=== PATIENT | female | born 1975 | race Caucasian/White ===

== ENCOUNTER → 2020-05-29 08:52 | Outpatient (BNVA) | payer MEDICARE, MEDICAID, SELFPAY | PROVIDERS: PCP Internal Medicine; Visit Provider Surgery | DX: N61.1 Abscess of the breast and nipple (principal) | CPT/HCPCS: 10140; 10160; 99202 ==

== ENCOUNTER → 2020-06-05 09:52 | Outpatient (BNVA) | payer MEDICARE, MEDICAID, SELFPAY | PROVIDERS: PCP Internal Medicine; Visit Provider Surgery | DX: N61.1 Abscess of the breast and nipple (principal) | CPT/HCPCS: 99212 ==

== ENCOUNTER → 2020-07-03 15:44 | Outpatient (BNVA) | payer MEDICARE, MEDICAID, SELFPAY | PROVIDERS: PCP Internal Medicine; Visit Provider Surgery | DX: Z87.2 Personal history of diseases of the skin and subcutaneous tissue (principal) | CPT/HCPCS: 99212 ==

== ENCOUNTER → 2020-07-10 13:16 | Outpatient (BNVA) | payer MEDICARE, MEDICAID, SELFPAY | PROVIDERS: PCP Internal Medicine; Visit Provider Surgery | DX: Z91.89 Other specified personal risk factors, not elsewhere classified (principal) | CPT/HCPCS: 99212 ==

== ENCOUNTER → 2020-07-25 15:47 | Outpatient (BNVA) | payer MEDICARE, MEDICAID, SELFPAY | PROVIDERS: PCP Internal Medicine; Visit Provider Surgery | DX: L73.9 Follicular disorder, unspecified (principal); N61.1 Abscess of the breast and nipple | CPT/HCPCS: 99212 ==

== ENCOUNTER 2021-05-20 12:44 | Outpatient (RCR) | payer MEDICARE, MEDICAID, SELFPAY | END 2021-06-18 15:39 | disposition home or self-care (01) | LOC: HO.WCC 12:44 | PROVIDERS: PCP Internal Medicine; Visit Provider Physician Assistant | DX: T81.31XD Disruption of external operation (surgical) wound, not elsewhere classified, subsequent encounter (principal); L98.492 Non-pressure chronic ulcer of skin of other sites with fat layer exposed; G90.50 Complex regional pain syndrome I, unspecified; N64.89 Other specified disorders of breast; I10 Essential (primary) hypertension; F17.210 Nicotine dependence, cigarettes, uncomplicated | CPT/HCPCS: 11042; 99212 ==

== ENCOUNTER 2021-06-03 13:50 | Outpatient (REF) | payer MEDICARE, MEDICAID, SELFPAY ==
[2021-06-03 14:26] LABS: MANUAL DIFF FLAG NO
[2021-06-03 14:41] LABS: Basophils Percent Auto 0.2 % (0-2); Eosinophils Absolute Auto 0.1 X10*3/uL (0.0-0.4); Eosinophils Percent Auto 1.3 % (0-4); Hematocrit 43.8 % (37.0-47.0); Hemoglobin 15.1 g/dl (12.0-16.0); Imm Gran Abs Auto 0.02 X10*3/uL (0.00-0.03); Imm Gran Pct Auto 0.2 % (0.0-0.4); Lymphocytes Absolute Auto 1.8 X10*3/uL (1.2-4.9); Lymphocytes Percent Auto 21.5 % (20-40); Mean Corpuscular HGB Conc 34.5 g/dl (31.0-35.0); Mean Corpuscular Hemoglobin 30.3 pg (27.0-33.0); Mean Corpuscular Volume 87.8 fL (80.0-98.0); Mean Platelet Volume 9.1 fL (9.4-12.3); Monocytes Absolute Auto 0.3 X10*3/uL (0.1-1.2); Neutrophils Absolute Auto 6.2 x10*3/uL (2.0-8.3); Neutrophils Percent Auto 72.8 % (45-73); Platelet Count 298 X10*3/uL (160-400); Red Blood Count 4.99 X10*6/uL (4.20-5.50); Red Cell Distribution Width 11.9 % (11.0-16.0); White Blood Count 8.5 X10*3/uL (4.8-10.8)
[2021-06-03 14:51] LABS: Estimated Average Glucose 100 mg/dL; Hemoglobin A1C 124.3275 umol/L; Hemoglobin A1c % 5.1 %
[2021-06-03 15:10] LABS: Alanine Aminotransferase 30 U/L (0-31); Albumin Level 4.3 g/dL (3.5-5.0); Alkaline Phosphatase 76 U/L (39-117); Anion Gap 20 (12-20); Aspartate Amino Transferase 26 U/L (5-31); Bilirubin Total 0.6 mg/dL (0.0-1.0); Blood Urea Nitrogen 4 mg/dL (9-16); Calcium 10.3 mg/dL (8.4-10.2); Carbon Dioxide 28 mmol/L (22-29); Chloride 105 mmol/L (96-108); Cholesterol 209 mg/dL; Estimated Glomerular Filt Rate > 60; Glucose Random 100 mg/dL (60-115); HDL Cholesterol 43 mg/dL; LDL Cholesterol Calculated 142 mg/dl; Potassium 3.7 mmol/L (3.3-5.1); Sodium 149 mmol/L (135-145); Total Protein 7.6 g/dL (6.5-8.0); Triglycerides 120 mg/dL; Uric Acid 6.8 mg/dL (2.4-5.7)
[2021-06-03 15:33] LABS: Free T4 (Free Thyroxine) 1.18 ng/dL (0.71-1.85); Thyroid Stimulating Hormone 1.26 uIU/mL (0.32-4.0); Vitamin D 25-OH Total 63.2 ng/mL (>30)
[2021-06-03 15:42] LABS: Folate 14.8 ng/mL (> or = 4.0); Vitamin B12 481 pg/mL (200-900)
== END 2021-06-03 13:51 | disposition home or self-care (01) ==
LOC: HO.LAB 13:50
PROVIDERS: PCP Internal Medicine; Visit Provider Internal Medicine
DX: E78.00 Pure hypercholesterolemia, unspecified (principal); I10 Essential (primary) hypertension
CPT/HCPCS: 36415; 80053; 80061; 82306; 82607; 82746; 83036; 84439; 84443; 84550; 85025

== ENCOUNTER → 2021-10-18 11:24 | Outpatient (BNVA) | payer MEDICARE, MEDICAID, SELFPAY | PROVIDERS: PCP Internal Medicine; Visit Provider Surgery | DX: L72.0 Epidermal cyst (principal); L02.211 Cutaneous abscess of abdominal wall | CPT/HCPCS: 10060; 99212 ==

== ENCOUNTER 2021-11-20 13:58 | Emergency (ER) | payer MEDICARE, MEDICAID, SELFPAY ==
--- NOTE | ~2021-11-20 | XR_ITS ---
EXAMINATION: XR CHEST CLINICAL INFORMATION: Chest pain. COMPARISON: None TECHNIQUE: Frontal view of the chest was obtained. FINDINGS: No significant abnormality is noted involving the heart, lungs, mediastinum, bony thorax or soft tissues. XR/XR chest 1V IMPRESSION: No acute cardiopulmonary process.
[2021-11-20 14:01] VITALS: BP 188/101; PULSE 126; RESP 20; TEMP 37.2; O2SAT 99; BMI 38.7
--- NOTE | 2021-11-20 14:05 | ECG_ITS ---
Test Reason : chest pain Blood Pressure : / mmHG Vent. Rate : 124 BPM Atrial Rate : 124 BPM P-R Int : 172 ms QRS Dur : 084 ms QT Int : 302 ms P-R-T Axes : 021 -04 064 degrees QTc Int : 433 ms Sinus tachycardia Left ventricular hypertrophy with repolarization abnormality ( R in aVL ) Cannot rule out Inferior infarct , age undetermined Abnormal ECG When compared with ECG of 04-FEB-2012 23:57, No significant change was found Referred By: Generic ED Physician Electronically Signed By:KEL BARRETT
[2021-11-20 15:15] VITALS: BP 138/94; PULSE 117; RESP 18; O2SAT 99
[2021-11-20 15:27] LABS: MANUAL DIFF FLAG NO
[2021-11-20 15:29] LABS: Basophils Absolute Auto 0.1 X10*3/uL (0.0-0.2); Basophils Percent Auto 0.5 % (0-2); Eosinophils Absolute Auto 0.1 X10*3/uL (0.0-0.4); Eosinophils Percent Auto 0.9 % (0-4); Hematocrit 44.4 % (37.0-47.0); Hemoglobin 15.4 g/dl (12.0-16.0); Imm Gran Abs Auto 0.03 X10*3/uL (0.00-0.03); Imm Gran Pct Auto 0.3 % (0.0-0.4); Lymphocytes Percent Auto 20.7 % (20-40); Mean Corpuscular HGB Conc 34.7 g/dl (31.0-35.0); Mean Corpuscular Hemoglobin 29.1 pg (27.0-33.0); Mean Corpuscular Volume 83.9 fL (80.0-98.0); Mean Platelet Volume 8.7 fL (9.4-12.3); Monocytes Absolute Auto 0.4 X10*3/uL (0.1-1.2); Monocytes Percent Auto 3.9 % (2-11); Neutrophils Absolute Auto 7.2 x10*3/uL (2.0-8.3); Neutrophils Percent Auto 73.7 % (45-73); Platelet Count 288 X10*3/uL (160-400); Red Blood Count 5.29 X10*6/uL (4.20-5.50); Red Cell Distribution Width 12.7 % (11.0-16.0); White Blood Count 9.8 X10*3/uL (4.8-10.8)
--- NOTE | 2021-11-20 15:32 | PC.NURSE ---
Pt alert and oriented x4. Respirations even and unlabored. IV established, labs drawn and sent.
[2021-11-20 15:44] LABS: Anion Gap 16 (12-20); Blood Urea Nitrogen 3 mg/dL (9-16); Calcium 9.9 mg/dL (8.4-10.2); Carbon Dioxide 27 mmol/L (22-29); Chloride 98 mmol/L (96-108); Creatinine Clr Calc Pharmacy 99.8; Estimated Glomerular Filt Rate > 60; Glucose Random 114 mg/dL (60-115); Potassium 3.1 mmol/L (3.3-5.1); Sodium 138 mmol/L (135-145)
[2021-11-20 15:47] LABS: Troponin-I High Sensitivity < 3.5 ng/L (<3.5-17.0)
--- NOTE | 2021-11-20 16:01 | ED.CHESTPAIN ---
HPI - Chest Pain General Chief Complaint: Chest Pain Stated Complaint: chest pain, dizzy Time Seen by Provider: 11/20/21 15:09 Source: patient Mode of arrival: ambulatory Limitations: no limitations History of Present Illness HPI narrative: This is a 46-year-old female past medical history significant for reflex sympathetic dystrophy currently wheelchair-bound, hypothyroidism, hypertension, migraines, depression, hyperparathyroidism presenting to the emergency department with complaints of chest pain, palpitations, brain ?fogginess? fatigue, malaise since 13:00. Patient tells me that she noticed that her heart was racing, tells me this never happens to her. She reports that these palpitations started when she was lying in bed, relaxing, she reports that then she got substernal chest pain with radiation to the left upper extremity, at times she describes it as pleuritic. She reports that she has a history of hypertension however she checks her blood pressures at they have all been within normal range. She reports that she feels foggy and like something is off. Patient reports to me she is mainly wheelchair bound. Denies any recent travel. Currently on the Mirena IUD. No history of PE or DVT. Related Data Home Medications Medication Instructions Recorded Confirmed amlodipine 10 mg tablet (Norvasc) 10 mg PO DAILY 05/29/20 09/25/21 diazepam 5 mg tablet (Valium) 5 mg PO TID PRN 05/29/20 09/25/21 levothyroxine 125 mcg capsule 125 mcg PO DAILY 05/29/20 09/25/21 meclizine 25 mg tablet 25 mg PO BID 05/29/20 09/25/21 naratriptan 2.5 mg tablet (Amerge) See Rx Instructions PO .COMPLEX 05/29/20 09/25/21 amitriptyline 25 mg tablet 25 mg PO BEDTIME 06/04/21 09/25/21 hydromorphone 8 mg tablet 8 mg PO .every hour PRN 06/04/21 09/25/21 Previous Rx's Medication Instructions Recorded cholecalciferol (vitamin D3) 1,250 1,250 mcg PO QWEEK 90 days #13 caps 02/20/21 mcg (50,000 unit) capsule folic acid 1 mg tablet 1 mg PO DAILY 90 days #90 tabs 02/20/21 blood pressure monitor #1 ea 05/17/21 montelukast 10 mg tablet 10 mg PO BEDTIME #90 tabs 09/16/21 Allergies Allergy/AdvReac Type Severity Reaction Status Date / Time ketamine [KETAMINE] Allergy Severe FULL BODY Verified 11/20/21 14:01 MUSCLE SPASM, CONTRACTIONS, increase in pain - severe sensitivity levofloxacin [From LEVAQUIN] Allergy Severe FLU Verified 11/20/21 14:01 SYMPTOMS sulfamethoxazole Allergy Severe FLU LIKE Verified 11/20/21 14:01 [From BACTRIM DS] SYMPTOMS metoprolol [METOPROLOL] Allergy Unknown MUSCLE Verified 11/20/21 14:01 CONTRACTION,TREMORS Sulfa (Sulfonamide Allergy Unknown UNKNOWN Verified 11/20/21 14:01 Antibiotics) [SULFA (SULFONAMIDE ANTIBIOTICS)] hydrochlorothiazide AdvReac Unknown Unknown Verified 11/20/21 14:01 From TORECAN Allergy Unknown UNKNOWN Uncoded 10/18/21 11:57 steri strips AdvReac Unknown skin Uncoded 10/18/21 11:57 irritation Review of Systems Review of Systems: Constitutional : No Weight loss, No Fever, No Chills, + Fatigue, + Malaise ENT/Mouth : No sore throat, No Rhinorrhea Eyes: No Eye Pain, No Swelling, No Redness Cardiovascular : + Chest Pain, No SOB, No Dyspnea on Exertion, No Orthopnea, No Edema, + Palpitations Respiratory : No Cough, No Sputum, No Wheezing Gastrointestinal : No Nausea, No Vomiting, No Diarrhea, No Constipation, No abdominal Pain, No Hematochezia, No Melena Genitourinary : No Dysuria, No Urinary Frequency, No Hematuria, Musculoskeletal : No joint pain, No Myalgias, No Joint Swelling Skin : No Skin Lesions, No rash Neuro : No Weakness, No Numbness, + Dizziness, No Headache All other systems reviewed and are negative Yes all other systems are reviewed and are negative [facility] Past Medical History Medical History Allergic rhinitis GERD (gastroesophageal reflux disease) Hypercholesterolemia Hypertension Hypothyroidism Ischemic colitis Migraine Overactive bladder Polycystic ovarian disease Primary hyperparathyroidism Psoriasis Reflex sympathetic dystrophy Right distal ulnar fracture Thyroid nodule Tobacco abuse Surgical History History of arthroscopy of right knee (1997) History of cholecystectomy (2010) History of incision and drainage (2007) History of oral surgery (2008) History of placement of ear tubes (1977) History of removal of cyst (1999) History of right knee surgery (2001) Hx of arthroscopy (2015) Hx of removal of cyst (2007) Family History Family History Mother History of breast cancer, Onset Age: 45 Maternal Grandmother History of breast cancer, Onset Age: 60 Paternal Uncle Substance abuse Schizophrenia Paternal Grandfather Substance abuse Maternal Grandfather Substance abuse Social History Social History Housing: Apartment Alcohol intake: never Patient Tobacco Use Status: Current everyday Tobacco user Tobacco use type: Cigarette Cigarettes Per Day: 14 Years Smoked: 6 e-Cigarette/Vaping Use: Never Used Second Hand Smoke Exposure: No Use of substances other than those prescribed or required for medical reasons: No Advance Directives: No Advance Directives Information Provided: No Current occupational status: unemployed Cognitive needs: No Vision needs: No Physical Exam Vital Signs: Vital Signs: Last Vital Signs Temp 99.0 F 11/20/21 14:01 Pulse 93 11/20/21 17:20 Resp 13 11/20/21 17:20 BP 150/93 H 11/20/21 17:20 Pulse Ox 99 11/20/21 17:20 O2 Del Method 11/20/21 17:20 BMI result Body Mass Index 38.7 Course Reevaluation(s) Reevaluation #1: Patient's CBC appears to be around baseline. Potassium slightly low, will be repleted with oral potassium. Other acute electrolyte abnormalities requiring intervention. Troponin negative, EKG nonischemic. BNP within normal limits. CXR with no acute findigns. Dimer pending Time: 16:22 Reevaluation #2: Patient no longer feels like she is having heart palpitations. Feeling slightly better, she tells me she is just feeling extremely tired. Appears well, nontoxic, vital signs stable. Trop pending Time: 18:47 Reevaluation #3: Repeat BMP with improvement potassium. Second troponin negative. Patient is feeling better. I did have a thorough conversation with patient about her laboratory studies, imaging, diagnosis and treatment plan. I advised her to follow-up with cardiology if this continues, she may require a Holter monitor for further evaluation or treatment. I advise her to return with any new or worsening symptoms got outlined he is on her discharge. Time: 20:53 MDM - Chest Pain MDM Narrative Medical decision making narrative: 1600 46-year-old wheelchair-bound female presenting with palpitations, chest pain, brain fogginess since 13:00. Was noted to be tachycardic and hypertensive in triage. Physical examination with a rapid regular rhythm likely sinus tachycardia. No lower extremity edema. Lungs are clear. Abdomen soft nontender nondistended. Neuro exam nonfocal. Normal cerebellar function. Due to patient's sedentary lifestyle a D-dimer will be obtained to rule out PE. Will also rule out ACS or dysrhythmias. Will look for electrolyte abnormalities as well. Plan at this time is basic labs, EKG, chest x-ray, urine, cardiac monitoring, troponin and D-dimer. Medical Records Data Attestation: I reviewed the patient's medical records. Lab Data Attestation: I reviewed the patient's lab results. Result diagrams: 11/20/21 15:11/20/21 20:14 Labs: Lab Results 11/20/21 11/20/21 11/20/21 Range/Units 15:22 15:22 15:22 WBC 9.8 (4.8-10.8) X10*3/uL RBC 5.29 (4.20-5.50) X10*6/uL Hgb 15.4 (12.0-16.0) g/dl Hct 44.4 (37.0-47.0) % MCV 83.9 (80.0-98.0) fL MCH 29.1 (27.0-33.0) pg MCHC 34.7 (31.0-35.0) g/dl RDW 12.7 (11.0-16.0) % Plt Count 288 (160-400) X10*3/uL MPV 8.7 L (9.4-12.3) fL Immature Gran % (Auto) 0.3 (0.0-0.4) % Neut % (Auto) 73.7 H (45-73) % Lymph % (Auto) 20.7 (20-40) % Rush % (Auto) 3.9 (2-11) % Eos % (Auto) 0.9 (0-4) % Baso % (Auto) 0.5 (0-2) % Lymph # (Auto) 2.0 (1.2-4.9) X10*3/uL Rush # (Auto) 0.4 (0.1-1.2) X10*3/uL Eos # (Auto) 0.1 (0.0-0.4) X10*3/uL Baso # (Auto) 0.1 (0.0-0.2) X10*3/uL Abs Immat Gran (auto) 0.03 (0.00-0.03) X10*3/uL Absolute Neuts (auto) 7.2 (2.0-8.3) x10*3/uL Absolute Nucleated RBC 0.000 (0.0-0.012) X10*3/uL Nucleated RBC % (auto) 0.0 (0.0-0.2) /100WBC D-Dimer High Sensitivty NG/ML Sodium 138 (135-145) mmol/L Potassium 3.1 L (3.3-5.1) mmol/L Chloride 98 (96-108) mmol/L Carbon Dioxide 27 (22-29) mmol/L Anion Gap 16 (12-20) BUN 3 L (9-16) mg/dL Creatinine 0.87 (0.5-1.4) mg/dL Estim Creat Clear Calc 99.8 Estimated GFR > 60 Random Glucose 114 (60-115) mg/dL Calcium 9.9 (8.4-10.2) mg/dL Troponin I High Sens < 3.5 (<3.5-17.0) ng/L B-Natriuretic Peptide < 10 (<100) pg/mL 11/20/21 11/20/21 11/20/21 Range/Units 16:39 20:14 20:23 WBC (4.8-10.8) X10*3/uL RBC (4.20-5.50) X10*6/uL Hgb (12.0-16.0) g/dl Hct (37.0-47.0) % MCV (80.0-98.0) fL MCH (27.0-33.0) pg MCHC (31.0-35.0) g/dl RDW (11.0-16.0) % Plt Count (160-400) X10*3/uL MPV (9.4-12.3) fL Immature Gran % (Auto) (0.0-0.4) % Neut % (Auto) (45-73) % Lymph % (Auto) (20-40) % Rush % (Auto) (2-11) % Eos % (Auto) (0-4) % Baso % (Auto) (0-2) % Lymph # (Auto) (1.2-4.9) X10*3/uL Rush # (Auto) (0.1-1.2) X10*3/uL Eos # (Auto) (0.0-0.4) X10*3/uL Baso # (Auto) (0.0-0.2) X10*3/uL Abs Immat Gran (auto) (0.00-0.03) X10*3/uL Absolute Neuts (auto) (2.0-8.3) x10*3/uL Absolute Nucleated RBC (0.0-0.012) X10*3/uL Nucleated RBC % (auto) (0.0-0.2) /100WBC D-Dimer High Sensitivty < 150 NG/ML Sodium 137 (135-145) mmol/L Potassium 3.3 (3.3-5.1) mmol/L Chloride 99 (96-108) mmol/L Carbon Dioxide 25 (22-29) mmol/L Anion Gap 16 (12-20) BUN 2 L (9-16) mg/dL Creatinine 0.82 (0.5-1.4) mg/dL Estim Creat Clear Calc 105.9 Estimated GFR > 60 Random Glucose 105 (60-115) mg/dL Calcium 9.5 (8.4-10.2) mg/dL Troponin I High Sens < 3.5 (<3.5-17.0) ng/L B-Natriuretic Peptide (<100) pg/mL Critical Care Time Critical Care Time Critical Care Time: No Discharge Plan Discharge Clinical Impression: Chest pain not due to acute coronary syndrome, Acute hypokalemia Patient Disposition: Home, Self-Care Instructions: Chest Pain (ED), Noncardiac Chest Pain (ED), Chest Wall Pain (ED) Additional Instructions: Take your medications as prescribed. If you were prescribed antibiotics today, it is important that you take your medication to their entirety, do not skip any doses, do not finish them early. Follow-up with your primary care provider this week. Follow-up with cardiology if this continues, you may require a Holter monitor. Return to the emergency department with new or worsening symptoms. Such as fevers, chills, chest pain, shortness of breath, nausea, vomiting, dizziness, headache, vision changes, lethargy In case of emergency call 911 Your laboratory studies, EKG, chest x-ray, screening test for a blood clot all reassuring. To note your potassium was noted to be on the lower side, your given oral potassium, please have this level recheck by you primary care provider. Prescriptions: No Action montelukast 10 mg tablet 10 mg PO BEDTIME Qty: 90 3RF cholecalciferol (vitamin D3) 1,250 mcg (50,000 unit) capsule 1,250 mcg PO QWEEK 90 Days Qty: 13 2RF folic acid 1 mg tablet 1 mg PO DAILY 90 Days Qty: 90 3RF (DME) blood pressure monitor Kit See Rx Instructions .Route Qty: 1 0RF Rx Instructions: As directed amitriptyline 25 mg tablet 25 mg PO BEDTIME amlodipine [Norvasc] 10 mg tablet 10 mg PO DAILY levothyroxine 125 mcg capsule 125 mcg PO DAILY meclizine 25 mg tablet 25 mg PO BID diazepam [Valium] 5 mg tablet 5 mg PO TID PRN naratriptan [Amerge] 2.5 mg tablet See Rx Instructions PO .COMPLEX Rx Instructions: take 1 tab at onset of headache; if no relief may repeat 1 tab after at least 4 hrs; max = 2 tabs/24 hrs PO hydromorphone 8 mg tablet 8 mg PO .every hour PRN Label Comments: 6 in a day Referrals: Robinson Modi MD [Physician] - 1 week Po,Marimar Arguelles MD [Primary Care Provider] - 2 days Stand Alone Forms: Work/School Release
[2021-11-20] MEDS: 0.9 % Sodium Chloride 1,000 ML 999 ML IV (16:16)
[2021-11-20 16:27] LABS: B Type Natriuretic Peptide < 10 pg/mL (<100)
[2021-11-20] MEDS: Potassium Chloride ER 20 MEQ TAB.ER.PRT 40 MEQ PO (16:49)
[2021-11-20 17:20] VITALS: BP 150/93; PULSE 93; RESP 13; O2SAT 99
[2021-11-20 17:48] LABS: D Dimer High Sensitivity < 150 NG/ML
[2021-11-20] MEDS: Ketorolac Tromethamine 15 MG/ML VIAL IVPUSH (19:43)
[2021-11-20 20:38] LABS: Anion Gap 16 (12-20); Blood Urea Nitrogen 2 mg/dL (9-16); Calcium 9.5 mg/dL (8.4-10.2); Carbon Dioxide 25 mmol/L (22-29); Chloride 99 mmol/L (96-108); Creatinine Clr Calc Pharmacy 105.9; Estimated Glomerular Filt Rate > 60; Glucose Random 105 mg/dL (60-115); Potassium 3.3 mmol/L (3.3-5.1); Sodium 137 mmol/L (135-145)
[2021-11-20 20:50] LABS: Troponin-I High Sensitivity < 3.5 ng/L (<3.5-17.0)
== END 2021-11-20 21:20 | disposition home or self-care (01) ==
PROVIDERS: Physician Assistant; Emergency Provider Emergency Medicine Emergency Medical Services; PCP Internal Medicine
DX: R07.89 Other chest pain (principal); E87.6 Hypokalemia; R00.0 Tachycardia, unspecified; R00.2 Palpitations; I10 Essential (primary) hypertension; E78.00 Pure hypercholesterolemia, unspecified; G90.50 Complex regional pain syndrome I, unspecified; F17.210 Nicotine dependence, cigarettes, uncomplicated
CPT/HCPCS: 36415; 71045; 80048; 83880; 84484; 85025; 85379; 93005; 96374; 99284; 99285; J1885

== ENCOUNTER 2021-11-26 09:40 | Outpatient (REF) | payer MEDICARE, MEDICAID, SELFPAY ==
[2021-11-26 09:50] VITALS: BP 160/75; PULSE 110; RESP 16; TEMP 37; O2SAT 99
[2021-11-26 09:51] VITALS: BMI 37.5
--- NOTE | 2021-11-26 11:14 | W.PM.OPN ---
Operative Note Operative Note Date of Service: 11/26/21 Narrative: Preoperative diagnosis: Skin cyst right groin, right upper inner thigh; left groin abscess Postoperative diagnosis:same Procedure:Excision of skin cyst right groin and right upper inner thigh; incision and drainage of left groin abscess Surgeon: Armando Kamara MD Roller Checker: no physician Anesthesia:Local Indications for procedure: 46-year-old female presenting with several previous infected cysts of the right groin right upper inner thigh status post incision and drainage now presenting for excision to prevent further infection. She also presents with a new abscess in the left groin which she is requesting incision and drainage. Operative findings: 1.5 cm epidermal inclusion cyst of the right groin at the groin crease, 1.5 cm epidermal inclusion cyst at the right upper inner thigh, abscess of the left groin measured approximately 1 cm. Specimen: Epidermal inclusion cyst right groin and right upper inner thigh Estimated blood loss: less than 2 mL Complications: none Procedure details: patient was brought to the minor surgery suite and placed in a supine position. The site of surgery confirmed by the patient in the right groin, right upper inner thigh and left groin. After assuring informed consent, skin was prepped with Betadine and draped in a sterile fashion. Local anesthesia consisting of lidocaine 1% with epinephrine was then infiltrated around the 3 cysts. Beginning in the right groin an elliptical incision oriented transversely was then created around the epidermal inclusion cyst. This was carried down through subcutaneous tissue and around the cyst wall. Specimen was excised and sent to pathology for further examination. After assuring adequate hemostasis the skin was closed using a running 3-0 nylon suture. Attention was then directed to the right upper inner thigh lesion. Again an elliptical incision was created with scalpel and carried out through subcutaneous tissue around the cyst wall. This was oriented in a transverse fashion as well. The lesion was completely excised and passed off the table. This was sent to pathology for further examination. Skin was then closed using a running 3-0 nylon suture. Attention was then directed to the left groin abscess. Fifteen blade was used to open the abscess completely. Small amount of purulent discharge in sebaceous material was evacuated. This was then irrigated with saline solution. No packing was applied. Sterile dressings were applied to the 3 wounds and covered with Medipore tape. The patient tolerated the procedure well. She was discharged to home in stable condition.
== END 2021-11-26 09:41 | disposition home or self-care (01) ==
LOC: HO.MS 09:40
PROVIDERS: PCP Internal Medicine; Visit Provider Surgery
PROC: (CPT 10060; principal; 2021-11-26 10:00)
DX: L02.214 Cutaneous abscess of groin (principal); L72.0 Epidermal cyst; L72.8 Other follicular cysts of the skin and subcutaneous tissue
CPT/HCPCS: 10060; 11402 ×2; 88304

== ENCOUNTER → 2021-12-03 13:30 | Outpatient (REF) | payer MEDICARE, MEDICAID, SELFPAY ==
--- NOTE | 2021-12-03 13:34 | ECG_ITS ---
Hook-up date: 2021-12-03 12:40:00 Duration: 47:59:00 Test Indications: CHEST PAIN Medications: [id number] QRS complexes 1 Ventricular ectopics which represent <1 % of total QRS comp. 28 Supraventricular ectopics which represent <1 % of total QRS comp. * Paced QRS complexs which represent % of total QRS comp. VENTRICULAR ECTOPY 1 Isolated 0 Bigeminal Cycles 0 Couplets 0 Runs 0 Beats in Runs * Beats LONGEST at * BPM at :: -- * Beats FASTEST at * BPM at :: -- SUPRAVENTRICULAR ECTOPY 26 Isolated 1 Couplets 0 Runs 0 Beats in Runs * Beats LONGEST at * BPM at :: -- * Beats FASTEST at * BPM at :: -- HEART RATES 59 MIN at 03:37:46 2021-12-04 73 AVG 130 MAX at 12:00:43 2021-12-05 LONGEST RR 1.0400 secs at 13:52:38 2021-12-04 S-T LEVELS Channel 1 - 128 mm at 12:40:00 2021-12-03 - 128 mm at 12:40:00 2021-12-03 Channel 2 - 128 mm at 12:40:00 2021-12-03 - 128 mm at 12:40:00 2021-12-03 Channel 3 - 128 mm at 03:15:91 -- - 128 mm at 03:15:91 Basic rhythm Normal sinus rhythm No long pause or profound bradycardia Rare Premature atrial complexes Patient reported symptoms correlate with NSR Referred By: Marimar Kimble Overread By: AHSAN MCKEON MD
== END ==
LOC: HO.CARD 13:30
PROVIDERS: PCP Internal Medicine; Visit Provider Internal Medicine
DX: R07.9 Chest pain, unspecified (principal)
CPT/HCPCS: 93226

== ENCOUNTER → 2021-12-05 12:58 | Outpatient (BNVA) | payer MEDICARE, MEDICAID, SELFPAY | PROVIDERS: PCP Internal Medicine; Visit Provider Surgery | DX: Z48.02 Encounter for removal of sutures (principal) | CPT/HCPCS: 99211 ==

== ENCOUNTER → 2021-12-11 14:58 | Outpatient (REF) | payer MEDICARE, MEDICAID, SELFPAY ==
--- NOTE | 2021-12-11 15:01 | CA_ITS ---
Transthoracic Echocardiogram Patient (Last, First, Middle): Janeth Marie A Gender: Female Date of : 1975 Age: 46 Procedure Date: 12/11/2021 Procedure Type: Transthoracic Echocardiogram Location: OP Height: 167.64 cm Weight: 108.86 kg BSA: 2.16 m2 Heart Rate: bpm BP: 130 / 82 mmHg Home Office Claim Specialist: MECHELLE Referring MD: Marimar Kimble MD Lamination Operator: Filipe Saavedra MD Symptoms: I10 - Essential (primary) hypertension Study Quality: Fair ECG Rhythm: Sinus Conclusions: - 1. Normal LV systolic function with mild LVH with grade 1 diastolic dysfunction 2. Normal cardiac valvular Doppler 3. Normal RV systolic pressure 4. Trivial pericardial effusion Findings Left Ventricle Normal left ventricular size and systolic function. There is mildly increased left ventricular wall thickness. The visually estimated ejection fraction is between 60-65%. Spectral Doppler is indicative of an impaired relaxation filling pattern. E/E prime ratio is <8, consistent with normal filling pressures. Evidence suggests grade I (mild) diastolic dysfunction. Right Ventricle Normal right ventricular cavity size and systolic function. Atria The left atrium is normal in size. There is lipomatous hypertrophy of the interatrial septum. Interatrial shunt cannot be excluded. The right atrium is normal in size. Aortic Valve Normal aortic valve structure and function. There is no aortic valve stenosis. There is no aortic valve regurgitation. Mitral Valve Normal mitral valve structure and function. There is trace mitral valve regurgitation. There is no mitral valve stenosis. Pulmonic Valve The pulmonic valve was not well visualized. Tricuspid Valve Likely normal tricuspid valve structure and function. There is trace tricuspid valve regurgitation. The right ventricular systolic pressure is normal. The right ventricular systolic pressure is 13 mmHg. Normal right atrial pressure. There is no evidence of pulmonary hypertension. Great Vessels All visible segments of the aorta are normal in size. The pulmonary artery was not well visualized. Venous The inferior vena cava is normal in size and collapses greater than 50% with inspiration. Pericardium/Pleural There is a trivial pericardial effusion. Prior Study Comparison No prior study available for comparison. Measurements 2D Linear Measurements IVSd: 1.20 0.6-0.9/0.6-1.0 cm LVIDd: 4.22 3.9-5.3/4.2-5.9 cm LVIDd Index: 1.95 2.4-3.2/2.2-3.1 cm/m2 LVIDs: 2.72 2.0-3.6 cm LVPWd: 1.20 0.7-1.1 cm Ao Root: 2.80 2.1-3.5 cm LA Diam: 4.20 2.7-3.8/3.0-4.0 cm LAIDs Index: 1.94 1.5-2.3 cm/m2 LV Mass: 223.56 67-162/88-224 g LV Mass Index: 103.50 43-95/49-115 g/m2 LVOT Diam: 2.00 3.0+(-)1.3 cm 2D Systolic Function EF 4C: 62.50 >55% EF 2C: 59.30 >55% EF BiP: 61.20 >55% Mitral Valve MV Pk E: 0.78 MV PK A: 0.81 MV Decel Time: 205.00 E/A: 1.00 E'Lateral: 11.70 E'Medial: 9.36 E/E' Med: 8.30 E/E' Lat: 6.60 PHT: 60.00 MVA PHT: 3.67 Decel Wise: 3.78 Aortic Valve AoV Pk Vidal: 1.26 AoV Mn Vidal: 0.84 AoV VTI: 0.30 AoV Pk Grad: 6.00 Aov Mn Grad: 3.00 CARMEN Cont.VTI: 2.38 LVOT LVOT Pk Vidal: 1.11 LVOT Mn Vidal: 0.74 LVOT VTI: 0.23 LVOT Pk Grad: 5.00 LVOT Mn Grad: 3.00 LVOT Diam: 2.00 LVOT Area: 3.14 Diastolic Function MV Pk E: 0.78 MV Pk A: 0.81 E/A: 1.00 E'Medial: 9.36 E/E' Med: 8.30 E' Laterial: 11.70 E/E' Lat: 6.60 Right Ventricle TAPSE (mm): 23.40 TVS' Vidal: 10.30 Tricuspid Valve TR Pk Vidal: 1.59 TR Pk Grad: 10.00 RA Press: 3.00 RVSP: 13.00 Great Vessels Aorta Ao Root-2D: 2.80 2.0-3.7 cm Pulmonary Valve PV Pk Vidal: 1.09 Peak PV Grad: 5.00 Updated in Other Vendor System with Status of Final Filipe Saavedra MD electronically signed on 12/12/2021 8:36:00 AM with status of Final
== END ==
LOC: HO.CARD 14:58
PROVIDERS: PCP Internal Medicine; Visit Provider Internal Medicine
DX: I10 Essential (primary) hypertension (principal)
CPT/HCPCS: 93306

== ENCOUNTER 2022-01-03 14:10 | Outpatient (REF) | payer MEDICARE, MEDICAID, SELFPAY ==
[2022-01-03 15:05] LABS: Alanine Aminotransferase 20 U/L (0-31); Albumin Level 4.4 g/dL (3.5-5.0); Alkaline Phosphatase 83 U/L (39-117); Anion Gap 13 (12-20); Aspartate Amino Transferase 19 U/L (5-31); Bilirubin Total 0.7 mg/dL (0.0-1.0); Blood Urea Nitrogen 5 mg/dL (9-16); Calcium 10.3 mg/dL (8.4-10.2); Carbon Dioxide 27 mmol/L (22-29); Chloride 99 mmol/L (96-108); Estimated Glomerular Filt Rate > 60; Glucose Random 126 mg/dL (60-115); Potassium 3.9 mmol/L (3.3-5.1); Sodium 135 mmol/L (135-145); Total Protein 7.6 g/dL (6.5-8.0)
[2022-01-05 13:31] LABS: Calcium (PTHI) 10.3 mg/dL (8.6-10.2); PTHI 60 pg/mL (16-77)
== END 2022-01-03 14:11 | disposition home or self-care (01) ==
LOC: HO.LAB 14:10
PROVIDERS: PCP Internal Medicine; Visit Provider Internal Medicine
DX: E83.52 Hypercalcemia (principal); E87.0 Hyperosmolality and hypernatremia
CPT/HCPCS: 36415; 80053; 83970

== ENCOUNTER → 2022-02-18 14:56 | Outpatient (BNVA) | payer MEDICARE, MEDICAID, SELFPAY | PROVIDERS: PCP Internal Medicine; Referring Provider Internal Medicine; Visit Provider Internal Medicine | DX: R00.0 Tachycardia, unspecified (principal) | CPT/HCPCS: 99202 ==

== ENCOUNTER 2022-07-18 14:20 | Outpatient (REF) | payer MEDICARE, MEDICAID, SELFPAY ==
[2022-07-18 14:37] LABS: MANUAL DIFF FLAG NO
[2022-07-18 15:18] LABS: Basophils Percent Auto 0.4 % (0-2); Eosinophils Absolute Auto 0.1 X10*3/uL (0.0-0.4); Eosinophils Percent Auto 1.6 % (0-4); Hematocrit 42.6 % (37.0-47.0); Hemoglobin 14.8 g/dl (12.0-16.0); Imm Gran Abs Auto 0.02 X10*3/uL (0.00-0.03); Imm Gran Pct Auto 0.3 % (0.0-0.4); Lymphocytes Absolute Auto 1.6 X10*3/uL (1.2-4.9); Lymphocytes Percent Auto 21.2 % (20-40); Mean Corpuscular HGB Conc 34.7 g/dl (31.0-35.0); Mean Corpuscular Hemoglobin 30.2 pg (27.0-33.0); Mean Corpuscular Volume 86.9 fL (80.0-98.0); Mean Platelet Volume 9.6 fL (9.4-12.3); Monocytes Absolute Auto 0.3 X10*3/uL (0.1-1.2); Monocytes Percent Auto 3.7 % (2-11); Neutrophils Absolute Auto 5.6 x10*3/uL (2.0-8.3); Neutrophils Percent Auto 72.8 % (45-73); Platelet Count 295 X10*3/uL (160-400); Red Cell Distribution Width 12.1 % (11.0-16.0); White Blood Count 7.6 X10*3/uL (4.8-10.8)
[2022-07-18 15:55] LABS: Estimated Average Glucose 100 mg/dL; Hemoglobin A1c % 5.1 %
[2022-07-18 16:14] LABS: Alanine Aminotransferase 23 U/L (0-31); Albumin Level 4.2 g/dL (3.5-5.0); Alkaline Phosphatase 90 U/L (39-117); Anion Gap 14 (12-20); Aspartate Amino Transferase 17 U/L (5-31); Bilirubin Total 0.7 mg/dL (0.0-1.0); Blood Urea Nitrogen 5 mg/dL (9-16); Carbon Dioxide 27 mmol/L (22-29); Chloride 101 mmol/L (96-108); Cholesterol 202 mg/dL; Estimated Glomerular Filt Rate > 60; Glucose Random 100 mg/dL (60-115); HDL Cholesterol 33 mg/dL; LDL Cholesterol Calculated 146 mg/dl; Sodium 138 mmol/L (135-145); Total Protein 7.2 g/dL (6.5-8.0); Triglycerides 117 mg/dL
[2022-07-18 16:26] LABS: Folate 14.1 ng/mL (> or = 4.0); Free T4 (Free Thyroxine) 1.18 ng/dL (0.71-1.85); Thyroid Stimulating Hormone 1.97 uIU/mL (0.32-4.0); Vitamin B12 328 pg/mL (200-900); Vitamin D 25-OH Total 69.7 ng/mL (>30)
== END 2022-07-18 14:21 | disposition home or self-care (01) ==
LOC: HO.LAB 14:20
PROVIDERS: PCP Internal Medicine; Visit Provider Internal Medicine
DX: E78.00 Pure hypercholesterolemia, unspecified (principal); E55.9 Vitamin D deficiency, unspecified; R73.09 Other abnormal glucose
CPT/HCPCS: 36415; 80053; 80061; 82306; 82607; 82746; 83036; 84439; 84443; 85025

== ENCOUNTER → 2022-10-10 08:21 | Outpatient (BNVA) | payer MEDICARE, MEDICAID, SELFPAY | PROVIDERS: PCP Internal Medicine; Visit Provider Surgery | DX: L72.0 Epidermal cyst (principal) | CPT/HCPCS: 99212 ==

== ENCOUNTER 2022-11-06 13:36 | Outpatient (REF) | payer MEDICARE, MEDICAID, SELFPAY ==
[2022-11-06 13:53] VITALS: BP 163/81; PULSE 73; RESP 16; TEMP 36.7; O2SAT 98
[2022-11-06 13:55] VITALS: BMI 40.8
[2022-11-06 15:00] VITALS: BP 142/66; PULSE 81; RESP 16; O2SAT 96
--- NOTE | 2022-11-07 13:40 | P.OP_ITS ---
Operative Note Operative Note Date of Service: 11/06/22 Narrative: Preoperative diagnosis: Epidermal inclusion cyst right breast, right chest, and midback Postoperative diagnosis: Same Procedure: Excision of epidermal inclusion cyst right breast, right chest, and midback Surgeon: Armando Kamara MD Thread Reeler: None Anesthesia: Local Indications for procedure: 39-year-old female patient with RSD presenting with palpable painful skin lesions involving the right breast at the 4 o'clock position, lower chest in a inframammary location anterior axillary line and posterior midback each measuring approximately 2 cm in diameter. Operative findings: Epidermal inclusion cyst at the sites noted above Specimen: Epidermal inclusion cyst x3, right breast, right chest, midback Estimated blood loss: 2 mL Complications: None Procedure details: Patient was brought to the minor surgery suite and placed in a supine position. The site of surgery was confirmed by the patient in the right breast in the right chest below the breast in the anterior axillary line. After assuring informed consent the skin was prepped with Betadine and draped in a sterile fashion. Local anesthesia was then infiltrated around the breast lesion an elliptical fashion. Elliptical incision was then made to include a portion of the overlying skin. This was then carried out through subcutaneous tissue and around the cyst wall. Sharp dissection was used to dissect the cyst from the surrounding subcutaneous tissue. The lesion was passed off the table and labeled as right breast cyst. Skin was then reapproximated using interrupted 3-0 Polysorb sutures. Skin was closed using interrupted 3-0 nylon sutures. Sterile dressings were then applied. Attention was then directed to the right chest lesion. Local anesthesia was infiltrated circumferentially. Elliptical incision oriented transversely was then created with a 15 blade. This carried out through subcutaneous tissue and around the cyst wall. The lesion was excised and sent to pathology for further examination. Skin was reapproximated using interrupted 3-0 Polysorb sutures in dermis followed by 3-0 nylon sutures in skin. Sterile dressings consisting of 2 x 2 gauze and Tegaderm were then applied. Attention was then directed to the back. The patient was placed in a sitting position. The site of surgery was confirmed by the patient in the mid back. The skin was then prepped with Betadine and draped in a sterile fashion. Local anesthesia was then infiltrated circumferentially. Elliptical incision was then created with the scalpel oriented transversely. This was carried out through subcutaneous tissue and around the cyst wall. The dissection was continued circumferentially in lesion excised using scalpel. The lesion was passed off the table and sent to pathology for further examination, labeled back skin cyst. Dermis was then reapproximated using interrupted 3-0 Polysorb sutures. Skin was then closed using interrupted 4-0 nylon sutures. Sterile dressings consisting of 2 x 2 gauze and Tegaderm were then applied. The patient tolerated the procedure well. She was discharged in stable condition.
== END 2022-11-06 13:37 | disposition home or self-care (01) ==
LOC: HO.MS 13:36
PROVIDERS: PCP Internal Medicine; Visit Provider Surgery
PROC: (CPT 11402; principal; 2022-11-06 14:00)
DX: L72.0 Epidermal cyst (principal)
CPT/HCPCS: 11402 ×3; 88304

== ENCOUNTER → 2022-11-06 13:36 | Outpatient (BNV) | payer MEDICARE, MEDICAID, SELFPAY | PROVIDERS: PCP Internal Medicine; Visit Provider Surgery | DX: L72.0 Epidermal cyst (principal) | CPT/HCPCS: 11402 ==

== ENCOUNTER 2022-11-18 09:37 | Outpatient (AMB) | payer MEDICARE, MEDICAID, SELFPAY ==
--- NOTE | 2022-11-18 09:38 | A.OFFVIS_ITS ---
Intake Intake Visit Reasons: S/P exc. cyst Rt brst; Rt under brst & Lt back Intake Note: Patient is seen in office for post op assessment post excision of multiple cysts. Patient c/o: Allergies ketamine [KETAMINE] Allergy (Severe, Verified 10/10/22 08:38) FULL BODY MUSCLE SPASM, CONTRACTIONS, increase in pain - severe sensitivity levofloxacin [From LEVAQUIN] Allergy (Severe, Verified 10/10/22 08:38) FLU SYMPTOMS sulfamethoxazole [From BACTRIM DS] Allergy (Severe, Verified 10/10/22 08:38) FLU LIKE SYMPTOMS metoprolol [METOPROLOL] Allergy (Unknown, Verified 10/10/22 08:38) MUSCLE CONTRACTION,TREMORS Sulfa (Sulfonamide Antibiotics) [SULFA (SULFONAMIDE ANTIBIOTICS)] Allergy (Unknown, Verified 10/10/22 08:38) UNKNOWN hydrochlorothiazide Adverse Reaction (Unknown, Verified 10/10/22 08:38) Unknown From TORECAN Allergy (Unknown, Uncoded 10/10/22 08:38) UNKNOWN steri strips Adverse Reaction (Unknown, Uncoded 10/10/22 08:38) skin irritation HPI HPI Comments History of Present Illness Details 47-year-old female patient returning 1 week following excision of epidermal inclusion cyst involving the right chest, right breast, and back 1 week ago on 11/06/2022. Pathology confirmed ruptured epidermal inclusion cyst x3. She tolerated the procedure well returns today for suture removal. She reports some burning from the right chest incision but generally feels well. [facility] Medical History Allergic rhinitis GERD (gastroesophageal reflux disease) Hypercholesterolemia Hypertension Hypothyroidism Incisional breast wound Ischemic colitis Migraine Overactive bladder Polycystic ovarian disease Primary hyperparathyroidism Psoriasis Rash Reflex sympathetic dystrophy Right distal ulnar fracture Thyroid nodule Tobacco abuse Surgical History History of arthroscopy of right knee (1997) History of cholecystectomy (2010) History of excision of mass (11/06/22) History of incision and drainage (2007) History of oral surgery (2008) History of placement of ear tubes (1977) History of removal of cyst (1999) History of right knee surgery (2001) Hx of arthroscopy (2015) Hx of removal of cyst (2007) Family History Mother History of breast cancer, Onset Age: 45 Maternal Grandmother History of breast cancer, Onset Age: 60 Paternal Uncle Substance abuse Schizophrenia Paternal Grandfather Substance abuse Maternal Grandfather Substance abuse Other Mental health disorder Social History Housing: Apartment Alcohol intake: never Patient Tobacco Use Status: Current everyday Tobacco user Tobacco use type: Cigarette Cigarettes Per Day: 15 Years Smoked: 6 e-Cigarette/Vaping Use: Never Used Second Hand Smoke Exposure: No Current occupational status: unemployed Cognitive needs: No Hearing needs: No Vision needs: Yes Physical Exam Const General: no acute distress Limitations: wheelchair Chest Chest/axillae images: 1. Right breast incision is clean intact with some redness at the site of sutures. 2. Right chest incision is clean, dry and intact with some redness associated with the sutures only. Back/Spine/Pelvis Back/spine/pelvis image: 1. Incision in the upper back is clean, dry, and intact. Assessment & Plan Assessment & Plan (1) Epidermal inclusion cyst: Code(s): L72.0 - Epidermal cyst Plan Patient returns 1 week following excision of 3 epidermal inclusion cyst including 2 in the right chest and 1 on the left back. She tolerated the procedure well. Wounds are clean, dry and intact. Sutures were removed. No Steri-Strips were applied due to a previously described allergy. She should return as needed. Coding Level of Care Code Global (05466) Diagnoses Epidermal inclusion cyst L72.0
== END 2022-11-18 09:57 | disposition home or self-care (01) ==
PROVIDERS: PCP Internal Medicine; Visit Provider Surgery
DX: L72.0 Epidermal cyst (principal)
CPT/HCPCS: 99024

== ENCOUNTER → 2022-11-18 09:37 | Outpatient (BNVA) | payer MEDICARE, MEDICAID, SELFPAY | PROVIDERS: PCP Internal Medicine; Visit Provider Surgery ==

== ENCOUNTER 2023-01-29 14:19 | Outpatient (REF) | payer MEDICARE, MEDICAID, SELFPAY ==
--- NOTE | ~2023-01-29 | XR_ITS ---
EXAMINATION: XR PELVIS CLINICAL INFORMATION: Pain in unspecified hip COMPARISON: None available. TECHNIQUE: AP view of the pelvis. FINDINGS: IUD in the pelvis. Moderate degenerative changes in the imaged lower lumbar spine. Mild to moderate superior joint space narrowing with hypertrophic change in the right hip. Mild to moderate joint space narrowing of the left hip joint space with abundant hypertrophic change along the lateral aspect of the acetabulum. XR/XR pelvis 1-2V IMPRESSION: Mild to moderate degenerative changes in the bilateral hips. Additional imaging with CT scan or MRI should be considered for better visualization as these modalities are much more sensitive for detection of fracture or other underlying pathology.
== END 2023-01-29 14:20 | disposition home or self-care (01) ==
LOC: HO.HOSX 14:19
PROVIDERS: Visit Provider Orthopaedic Surgery
DX: M76.891 Other specified enthesopathies of right lower limb, excluding foot (principal)
CPT/HCPCS: 72170; 99202

== ENCOUNTER 2023-01-29 14:47 | Outpatient (AMB) | payer MEDICARE, MEDICAID, SELFPAY ==
--- NOTE | 2023-01-29 14:48 | MHC.OFFVIS ---
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 She was seen with pain mgmt who states that her pain is originating from illiac spine of pelvic bone. She also complains of pain in the right shoulder and expains this pain as a pulling pain around her shoulder. History of back injections, nerve blocks, spinal chord stimulor all with unsuccessful pain releif. Allergies ketamine [KETAMINE] Allergy (Severe, Verified 10/10/22 08:38) FULL BODY MUSCLE SPASM, CONTRACTIONS, increase in pain - severe sensitivity levofloxacin [From LEVAQUIN] Allergy (Severe, Verified 10/10/22 08:38) FLU SYMPTOMS sulfamethoxazole [From BACTRIM DS] Allergy (Severe, Verified 10/10/22 08:38) FLU LIKE SYMPTOMS metoprolol [METOPROLOL] Allergy (Unknown, Verified 10/10/22 08:38) MUSCLE CONTRACTION,TREMORS Sulfa (Sulfonamide Antibiotics) [SULFA (SULFONAMIDE ANTIBIOTICS)] Allergy (Unknown, Verified 10/10/22 08:38) UNKNOWN hydrochlorothiazide Adverse Reaction (Unknown, Verified 10/10/22 08:38) Unknown From TORECAN Allergy (Unknown, Uncoded 10/10/22 08:38) UNKNOWN steri strips Adverse Reaction (Unknown, Uncoded 10/10/22 08:38) skin irritation HPI Career Resource Technician- Joint Pain hip/ Shoulder HPI Details Janeth is a patient who has complex regional pain syndrome/RSD and has been seen for years by the pain management department at [facility]. As I have seen her off and on for different musculoskeletal disorders and today she comes in complaining of right anterior leg pain. She denies groin pain. She does not really think it is her hip joint it is more over the anterior aspect of her proximal pelvis. She denies injury. She walks with a walker at home but often uses a wheelchair. [facility] Medical History Allergic rhinitis GERD (gastroesophageal reflux disease) Hypercholesterolemia Hypertension Hypothyroidism Incisional breast wound Ischemic colitis Migraine Overactive bladder Polycystic ovarian disease Primary hyperparathyroidism Psoriasis Rash Reflex sympathetic dystrophy Right distal ulnar fracture Thyroid nodule Tobacco abuse Surgical History History of arthroscopy of right knee (1997) History of cholecystectomy (2010) History of excision of mass (11/06/22) History of incision and drainage (2007) History of oral surgery (2008) History of placement of ear tubes (1977) History of removal of cyst (1999) History of right knee surgery (2001) Hx of arthroscopy (2015) Hx of removal of cyst (2007) Family History Mother History of breast cancer, Onset Age: 45 Maternal Grandmother History of breast cancer, Onset Age: 60 Paternal Uncle Substance abuse Schizophrenia Paternal Grandfather Substance abuse Maternal Grandfather Substance abuse Other Mental health disorder Social History Housing: Apartment Alcohol intake: never Patient Tobacco Use Status: Current everyday Tobacco user Tobacco use type: Cigarette Cigarettes Per Day: 15 Years Smoked: 6 e-Cigarette/Vaping Use: Never Used Second Hand Smoke Exposure: No Current occupational status: unemployed Cognitive needs: No Hearing needs: No Vision needs: Yes Review of Systems Const All systems reviewed & are unremarkable except as noted in HPI and below Physical Exam Const General: no acute distress, alert and awake Orientation/consciousness: patient oriented x3 HEENT Head: Yes normocephalic and Yes atraumatic Eyes EOM: EOMs intact bilaterally Resp Effort & Inspection: normal respiratory effort and able to speak in complete sentences Cardio Jugular venous distension: no JVD Skin General skin exam: turgor normal Rashes: no rashes Neuro General: patient oriented x3 Extrem Other: She is sitting comfortably in a wheelchair. She has some internal rotation of the right hip it is but she has no groin pain or restriction of range of motion with passive hip motion. She does have tenderness along the anterior spur daily superior iliac spine down the anterior femur. This is [id number] but slightly worse with resisted hip flexion. Psych Appearance: grossly normal Affect: normal affect Attitude: cooperative Results Reviewed Results Reviewed: deep acetabulum with bilateral overcoverage and mild OA Assessment & Plan Assessment & Plan (1) Hip flexor tendinitis: Code(s): M76.899 - Other specified enthesopathies of unspecified lower limb, excluding foot Plan: Hip flexor tightness. PT for stretching Orders: Orders XR pelvis 1-2V 01/29/23 M25.559 - Pain in unspecified hip Coding Level of Care Code New Pt Level 3 (50982) Diagnoses Hip flexor tendinitis M76.899
== END 2023-01-29 15:41 | disposition home or self-care (01) ==
PROVIDERS: PCP Internal Medicine; Visit Provider Orthopaedic Surgery
DX: M76.899 Other specified enthesopathies of unspecified lower limb, excluding foot (principal); M16.0 Bilateral primary osteoarthritis of hip
CPT/HCPCS: 99203

== ENCOUNTER 2023-02-23 15:52 | Outpatient (AMB) | payer MEDICARE, MEDICAID, SELFPAY ==
--- NOTE | 2023-02-23 15:59 | A.OFFPC_ITS ---
Vital Signs 02/23/23 16:00 Height 5 ft 6 in BMI Reason not done Patient refused/unable BP 144/98 H Blood Pressure Location Lt brachial Position Sitting Pulse 82 Pulse Source Pulse Oximeter Pulse Oximetry (%) 95 Oxygen Delivery Method Room Air Intake Visit Reasons: 6M follow up Allergies ketamine [KETAMINE] Allergy (Severe, Verified 02/23/23 16:01) FULL BODY MUSCLE SPASM, CONTRACTIONS, increase in pain - severe sensitivity levofloxacin [From LEVAQUIN] Allergy (Severe, Verified 02/23/23 16:01) FLU SYMPTOMS sulfamethoxazole [From BACTRIM DS] Allergy (Severe, Verified 02/23/23 16:01) FLU LIKE SYMPTOMS metoprolol [METOPROLOL] Allergy (Unknown, Verified 02/23/23 16:01) MUSCLE CONTRACTION,TREMORS Sulfa (Sulfonamide Antibiotics) [SULFA (SULFONAMIDE ANTIBIOTICS)] Allergy (Unknown, Verified 02/23/23 16:01) UNKNOWN hydrochlorothiazide Adverse Reaction (Unknown, Verified 02/23/23 16:01) Unknown From TORECAN Allergy (Unknown, Uncoded 02/23/23 16:01) UNKNOWN steri strips Adverse Reaction (Unknown, Uncoded 02/23/23 16:01) skin irritation Medication List - Last Reconciled 02/23/23 by Marimar Kimble MD amitriptyline 25 mg PO BEDTIME 90 days amlodipine (Norvasc) 10 mg PO DAILY blood pressure monitor As directed cholecalciferol (vitamin D3) 1,250 mcg PO QWEEK 90 days fexofenadine (Hamida Allergy) 180 mg PO DAILY folic acid 1 mg PO DAILY 90 days hydromorphone 1-2 tabs orally EVERY 3 HOUR PRN; for moderate to severe pain levothyroxine 125 mcg PO DAILY meclizine 25 mg PO BID montelukast 10 mg PO BEDTIME naratriptan (Amerge) take 1 tab at onset of headache; if no relief may repeat 1 tab after at least 4 hrs; max = 2 tabs/24 hrs PO propranolol ER 60 mg PO BEDTIME sertraline 12.5 mg (1/2 x 25 mg) PO DAILY 90 days Tobacco use date assessed: 02/23/23 HPI 6M follow up HPI Details 47-year-old wheelchair borne female with PTSD reflex sympathetic dystrophy on narcotic pain medication hypothyroidism last seen for annual well visit in July 2022. Colonoscopy is up-to-date. With the reflex sympathetic dystrophy follows up 02/02/2023 on immediate release hydromorphone complains of lower 3rd of pack burning pressure right leg knee down left arm. Complains also for right shoulder right hip right ankle pain pain management concern about bone demineralization from not being able to move and smoking. Presently on hydromorphone 8 mg tablets 0.5-1.5 tablets by mouth every 3 hours p.r.n. maximum of 12 tabs per day [place] brand medically necessary 168 tablets 2 presc riptions lidocaine prescription also. Patient has also seen Orthopedics for hip and shoulder pain x-ray is requested for the pelvis diagnosis of hip flexor tendinitis advised physical therapy. X-ray results mild to moderate degenerative changes in the bilateral hips. Recently patient has had excision of the cyst on the right breast and left back these are epidermal inclusion cyst. Patient also follows up with endocrinology for the hyperparathyroidism vitamin-D deficiency and PCOS. Patient has been an array has IUD [facility] Medical History (Updated 02/23/23 @ 16:13 by Marimar Kimble MD) Rash Incisional breast wound Thyroid nodule Right distal ulnar fracture Ischemic colitis Hypercholesterolemia Tobacco abuse Overactive bladder Migraine Allergic rhinitis Primary hyperparathyroidism Hypertension GERD (gastroesophageal reflux disease) Psoriasis Polycystic ovarian disease Hypothyroidism Reflex sympathetic dystrophy Surgical History History of excision of mass (11/06/22) Hx of arthroscopy (2015) Hx of removal of cyst (2007) History of cholecystectomy (2010) History of oral surgery (2008) History of incision and drainage (2007) History of right knee surgery (2001) History of removal of cyst (1999) History of arthroscopy of right knee (1997) History of placement of ear tubes (1977) Family History Mother History of breast cancer, Onset Age: 45 Maternal Grandmother History of breast cancer, Onset Age: 60 Paternal Uncle Substance abuse Schizophrenia Paternal Grandfather Substance abuse Maternal Grandfather Substance abuse Other Mental health disorder Social History Housing: Apartment Alcohol intake: never Patient Tobacco Use Status: Current everyday Tobacco user Tobacco use type: Cigarette Cigarettes Per Day: 15 Years Smoked: 6 e-Cigarette/Vaping Use: Never Used Second Hand Smoke Exposure: No Current occupational status: unemployed Cognitive needs: No Hearing needs: No Vision needs: Yes Questionnaire Thrive Questionnaire Date Thrive assessed: 05/02/22 AUDIT C Alcohol Use Questionnaire (AUDIT-C) 1. How often do you have a drink containing alcohol?: Never 3. How often do you have six or more drinks on one occasion?: Never Total Score: 0 SHILPA-7 AMB Questionnaire SHILPA-7 Date SHILPA - 7 assessed: 05/02/22 Source: Developed by Drs. Christoph Borden, Fozia Segovia, Kota Sage and colleagues, with an educational charlotte from [employer]. Physical exam (Primary Care) Vital Signs: Last Vital Signs Pulse 82 02/23/23 16:00 BP 144/98 H 02/23/23 16:00 Pulse Ox 95 02/23/23 16:00 Oxygen Delivery Method Room Air 02/23/23 16:00 Tobacco/Smoking Status: Tobacco use Status Tobacco use date assessed 02/23/23 02/23/23 16:04 Patient Tobacco Use Status Current everyday Tobacco 02/23/23 16:04 Tobacco use type Cigarette 02/23/23 16:04 e-Cigarette/Vaping Use Never Used 02/23/23 16:04 Thrive Assessment: Date of Thrive Assessment Date Thrive assessed 05/02/22 02/23/23 16:04 Const General: alert; No acute distress Eyes Conjunctivae: conjunctivae normal Resp Auscultation: clear to auscultation bilaterally Cardio Rate: regular rate Rhythm: regular rhythm GI Inspection: Yes normal to inspection Extrem General: Yes normal to inspection and No edema Assessment and Plan Assessment & Plan (1) Reflex sympathetic dystrophy: Comment: R leg type 1, L leg type 2 s/p lateral release and medial OR 12/2001 secondary to knee weakness . arms weakness also R leg, lower back and oral , sc implant and removal 2002 problem pain R leg, L arm and perioral area 08/2020 Code(s): G90.50 - Complex regional pain syndrome I, unspecified Plan: Continue to be seen at the pain management on narcotic medication (2) Hypothyroidism: Code(s): E03.9 - Hypothyroidism, unspecified Qualifiers: Hypothyroidism type: acquired Qualified Code(s): E03.9 - Hypothyroidism, unspecified Plan: Continue with thyroid medication follows up with endocrinology (3) Hypertension: Code(s): I10 - Essential (primary) hypertension Qualifiers: Hypertension type: essential hypertension Qualified Code(s): I10 - Essential (primary) hypertension Plan: Continue with blood pressure medication. Decrease salt intake and exercise on propranolol 60 mg at bedtime (4) Tobacco abuse: Code(s): Z72.0 - Tobacco use Plan: Patient is strongly advised to stop smoking (5) Hypercholesterolemia: Code(s): E78.00 - Pure hypercholesterolemia, unspecified Plan: Avoid fried foods, chicken skin, eggs, butter margarine, pastries and meat. Be it pork or beef they have a lot of cholesterol LDL goal of less than 130 and triglyceride of less than 150 (6) PTSD (post-traumatic stress disorder): Comment: Psychotherapy [facility] from [facility] Code(s): F43.10 - Post-traumatic stress disorder, unspecified Plan: Continue with counseling and therapy (7) Hip flexor tendinitis: Code(s): M76.899 - Other specified enthesopathies of unspecified lower limb, excluding foot Plan: Patient was advised physical therapy (8) Right distal ulnar fracture: Comment: 2015 Code(s): S52.601A - Unspecified fracture of lower end of right ulna, initial encounter for closed fracture Orders: Orders XR DEXA axial skeleton Today M81.0 - Age-related osteoporosis without current pathological fracture, S52.601A - Unspecified fracture of lower end of right ulna, initial encounter for closed fracture Vitamin B12 and Folate 6 Months E78.00 - Pure hypercholesterolemia, unspecified Vitamin D 25-OH Total 6 Months E78.00 - Pure hypercholesterolemia, unspecified Lipid Panel 6 Months E78.00 - Pure hypercholesterolemia, unspecified Hemoglobin A1c 6 Months E78.00 - Pure hypercholesterolemia, unspecified Erythrocyte Sedimentation Rate 6 Months E78.00 - Pure hypercholesterolemia, unspecified Thyroid Stimulating Hormone 6 Months E78.00 - Pure hypercholesterolemia, unspecified Complete Blood Count Auto Diff 6 Months E78.00 - Pure hypercholesterolemia, unspecified Comprehensive Met. Panel 6 Months E78.00 - Pure hypercholesterolemia, unspecified Free T4 (Free Thyroxine) 6 Months E78.00 - Pure hypercholesterolemia, unspecified Medications: New fexofenadine (Hamida Allergy) 180 mg PO DAILY 30 tabs 2RF Coding Level of Care Code Est Pt Level 4 (20509) Diagnoses Reflex sympathetic dystrophy G90.50 Acquired hypothyroidism E03.9 Hypothyroidism type: acquired Essential hypertension I10 Hypertension type: essential hypertension Tobacco abuse Z72.0 Hypercholesterolemia E78.00 PTSD (post-traumatic stress disorder) F43.10 Hip flexor tendinitis M76.899 Right distal ulnar fracture S52.602P
[2023-02-23 16:00] VITALS: BP 144/98; PULSE 82; O2SAT 95
== END 2023-02-23 16:28 | disposition home or self-care (01) ==
PROVIDERS: PCP Internal Medicine; Visit Provider Internal Medicine
DX: G90.50 Complex regional pain syndrome I, unspecified (principal); E03.9 Hypothyroidism, unspecified; I10 Essential (primary) hypertension; Z72.0 Tobacco use; E78.00 Pure hypercholesterolemia, unspecified; F43.10 Post-traumatic stress disorder, unspecified; M76.899 Other specified enthesopathies of unspecified lower limb, excluding foot; S52.601A Unspecified fracture of lower end of right ulna, initial encounter for closed fracture
CPT/HCPCS: 99214

== ENCOUNTER 2023-04-01 12:49 | Outpatient (REF) | payer MEDICARE, MEDICAID, SELFPAY ==
--- NOTE | ~2023-04-01 | MM_ITS ---
EXAMINATION: BONE DENSITOMETRY CLINICAL INDICATION: Age-related osteoporosis without current pathological fracture. COMPARISON: This is the patient's baseline examination. TECHNIQUE: Using a [employer] DXA System (software version: 13.1) manufactured by [employer], dual-energy x-ray absorptiometry was performed of the lumbar spine and left hip. The images are of good technical quality. Summary results are attached. FINDINGS: LEFT FEMUR, NECK: BMD 0.984 g/cm2, Z-score -0.4, T-score -0.4, normal. LEFT FEMUR, TOTAL: BMD 0.943 g/cm2, Z-score -0.9, T-score -0.5, normal. AP SPINE L1-L4: BMD 1.469 g/cm2, Z-score 1.5, T-score 2.4, normal. IDENTIFIED RISK FACTORS: Anticonvulsant, history of fracture (adult), hyperparathyroidism, recurrent falls, current smoker. HISTORY OF FRACTURE: Wrist. MEDICATIONS: Vitamin D. MM/XR DEXA axial skeleton IMPRESSION: 1. DIAGNOSIS: Normal bone density based on the lowest T-score value of -0.5 in the total femur applying World Health Organization criteria. 2. 10-YEAR FRACTURE RISK PREDICTION, FRAX: According to the guidelines, FRAX calculation should only be performed on patients in the osteopenia bone density category. Therefore, FRAX was not performed on this patient. 3. Treatment Recommendations: NOF guidelines recommend consideration for treatment in postmenopausal women and men age 50 and older presenting with the following: -A hip or vertebral (clinical or morphometric) fracture. -T-score less than or equal to -2.5 at the femoral neck or spine after appropriate evaluation to exclude secondary causes. -Low bone mass at the hip or spine and a 10-year fracture probability by FRAX of greater than or equal to 3% for hip fracture or greater than or equal to 20% for major osteoporotic fracture based on the [place] adapted WHO algorithm. 4. Other Recommendations: All treatment decisions require clinical judgment and consideration of individual patient factors, including patient preferences, comorbidities, previous drug use, risk factors not captured in the FRAX model (e.g. frailty, falls, vitamin D deficiency, increased bone turnover, interval significant decline in bone density) and possible under or overestimation of fracture risk by FRAX. FUTURE SCAN RECOMMENDATION: People with diagnosed cases of osteoporosis or at high risk for fracture should have regular bone mineral density tests. For patients eligible for Medicare, routine testing is allowed once every 2 years. The testing frequency can be increased to one year for patients who have rapidly progressing disease, those who are receiving or discontinuing medical therapy to restore bone mass, or have additional risk factors.
== END 2023-04-01 12:50 | disposition home or self-care (01) ==
LOC: HO.MAMMO 12:49
PROVIDERS: PCP Internal Medicine; Visit Provider Internal Medicine
DX: Z13.820 Encounter for screening for osteoporosis (principal); M81.0 Age-related osteoporosis without current pathological fracture; S52.601A Unspecified fracture of lower end of right ulna, initial encounter for closed fracture
CPT/HCPCS: 77080

== ENCOUNTER 2023-05-12 10:59 | Outpatient (AMB) | payer MEDICARE, MEDICAID, SELFPAY ==
[2023-05-12 11:03] VITALS: BMI 42.0
--- NOTE | 2023-05-12 11:03 | A.OFFVIS_ITS ---
Intake Vital Signs 05/12/23 11:03 Height 5 ft 6 in Weight 260 lb BMI 42.0 Intake Visit Reasons: New Prob- Left wrist pain Intake Note: Janeth 47yr old right hand dominant female presents today for her left wrist pain. States pain is mainly in her ulnar aspect of hand/wrist. States pain started about 3.5months ago. No specific injury she can recall. Pain is triggered with twisting motion, hold a knife and fork and when applying pressure. At times she has constant numbness and on and off tingling. Reports in the last month she is dropping items more often. Allergies ketamine [KETAMINE] Allergy (Severe, Verified 05/12/23 11:08) FULL BODY MUSCLE SPASM, CONTRACTIONS, increase in pain - severe sensitivity levofloxacin [From LEVAQUIN] Allergy (Severe, Verified 05/12/23 11:08) FLU SYMPTOMS sulfamethoxazole [From BACTRIM DS] Allergy (Severe, Verified 05/12/23 11:08) FLU LIKE SYMPTOMS metoprolol [METOPROLOL] Allergy (Unknown, Verified 05/12/23 11:08) MUSCLE CONTRACTION,TREMORS Sulfa (Sulfonamide Antibiotics) [SULFA (SULFONAMIDE ANTIBIOTICS)] Allergy (Unknown, Verified 05/12/23 11:08) UNKNOWN hydrochlorothiazide Adverse Reaction (Unknown, Verified 05/12/23 11:08) Unknown From TORECAN Allergy (Unknown, Uncoded 05/12/23 11:08) UNKNOWN steri strips Adverse Reaction (Unknown, Uncoded 05/12/23 11:08) skin irritation HPI New Prob- Left wrist pain HPI Details Janeth is a 47 year old right hand dominant woman who presents with complaints of left wrist pain & ulnar-sided hand numbness. She is seen today in a wheelchair, and says she uses a walker at home. She is seen today with her mother. She complains of pain on the ulnar aspect of her left hand/wrist, worse with twisting or gripping activities, or when pressure is applied. She describes this as a tight string pulling in her wrist, traveling like a string up the ulnar forearm to the posterior aspect of the arm and posterior aspect of the armpit.. She says this has been present for ~3-4 months now, and she denies any falls. She also complains of constant numbness in her left ring & small fingers. She says she has been dropping objects in the last few months. This has been difficult for her as she uses her upper body more for weight- bearing than her lower body, including transferring to and from her wheelchair. She reports developing reflex sympathetic dystrophy (RSD) in her left upper extremity ~2014 after having a left antecubital blood draw. She says she went on to develop RSD all over her body.. She is a chronic pain patient at [facility]. Please see the pain management note from 09/11/2022 for additional information as necessary [facility] Medical History (Updated 05/12/23 @ 11:29 by Davide Juárez) Rash Incisional breast wound Thyroid nodule Right distal ulnar fracture Ischemic colitis Hypercholesterolemia Tobacco abuse Overactive bladder Migraine Allergic rhinitis Primary hyperparathyroidism Hypertension GERD (gastroesophageal reflux disease) Psoriasis Polycystic ovarian disease Hypothyroidism Reflex sympathetic dystrophy Surgical History History of excision of mass (11/06/22) Hx of arthroscopy (2015) Hx of removal of cyst (2007) History of cholecystectomy (2010) History of oral surgery (2008) History of incision and drainage (2007) History of right knee surgery (2001) History of removal of cyst (1999) History of arthroscopy of right knee (1997) History of placement of ear tubes (1977) Family History Mother History of breast cancer, Onset Age: 45 Maternal Grandmother History of breast cancer, Onset Age: 60 Paternal Uncle Substance abuse Schizophrenia Paternal Grandfather Substance abuse Maternal Grandfather Substance abuse Other Mental health disorder Social History (Updated 05/12/23 @ 11:09 by Ruma Melo [facility]) Housing: Apartment Alcohol intake: never Patient Tobacco Use Status: Current everyday Tobacco user Tobacco use type: Cigarette Cigarettes Per Day: 15 Years Smoked: 6 e-Cigarette/Vaping Use: Never Used Second Hand Smoke Exposure: No Current occupational status: unemployed Current occupation: rt hand Cognitive needs: No Hearing needs: No Vision needs: Yes Review of Systems Const All systems reviewed & are unremarkable except as noted in HPI and below Physical Exam Vital Signs: BMI result Body Mass Index 42.0 Const General: cooperative, healthy appearing and no acute distress Orientation/consciousness: patient oriented x3 HEENT Head: Yes normocephalic and Yes atraumatic Eyes EOM: EOMs intact bilaterally Resp Effort & Inspection: normal respiratory effort and able to speak in complete sentences Cardio Jugular venous distension: no JVD Skin General skin exam: turgor normal Rashes: no rashes Neuro General: patient oriented x3 Extrem Other: Evaluation of Left Upper Extremity: The patient is alert, oriented, and in no acute distress She is edentulous. She is seen in a wheelchair. Her mother is in attendance. Neuro: Normal sensation in the median nerve distribution, decreased sensation in the ulnar nerve distribution of her left hand No thenar or intrinsic wasting Good APB muscle belly firing and good finger cross Vascular: Cap refill brisk ROM: She can make a fist and extend all of her digits. Full and painless prono-supination She demonstrates ulnar-sided wrist pain that she says then migrates up the ulnar aspect of her forearm and then the posterior aspect of her arm to posterior to her armpit. She was not particularly tender over the distal radius DRUJ or distal ulna. The DRUJ was stable. She was most tender to palpation over the dorsal aspect of the 5th CMC joint in the area of the ECU insertion. She also had some mild tenderness over the dorsal aspect of the hamate. Not particularly tender over the fovea or distal ulna. No ECU subluxation with prono-supination When bring her wrist into active extension she expressed that she had some pain in the ulnar aspect of her hand in the area of the ECU insertion. Of interest, on the right forearm she has a longitudinal surgical scar over the distal ulnar shaft where she reports she had a wrist arthroscopy and shortening of the ulna with Dr. Scott some years ago. She had no complaints of right upper extremity pain today. Skin: No lacerations or abrasions. General: No swelling or Ecchymosis. No Erythema or evidence of infection. Psych Appearance: grossly normal Affect: normal affect Attitude: cooperative Assessment & Plan Assessment & Plan (1) Numbness and tingling in left hand: Code(s): R20.0 - Anesthesia of skin; R20.2 - Paresthesia of skin (2) Reflex sympathetic dystrophy: Comment: R leg type 1, L leg type 2 s/p lateral release and medial OR 12/2001 secondary to knee weakness . arms weakness also R leg, lower back and oral , sc implant and removal 2002 problem pain R leg, L arm and perioral area 08/2020 Code(s): G90.50 - Complex regional pain syndrome I, unspecified (3) Left hand pain: Code(s): M79.642 - Pain in left hand (4) Left wrist pain: Code(s): M25.532 - Pain in left wrist Plan Assessment & Plan: 1. Left ulnar-sided hand & wrist pain Most tender to palpation over the ECU insertion at the dorsal base of the 5th metacarpal No DRUJ tenderness or instability. No foveal tenderness. No ECU tendon instability. 2. Left hand numbness In the ulnar nerve distribution Symptoms somewhat intermittent, though she also reports a constant see about it. She had dense numbness in the ulnar nerve distribution today in clinic. Good finger cross no intrinsic wasting I educated her on carpal & cubital tunnel syndrome I ordered a NCS to assess for peripheral nerve compression She will follow up when completed for review 3. History of RSD, and chronic pain Affecting multiple locations, including her LUE Patient claims this developed from a blood draw in ~2014. Patient with significant chronic pain issues being managed by the [facility] pain management team. Please see pain management note from 09/11/2022 for additional information as necessary Scribed for Lizbet Alejandro MD by Davide Juárez, medical care manager, on 05/12/23 at 11:24 AM, EST. Coding Level of Care Code New Pt Level 3 (12886) Diagnoses Numbness and tingling in left hand R20.0; R20.2 Reflex sympathetic dystrophy G90.50 Left hand pain M79.642 Left wrist pain M25.532
== END 2023-05-12 11:23 | disposition home or self-care (01) ==
PROVIDERS: PCP Internal Medicine; Visit Provider Orthopaedic Surgery
DX: M25.532 Pain in left wrist (principal); M79.642 Pain in left hand; G90.50 Complex regional pain syndrome I, unspecified
CPT/HCPCS: 99203

== ENCOUNTER → 2023-05-12 10:59 | Outpatient (BNVA) | payer MEDICARE, MEDICAID, SELFPAY | PROVIDERS: PCP Internal Medicine; Visit Provider Orthopaedic Surgery | DX: M79.642 Pain in left hand (principal); M25.532 Pain in left wrist; G90.50 Complex regional pain syndrome I, unspecified; R20.0 Anesthesia of skin; R20.2 Paresthesia of skin | CPT/HCPCS: 99202 ==

== ENCOUNTER 2023-06-08 11:03 | Outpatient (AMB) | payer MEDICARE, MEDICAID, SELFPAY ==
--- NOTE | 2023-06-08 11:48 | AM.OFFWIN_ITS ---
Intake Vital Signs 06/08/23 11:49 Height 5 ft 6 in BP 136/80 Blood Pressure Location Rt brachial Position Sitting Pulse 104 H Pulse Source Pulse Oximeter Temp 98.5 F Temp Source Oral Pulse Oximetry (%) 99 Oxygen Delivery Method Room Air Intake Visit Reasons: EST/ pain right side of back (lobby) Intake Note: pt is here today for pain rt side of back Patient Tobacco Use Status: Current everyday Tobacco user Allergies ketamine [KETAMINE] Allergy (Severe, Verified 05/12/23 11:08) FULL BODY MUSCLE SPASM, CONTRACTIONS, increase in pain - severe sensitivity levofloxacin [From LEVAQUIN] Allergy (Severe, Verified 05/12/23 11:08) FLU SYMPTOMS sulfamethoxazole [From BACTRIM DS] Allergy (Severe, Verified 05/12/23 11:08) FLU LIKE SYMPTOMS metoprolol [METOPROLOL] Allergy (Unknown, Verified 05/12/23 11:08) MUSCLE CONTRACTION,TREMORS Sulfa (Sulfonamide Antibiotics) [SULFA (SULFONAMIDE ANTIBIOTICS)] Allergy (Unknown, Verified 05/12/23 11:08) UNKNOWN hydrochlorothiazide Adverse Reaction (Unknown, Verified 05/12/23 11:08) Unknown From TORECAN Allergy (Unknown, Uncoded 05/12/23 11:08) UNKNOWN steri strips Adverse Reaction (Unknown, Uncoded 05/12/23 11:08) skin irritation HPI HPI Comments History of Present Illness Details 47-year-old female presents today compla ining of dysuria and right flank pain over the last couple of days. Does not have a past medical history of renal calculi. Denies any change in her bowel movements such as diarrhea constipation. She does compare pain to similar symptoms when she had cholecystitis. [facility] Medical History (Updated 06/08/23 @ 12:23 by NATHANIEL Renteria) Rash Incisional breast wound Thyroid nodule Right distal ulnar fracture Ischemic colitis Hypercholesterolemia Tobacco abuse Overactive bladder Migraine Allergic rhinitis Primary hyperparathyroidism Hypertension GERD (gastroesophageal reflux disease) Psoriasis Polycystic ovarian disease Hypothyroidism Reflex sympathetic dystrophy Surgical History History of excision of mass (11/06/22) Hx of arthroscopy (2015) Hx of removal of cyst (2007) History of cholecystectomy (2010) History of oral surgery (2008) History of incision and drainage (2007) History of right knee surgery (2001) History of removal of cyst (1999) History of arthroscopy of right knee (1997) History of placement of ear tubes (1977) Family History Mother History of breast cancer, Onset Age: 45 Maternal Grandmother History of breast cancer, Onset Age: 60 Paternal Uncle Substance abuse Schizophrenia Paternal Grandfather Substance abuse Maternal Grandfather Substance abuse Other Mental health disorder Social History (Updated 05/12/23 @ 11:09 by SOBEIDA Haddad) Housing: Apartment Alcohol intake: never Patient Tobacco Use Status: Current everyday Tobacco user Tobacco use type: Cigarette Cigarettes Per Day: 15 Years Smoked: 6 e-Cigarette/Vaping Use: Never Used Second Hand Smoke Exposure: No Current occupational status: unemployed Current occupation: rt hand Cognitive needs: No Hearing needs: No Vision needs: Yes Review of Systems Const All systems reviewed & are unremarkable except as noted in HPI and below Physical Exam Vital Signs: Last Vital Signs Temp 98.5 F 06/08/23 11:49 Pulse 104 H 06/08/23 11:49 BP 136/80 06/08/23 11:49 Pulse Ox 99 06/08/23 11:49 Oxygen Delivery Method Room Air 06/08/23 11:49 HEENT Head: Yes normal to inspection, Yes normocephalic and Yes atraumatic Ears: external ears normal and TM's normal bilaterally General nose exam: Normal external nose present GI Palpation (GI): Soft to palpation and Tenderness to palpation present (GI) in the RUQ Auscultation: normal bowel sounds General: Yes CVA tenderness on the right Back/Spine/Pelvis Back: CVA tenderness Results AMB Urinalysis, Automated UA Leukoctes 0 Otf/uL Last Edit by SOBEIDA Rivera on 06/08/23 12:15 UA Nitrite Negative Last Edit by SOBEIDA Rivera on 06/08/23 12:15 UA Urobilinogen 0.2 mg/dL Last Edit by SOBEIDA Rivera on 06/08/23 12:15 UA Protein 0 mg/dL Last Edit by SOBEIDA Rivera on 06/08/23 12:15 UA pH 6.0 Last Edit by SOBEIDA Rivera on 06/08/23 12:15 UA Blood 0 Maxx/uL Last Edit by SOBEIDA Rivera on 06/08/23 12:15 UA Specific [place] 1.015 Last Edit by Anitha Gallagher [facility] on 06/08/23 12:15 UA Ketone Negative Last Edit by Anitha Gallagher [facility] on 06/08/23 12:15 UA Bilirubin 0 mg/dL Last Edit by Anitha Gallagher [facility] on 06/08/23 12:15 UA Glucose 0 mg/dL Last Edit by Anitha Gallagher [facility] on 06/08/23 12:15 Results Reviewed Results Reviewed: Laboratory Last Values Urine pH (Auto) 6.0 06/08/23 12:14 Specific [place] (Auto) 1.015 06/08/23 12:14 Urine Protein (Auto) 0 mg/dL 06/08/23 12:14 Glucose (UA)(Auto) 0 mg/dL 06/08/23 12:14 Urine Ketones (Auto) Negative 06/08/23 12:14 Urine Blood (Auto) 0 Maxx/uL 06/08/23 12:14 Urine Nitrite (Auto) Negative 06/08/23 12:14 Urine Bilirubin (Auto) 0 mg/dL 06/08/23 12:14 Urine Urobilinogen (Auto) 0.2 mg/dL 06/08/23 12:14 Leukocyte Esterase (Auto) 0 Otf/uL 06/08/23 12:14 I did discuss the unremarkable results of the urinalysis. Her symptoms are quite suspicious of UTI however. Assessment & Plan Assessment & Plan (1) Dysuria: Code(s): R30.0 - Dysuria Plan: The patient will start cephalexin until the results of the urine culture. Any increasing abdominal pain she should go to the emergency room. Orders: Orders AMB Urinalysis Automated Today Z13.9 - Encounter for screening, unspecified Urine Culture Today R30.0 - Dysuria Medications: New cephalexin 500 mg PO BID 7 days 14 caps 0RF Coding Level of Care Code Est Pt Level 3 (21298) Diagnoses Dysuria R30.0 Time Spent (min) 20
[2023-06-08 11:49] VITALS: BP 136/80; PULSE 104; TEMP 36.9; O2SAT 99
== END 2023-06-08 12:56 | disposition home or self-care (01) ==
PROVIDERS: PCP Internal Medicine; Visit Provider Physician Assistant Medical
DX: R30.0 Dysuria (principal)
CPT/HCPCS: 81003; 99213

== ENCOUNTER 2023-06-08 13:05 | Emergency (ER) | payer MEDICARE, MEDICAID, SELFPAY ==
--- NOTE | ~2023-06-08 | CT_ITS ---
EXAMINATION: CT ABDOMEN AND PELVIS WITHOUT CONTRAST CLINICAL INFORMATION: Right flank pain, urinary frequency and urinary retention. COMPARISON: Renal ultrasound 03/11/2018, CT abdomen pelvis 01/15/2015 TECHNIQUE: Multidetector volumetric imaging was performed from the superior aspect of the liver through the pubic symphysis. Sagittal and coronal reformatted images were obtained on the technologist's workstation. This CT examination was performed using dose optimization techniques as appropriate, variously including the following: *Automated exposure control *Adjustment of mA and/or kV according to patient size (this includes techniques or standardized protocols for targeted exams where dose is matched to indication/reason for exam; i.e. extremities or head) *Use of iterative reconstruction technique DLP: 916 mGy-cm FINDINGS: LUNG BASES: The visualized lung bases are unremarkable. LIVER, GALLBLADDER, AND BILIARY TREE: The liver is enlarged at 19.8 cm in cephalocaudad dimension with decreased attenuation consistent with hepatic steatosis. No focal hepatic lesion or biliary ductal dilatation is present. Status post cholecystectomy. PANCREAS: Unremarkable. SPLEEN: Spleen is enlarged at 15.2 cm in greatest length. ADRENAL GLANDS: Unremarkable. KIDNEYS AND URETERS: The kidneys are normal in size, shape, and attenuation. No hydronephrosis, hydroureter, or calculi seen. No perinephric stranding. BLADDER: Unremarkable. GASTROINTESTINAL TRACT: The small and large bowel are unremarkable. The appendix is unremarkable. ABDOMINAL WALL: No significant hernia is appreciated. LYMPH NODES: Normal. VASCULAR: Unremarkable. PELVIC VISCERA: The uterus and adnexa are unremarkable. An IUD is present in good position in the endometrial canal. OSSEOUS STRUCTURES: Unremarkable. CT/CT abdomen pelvis wo IV con IMPRESSION: 1. A cause for the patient's right flank pain, urinary frequency and urinary retention has not been found. 2. Incidental note made of an enlarged fatty liver and splenomegaly. Fleischner guidelines were followed.
[2023-06-08 13:36] VITALS: BP 149/102; PULSE 100; RESP 19; TEMP 36.6; O2SAT 99; BMI 42.0
[2023-06-08 14:04] LABS: MANUAL DIFF FLAG NO
[2023-06-08 14:06] LABS: Basophils Absolute Auto 0.1 X10*3/uL (0.0-0.2); Basophils Percent Auto 0.6 % (0-2); Eosinophils Absolute Auto 0.2 X10*3/uL (0.0-0.4); Eosinophils Percent Auto 1.9 % (0-4); Hematocrit 44.5 % (37.0-47.0); Hemoglobin 15.2 g/dl (12.0-16.0); Imm Gran Abs Auto 0.02 X10*3/uL (0.00-0.03); Imm Gran Pct Auto 0.2 % (0.0-0.4); Lymphocytes Absolute Auto 2.5 X10*3/uL (1.2-4.9); Lymphocytes Percent Auto 27.7 % (20-40); Mean Corpuscular HGB Conc 34.2 g/dl (31.0-35.0); Mean Corpuscular Hemoglobin 29.5 pg (27.0-33.0); Mean Corpuscular Volume 86.4 fL (80.0-98.0); Mean Platelet Volume 9.1 fL (9.4-12.3); Monocytes Absolute Auto 0.3 X10*3/uL (0.1-1.2); Monocytes Percent Auto 3.4 % (2-11); Neutrophils Percent Auto 66.2 % (45-73); Platelet Count 287 X10*3/uL (160-400); Red Blood Count 5.15 X10*6/uL (4.20-5.50); Red Cell Distribution Width 12.1 % (11.0-16.0)
[2023-06-08 14:25] LABS: Alanine Aminotransferase 31 U/L (0-31); Albumin Level 4.4 g/dL (3.5-5.0); Alkaline Phosphatase 106 U/L (39-117); Anion Gap 12 (12-20); Aspartate Amino Transferase 23 U/L (5-31); Bilirubin Direct 0.2 mg/dL (0.0-0.5); Bilirubin Total 0.5 mg/dL (0.0-1.0); Blood Urea Nitrogen 5 mg/dL (9-16); Calcium 10.1 mg/dL (8.4-10.2); Carbon Dioxide 28 mmol/L (22-29); Chloride 102 mmol/L (96-108); Creatinine Clr Calc Pharmacy 99.8; Estimated Glomerular Filt Rate > 60; Glucose Random 105 mg/dL (60-115); Lipase 20 U/L (8-78); Potassium 4.2 mmol/L (3.3-5.1); Sodium 138 mmol/L (135-145); Total Protein 8.1 g/dL (6.5-8.0)
[2023-06-08 16:00] VITALS: BP 153/107; PULSE 100; RESP 18; TEMP 36.2; O2SAT 99
--- NOTE | 2023-06-08 16:02 | ED.ABDPAIN ---
HPI - Abdominal Pain General Chief Complaint: Abdominal Pain Stated Complaint: Appendicitis? Time Seen by Provider: 06/08/23 18:57 Source: patient and family Mode of arrival: ambulatory Limitations: no limitations History of Present Illness HPI narrative: Patient with chronic pain syndrome who presents with flank pain today MD elicited complaint: flank pain Onset (ago): hour(s) Pain Consistency: constant Location: R flank Quality: stabbing Migration to: no migration Related Data Home Medications ?Medication ?Instructions ?Recorded ?Confirmed meclizine 25 mg tablet 25 mg PO BID 05/29/20 07/27/23 naratriptan 2.5 mg tablet (Amerge) See Rx Instructions PO .COMPLEX 05/29/20 07/27/23 oxycodone 20 mg tablet,crush 20 mg PO TID PRN 07/27/23 07/27/23 resistant,extended release 12 hr oxycodone 30 mg tablet 30 mg PO .q2 HOURS PRN 07/27/23 07/27/23 Previous Rx's ?Medication ?Instructions ?Recorded blood pressure monitor #1 ea 05/17/21 folic acid 1 mg tablet 1 mg PO DAILY 90 days #90 tabs 04/08/23 amlodipine 10 mg tablet (Norvasc) 10 mg PO DAILY #90 tabs 05/06/23 sertraline 25 mg tablet 12.5 mg (1/2 x 25 mg) PO DAILY 90 07/05/23 days #45 tabs cholecalciferol (vitamin D3) 1,250 1,250 mcg PO QWEEK 90 days #13 caps 07/27/23 mcg (50,000 unit) capsule montelukast 10 mg tablet 10 mg PO BEDTIME #90 tabs 09/30/23 levothyroxine 112 mcg tablet 112 mcg PO DAILY 90 days #90 tabs 10/07/23 levothyroxine 125 mcg tablet 125 mcg PO DAILY #90 tabs 10/07/23 amitriptyline 25 mg tablet 25 mg PO BEDTIME 90 days #90 tabs 11/10/23 acetic acid 2 % ear solution 3 drp otic (ears) TID #15 mL 12/15/23 propranolol 60 mg capsule,24 60 mg PO BEDTIME #90 caps 12/23/23 hr,extended release Allergies Allergy/AdvReac Type Severity Reaction Status Date / Time ketamine [KETAMINE] Allergy Severe FULL BODY Verified 12/14/23 13:27 MUSCLE SPASM, CONTRACTIONS, increase in pain - severe sensitivity levofloxacin [From LEVAQUIN] Allergy Severe FLU Verified 12/14/23 13:27 SYMPTOMS sulfamethoxazole Allergy Severe FLU LIKE Verified 12/14/23 13:27 [From BACTRIM DS] SYMPTOMS metoprolol [METOPROLOL] Allergy Unknown MUSCLE Verified 12/14/23 13:27 CONTRACTION,TREMORS Sulfa (Sulfonamide Allergy Unknown UNKNOWN Verified 12/14/23 13:27 Antibiotics) [SULFA (SULFONAMIDE ANTIBIOTICS)] hydrochlorothiazide AdvReac Unknown Unknown Verified 12/14/23 13:27 From TORECAN Allergy Unknown UNKNOWN Uncoded 12/14/23 13:27 steri strips AdvReac Unknown skin Uncoded 12/14/23 13:27 irritation Review of Systems Review of Systems Yes all other systems are reviewed and are negative Denies Sensory deficit (Neuro) [facility] Past Medical History Medical History (Updated 12/14/23 @ 13:49 by Marimar Kimble MD) GERD (gastroesophageal reflux disease) Rash Incisional breast wound Thyroid nodule Right distal ulnar fracture Ischemic colitis Hypercholesterolemia Tobacco abuse Overactive bladder Migraine Allergic rhinitis Primary hyperparathyroidism Hypertension Psoriasis Polycystic ovarian disease Hypothyroidism Reflex sympathetic dystrophy Surgical History History of excision of mass (11/06/22) Hx of arthroscopy (2015) Hx of removal of cyst (2007) History of cholecystectomy (2010) History of oral surgery (2008) History of incision and drainage (2007) History of right knee surgery (2001) History of removal of cyst (1999) History of arthroscopy of right knee (1997) History of placement of ear tubes (1977) Family History Family History Mother History of breast cancer, Onset Age: 45 Maternal Grandmother History of breast cancer, Onset Age: 60 Paternal Uncle Substance abuse Schizophrenia Paternal Grandfather Substance abuse Maternal Grandfather Substance abuse Other Mental health disorder Social History Social History Housing: Apartment Alcohol intake: never Patient Tobacco Use Status: Current everyday Tobacco user Tobacco use type: Cigarette Cigarettes Per Day: 15 Years Smoked: 6 e-Cigarette/Vaping Use: Never Used Second Hand Smoke Exposure: No Current occupational status: unemployed Current occupation: rt hand Cognitive needs: No Hearing needs: No Vision needs: Yes Physical Exam ED Vital Signs: Vital Signs - 24 hr 06/08/23 13:36 06/08/23 16:00 Temperature 98 F 97.1 F Pulse Rate 100 100 Respiratory Rate 19 18 Blood Pressure 149/102 H 153/107 H Pulse Oximetry 99 99 Oxygen Delivery Method Room Air Room Air BMI result Body Mass Index 42.0 Const Other: obese female looking older than stated age Nutritional Appearance: average body habitus Orientation/consciousness: oriented to person and patient oriented x3 Limitations: no limitations HENMT Head: Yes normal to inspection Ears: external ears normal General nose exam: Normal external nose present Mouth: Normal oral and palatal mucosa present and oropharynx normal Throat: Yes posterior oropharynx normal Eyes General: appearance normal, both eyes and all related structures Neck Neck: Yes normal visual inspection Chest Chest palpation & inspection: normal inspection of the chest Resp Auscultation: clear to auscultation bilaterally Cardio Jugular venous distension: no JVD Rate: regular rate Rhythm: regular rhythm Heart sounds: S1 normal heart sound present and S2 normal heart sound present GI Inspection: Yes normal to inspection Palpation (GI): Soft to palpation, nontender and No hepatosplenomegaly present Auscultation: normal bowel sounds Back/Spine/Pelvis Other: mild right CVAT Skin General skin exam: no rashes or lesions noted Neuro General: oriented to person and patient oriented x3 Cranial nerves: Yes CN's II-XII intact bilaterally Motor exam (neuro): 5/5 motor strength present throughout Sensory Exam: No Sensory deficit (Neuro) Extrem General: Yes normal to inspection Psych Appearance: grossly normal Course Course Course Narrative: RME-16PM - 47-year-old female presenting to the ER with complaints of right flank pain that started this morning. She reports there is a family history of kidney stones. She reports a history cholecystectomy. She reports she has never had this in the past although feels like it did when she had gallstones. She reports that she is having back pain to the right side. She reports urinary frequency although decreased urine output. She denies any fevers, chills, chest pain or shortness of breath, nausea vomiting, dysuria. Plan: Patient had already had labs obtained therefore added urine . Her UA from outpatient was within normal limits. Therefore CT scan abdomen pelvis without IV contrast ordered due to possible kidney stones. Patient will be sent back to the waiting room to be evaluated the ED. Reevaluation(s) Reevaluation #1: labs normal, UA negative, CT negative for hydro will treat for muscular pain Time: 20:04 Medical Decision Making Differential Diagnosis Differential Diagnoses: The differential diagnosis associated with the presentation includes (renal colic, pyelonephritis, UTI, appendicitis were all considered) Admission/Observation Consideration of admission/observation: Escalation of care including admission/observation considered (upon arrival patient considered for admisssion) Lab Data 06/08/23 13:50 06/08/23 13:50 Labs: Lab Results 06/08/23 06/08/23 Range/Units 11:03 13:50 WBC 9.0 (4.8-10.8) X10*3/uL RBC 5.15 (4.20-5.50) X10*6/uL Hgb 15.2 (12.0-16.0) g/dl Hct 44.5 (37.0-47.0) % MCV 86.4 (80.0-98.0) fL MCH 29.5 (27.0-33.0) pg MCHC 34.2 (31.0-35.0) g/dl RDW 12.1 (11.0-16.0) % Plt Count 287 (160-400) X10*3/uL MPV 9.1 L (9.4-12.3) fL Immature Gran % (Auto) 0.2 (0.0-0.4) % Neut % (Auto) 66.2 (45-73) % Lymph % (Auto) 27.7 (20-40) % Williamson % (Auto) 3.4 (2-11) % Eos % (Auto) 1.9 (0-4) % Baso % (Auto) 0.6 (0-2) % Lymph # (Auto) 2.5 (1.2-4.9) X10*3/uL Williamson # (Auto) 0.3 (0.1-1.2) X10*3/uL Eos # (Auto) 0.2 (0.0-0.4) X10*3/uL Baso # (Auto) 0.1 (0.0-0.2) X10*3/uL Abs Immat Gran (auto) 0.02 (0.00-0.03) X10*3/uL Absolute Neuts (auto) 6.0 (2.0-8.3) x10*3/uL Absolute Nucleated RBC 0.000 (0.0-0.012) X10*3/uL Nucleated RBC % (auto) 0.0 (0.0-0.2) /100WBC Sodium 138 (135-145) mmol/L Potassium 4.2 (3.3-5.1) mmol/L Chloride 102 (96-108) mmol/L Carbon Dioxide 28 (22-29) mmol/L Anion Gap 12 (12-20) BUN 5 L (9-16) mg/dL Creatinine 0.90 (0.5-1.4) mg/dL Estim Creat Clear Calc 99.8 Estimated GFR > 60 Random Glucose 105 (60-115) mg/dL Calcium 10.1 (8.4-10.2) mg/dL Magnesium 2.0 (1.6-2.6) mg/dL Total Bilirubin 0.5 (0.0-1.0) mg/dL Direct Bilirubin 0.2 (0.0-0.5) mg/dL AST 23 (5-31) U/L ALT 31 (0-31) U/L Alkaline Phosphatase 106 (39-117) U/L Total Protein 8.1 H (6.5-8.0) g/dL Albumin 4.4 (3.5-5.0) g/dL Lipase 20 (8-78) U/L Urine Color Yellow Urine Appearance Clear Urine pH 6.0 (5.0-9.0) Ur Specific [place] 1.010 (1.005-1.025) Urine Protein Negative (Neg-Trace) mg/dL Urine Glucose (UA) Negative (Negative) mg/dL Urine Ketones Negative (Negative) mg/dL Urine Blood Negative (Negative) Urine Nitrite Negative (Negative) Ur Leukocyte Esterase Trace H (Negative) Urine RBC 0-2 (0-2) /HPF Urine WBC 0-5 (0-5) /HPF Ur Squamous Epith Cells 0-2 (0-2) /HPF Urine Bacteria None Seen (None Seen) Hyaline Casts 0-2 (0-2) /LPF Urine Test NEGATIVE (NEGATIVE) Independent Interpretation I performed an independent interpretation of an: CT Scan (no hydro) Radiology Impression Discussion of test interpretation with radiology: I have reviewed the radiologist's reading. Independent Historian Clinical information obtained from an independent historian. History obtained from or confirmed by: Parent Prescription Management I considered prescription management with: Antibiotic (no infection seen so no abx given) Chronic Conditions Patient?s care impacted by: Hypertension and Other (obesity) Medications Administered Discontinued Medications Generic Name Dose Route Start Last Admin Trade Name Freq PRN Reason Stop Dose Admin Ketorolac Tromethamine 60 mg 06/08/23 19:18 06/08/23 19:26 Ketorolac Tromethamine 60 Mg/2 Ml Vial IM 06/08/23 19:19 60 mg ONCE ONE Administration Discharge Plan Discharge Clinical Impression: Back pain Patient Disposition: Home, Self-Care Instructions: Back Pain (ED) Prescriptions: No Action folic acid 1 mg tablet 1 mg PO DAILY 90 Days Qty: 90 3RF amlodipine [Norvasc] 10 mg tablet 10 mg PO DAILY Qty: 90 3RF sertraline 25 mg tablet 12.5 mg PO DAILY 90 Days Qty: 45 2RF montelukast 10 mg tablet 10 mg PO BEDTIME Qty: 90 1RF levothyroxine 112 mcg tablet 112 mcg PO DAILY 90 Days Qty: 90 2RF levothyroxine 125 mcg tablet 125 mcg PO DAILY Qty: 90 1RF amitriptyline 25 mg tablet 25 mg PO BEDTIME 90 Days Qty: 90 1RF acetic acid 2 % solution 3 drp otic (ears) TID Qty: 15 0RF propranolol 60 mg capsule,extended release 24 hr 60 mg PO BEDTIME Qty: 90 2RF (DME) blood pressure monitor Kit See Rx Instructions .Route Qty: 1 0RF Rx Instructions: As directed oxycodone 30 mg tablet 30 mg PO .q2 HOURS PRN Patient Comments: UPTO 7 A DAY oxycodone 20 mg tablet,oral only,ext.rel.12 hr 20 mg PO TID PRN cholecalciferol (vitamin D3) 1,250 mcg (50,000 unit) capsule 1,250 mcg PO QWEEK 90 Days Qty: 13 2RF meclizine 25 mg tablet 25 mg PO BID naratriptan [Amerge] 2.5 mg tablet See Rx Instructions PO .COMPLEX Rx Instructions: take 1 tab at onset of headache; if no relief may repeat 1 tab after at least 4 hrs; max = 2 tabs/24 hrs PO Referrals: Marimar Kimble MD [Primary Care Provider] - 5 days Interventions: ED Discharge Assessment Last Done: 06/08/23 20:49 Discharge Date/Time: 06/08/23 20:50 Print Language: Syriac
[2023-06-08 16:59] LABS: UPreg QC Valid YES; Urine Pregnancy NEGATIVE (NEGATIVE)
[2023-06-08] MEDS: Ketorolac Tromethamine 60 MG/2 ML VIAL IM (19:26)
[2023-06-08 19:35] LABS: Appearance Urine Clear; Color Urine Yellow; Glucose Urine UA Negative (Negative); Leukocyte Esterase Urine Trace (Negative); Nitrite Urine Negative (Negative); UMIC TRIGGER UACC YES; Urine Blood Negative (Negative); Urine Ketones Negative (Negative); Urine Protein Negative (Neg-Trace)
[2023-06-08 19:42] LABS: Bacteria Urine None Seen (None Seen); Hyaline Casts Urine 0-2 /LPF (0-2); RBC Urine 0-2 /HPF (0-2); Squamous Epithelial Cell Urine 0-2 /HPF (0-2); WBC Urine 0-5 /HPF (0-5)
[2023-06-08 20:48] VITALS: BP 139/78; PULSE 104; RESP 18; TEMP 37.1; O2SAT 98
== END 2023-06-08 20:50 | disposition home or self-care (01) ==
PROVIDERS: Physician Assistant Medical; Emergency Provider Emergency Medicine; PCP Internal Medicine
DX: M54.9 Dorsalgia, unspecified (principal); I10 Essential (primary) hypertension; Z90.49 Acquired absence of other specified parts of digestive tract
CPT/HCPCS: 36415; 74176; 80048; 80076; 81001; 81025; 83690; 83735; 85025; 87086; 96372; 99284; J1885

== ENCOUNTER 2023-06-08 15:59 | Outpatient (REF) | payer MEDICARE, MEDICAID, SELFPAY | END 2023-06-08 16:00 | disposition home or self-care (01) | LOC: HO.LNP 15:59 | PROVIDERS: Visit Provider Physician Assistant Medical | DX: Z13.89 Encounter for screening for other disorder (principal) | CPT/HCPCS: 87086 ==

== ENCOUNTER 2023-06-12 11:00 | Outpatient (AMB) | payer MEDICARE, MEDICAID, SELFPAY ==
[2023-06-12 11:14] VITALS: BP 136/94; PULSE 73; O2SAT 97; BMI 41.6
--- NOTE | 2023-06-12 11:14 | A.OFFPC_ITS ---
Vital Signs 06/12/23 11:14 Height 5 ft 6 in Weight 257 lb 15.053 oz BMI 41.6 BP 136/94 H Blood Pressure Location Lt brachial Position Sitting Pulse 73 Pulse Source Pulse Oximeter Pulse Oximetry (%) 97 Oxygen Delivery Method Room Air Intake Visit Reasons: Abdomen Pain Demand Inspector Required: No Allergies ketamine [KETAMINE] Allergy (Severe, Verified 06/12/23 11:18) FULL BODY MUSCLE SPASM, CONTRACTIONS, increase in pain - severe sensitivity levofloxacin [From LEVAQUIN] Allergy (Severe, Verified 06/12/23 11:18) FLU SYMPTOMS sulfamethoxazole [From BACTRIM DS] Allergy (Severe, Verified 06/12/23 11:18) FLU LIKE SYMPTOMS metoprolol [METOPROLOL] Allergy (Unknown, Verified 06/12/23 11:18) MUSCLE CONTRACTION,TREMORS Sulfa (Sulfonamide Antibiotics) [SULFA (SULFONAMIDE ANTIBIOTICS)] Allergy (Unknown, Verified 06/12/23 11:18) UNKNOWN hydrochlorothiazide Adverse Reaction (Unknown, Verified 06/12/23 11:18) Unknown From TORECAN Allergy (Unknown, Uncoded 06/12/23 11:18) UNKNOWN steri strips Adverse Reaction (Unknown, Uncoded 06/12/23 11:18) skin irritation Tobacco use date assessed: 06/12/23 HPI Abdomen Pain HPI Details 47-year-old obese female smoker with a h istory of reflex sympathetic dystrophy on narcotic pain medication hypertension hypothyroidism hypercholesterolemia PTSD coming in for follow-up. Last seen in February 2023 ER visit recently having abdominal pain no actions done. CT scan done showing fatty liver splenomegaly. PAtient continues to have pain on the R flank to the sub costal area deny fall or trauma- she is on narcotic painmed [facility] Medical History Rash Incisional breast wound Thyroid nodule Right distal ulnar fracture Ischemic colitis Hypercholesterolemia Tobacco abuse Overactive bladder Migraine Allergic rhinitis Primary hyperparathyroidism Hypertension GERD (gastroesophageal reflux disease) Psoriasis Polycystic ovarian disease Hypothyroidism Reflex sympathetic dystrophy Surgical History History of excision of mass (11/06/22) Hx of arthroscopy (2015) Hx of removal of cyst (2007) History of cholecystectomy (2010) History of oral surgery (2008) History of incision and drainage (2007) History of right knee surgery (2001) History of removal of cyst (1999) History of arthroscopy of right knee (1997) History of placement of ear tubes (1977) Family History Mother History of breast cancer, Onset Age: 45 Maternal Grandmother History of breast cancer, Onset Age: 60 Paternal Uncle Substance abuse Schizophrenia Paternal Grandfather Substance abuse Maternal Grandfather Substance abuse Other Mental health disorder Social History Housing: Apartment Alcohol intake: never Patient Tobacco Use Status: Current everyday Tobacco user Tobacco use type: Cigarette Cigarettes Per Day: 15 Years Smoked: 6 e-Cigarette/Vaping Use: Never Used Second Hand Smoke Exposure: No Current occupational status: unemployed Current occupation: rt hand Cognitive needs: No Hearing needs: No Vision needs: Yes Questionnaire Thrive Questionnaire Date Thrive assessed: 05/02/22 AUDIT C Alcohol Use Questionnaire (AUDIT-C) 1. How often do you have a drink containing alcohol?: Never 3. How often do you have six or more drinks on one occasion?: Never Total Score: 0 SHILPA-7 AMB Questionnaire SHILPA-7 Date SHILPA - 7 assessed: 05/02/22 Source: Developed by Drs. Christoph Borden, Fozia Segovia, Kota Sage and colleagues, with an educational charlotte from [employer]. Physical exam (Primary Care) Vital Signs: Last Vital Signs Pulse 73 06/12/23 11:14 BP 136/94 H 06/12/23 11:14 Pulse Ox 97 06/12/23 11:14 Oxygen Delivery Method Room Air 06/12/23 11:14 BMI result Body Mass Index 41.6 Tobacco/Smoking Status: Tobacco use Status Tobacco use date assessed 06/12/23 06/12/23 11:21 Patient Tobacco Use Status Current everyday Tobacco 06/12/23 11:21 Tobacco use type Cigarette 06/12/23 11:21 e-Cigarette/Vaping Use Never Used 06/12/23 11:21 Thrive Assessment: Date of Thrive Assessment Date Thrive assessed 05/02/22 06/12/23 11:21 Other: Tender on the right flank towards the subcostal margin but no swelling no re dness noted. Assessment and Plan Assessment & Plan (1) Right flank pain: Code(s): R10.9 - Unspecified abdominal pain Plan: CT scan has revealed negative results except for an incidental finding of fatty liver.. Will do an ultrasound of the kidney (2) Frequency of micturition: Code(s): R35.0 - Frequency of micturition Plan: Ultrasound of the bladder requested (3) Hepatic steatosis: Code(s): K76.0 - Fatty (change of) liver, not elsewhere classified Plan: Low-fat diet and exercise, need to lose weight but is aware of the problem that patient is wheelchair-bound (4) Splenomegaly: Code(s): R16.1 - Splenomegaly, not elsewhere classified Plan: This is brought about by the hepatic steatosis. Orders: Orders US renal BI Today R35.0 - Frequency of micturition US bladder Today R35.0 - Frequency of micturition Medications: New cyclobenzaprine 10 mg PO TID PRN 30 tabs 0RF muscle spasm R10.9 - Unspecified abdominal pain Coding Level of Care Code Est Pt Level 4 (04696) Diagnoses Right flank pain R10.9 Frequency of micturition R35.0 Hepatic steatosis K76.0 Splenomegaly R16.1
== END 2023-06-12 12:18 | disposition home or self-care (01) ==
PROVIDERS: PCP Internal Medicine; Visit Provider Internal Medicine
DX: R10.9 Unspecified abdominal pain (principal); R35.0 Frequency of micturition; K76.0 Fatty (change of) liver, not elsewhere classified; R16.1 Splenomegaly, not elsewhere classified
CPT/HCPCS: 99214

== ENCOUNTER 2023-07-27 12:23 | Outpatient (AMB) | payer MEDICARE, MEDICAID, SELFPAY ==
[2023-07-27 12:25] VITALS: BP 122/72; PULSE 88; O2SAT 96; BMI 41.6
--- NOTE | 2023-07-27 12:26 | AM.OFFVISMDC ---
Intake Vital Signs 07/27/23 12:25 Height 5 ft 6 in Weight 257 lb 7.999 oz BMI 41.6 BP 122/72 Blood Pressure Location Lt brachial Position Sitting Pulse 88 Pulse Source Pulse Oximeter Pulse Oximetry (%) 96 Oxygen Delivery Method Room Air Intake Visit Reasons: SAWV, Ear drainage Intake Note: Patient has been dizzy and having neck pain Allergies ketamine [KETAMINE] Allergy (Severe, Verified 07/27/23 12:26) FULL BODY MUSCLE SPASM, CONTRACTIONS, increase in pain - severe sensitivity levofloxacin [From LEVAQUIN] Allergy (Severe, Verified 07/27/23 12:26) FLU SYMPTOMS sulfamethoxazole [From BACTRIM DS] Allergy (Severe, Verified 07/27/23 12:26) FLU LIKE SYMPTOMS metoprolol [METOPROLOL] Allergy (Unknown, Verified 07/27/23 12:26) MUSCLE CONTRACTION,TREMORS Sulfa (Sulfonamide Antibiotics) [SULFA (SULFONAMIDE ANTIBIOTICS)] Allergy (Unknown, Verified 07/27/23 12:26) UNKNOWN hydrochlorothiazide Adverse Reaction (Unknown, Verified 07/27/23 12:26) Unknown From TORECAN Allergy (Unknown, Uncoded 07/27/23 12:26) UNKNOWN steri strips Adverse Reaction (Unknown, Uncoded 07/27/23 12:26) skin irritation Medication List - Last Reconciled 07/27/23 by Marimar Kimble MD amitriptyline 25 mg PO BEDTIME 90 days amlodipine (Norvasc) 10 mg PO DAILY blood pressure monitor As directed cholecalciferol (vitamin D3) 1,250 mcg PO QWEEK 90 days folic acid 1 mg PO DAILY 90 days levothyroxine 125 mcg PO DAILY meclizine 25 mg PO BID montelukast 10 mg PO BEDTIME naratriptan (Amerge) take 1 tab at onset of headache; if no relief may repeat 1 tab after at least 4 hrs; max = 2 tabs/24 hrs PO oxycodone 30 mg PO .q2 HOURS PRN oxycodone ER 20 mg PO TID PRN propranolol ER 60 mg PO BEDTIME sertraline 12.5 mg (1/2 x 25 mg) PO DAILY 90 days HPI SAWV HPI Details 48-year-old female smoker on wheelchair with a history of RSD hypertension hypothyroidism hypercholesterolemia hepatic steatosis coming here for an annual well visit. Last seen in June 2023. Colonoscopy last done in 2016, Pap smear August 2022. With the RSD patient is following up with pain management pain described as lower 1/3 of the back right knee to foot left arm on immediate release oxycodone 15 mg does hydromorphone 4 mg does [place] drop hydromorphone 72-80 mg per day. Mammo - to see Gyne- due to RSV - asking MRI, nausea and vomiting, - side effects of med. not ready to stop med . bilateral ear discharge, itch- decline health care prody [facility] Medical History (Updated 07/27/23 @ 19:41 by Marimar Kimble MD) GERD (gastroesophageal reflux disease) Rash Incisional breast wound Thyroid nodule Right distal ulnar fracture Ischemic colitis Hypercholesterolemia Tobacco abuse Overactive bladder Migraine Allergic rhinitis Primary hyperparathyroidism Hypertension Psoriasis Polycystic ovarian disease Hypothyroidism Reflex sympathetic dystrophy Surgical History History of excision of mass (11/06/22) Hx of arthroscopy (2015) Hx of removal of cyst (2007) History of cholecystectomy (2010) History of oral surgery (2008) History of incision and drainage (2007) History of right knee surgery (2001) History of removal of cyst (1999) History of arthroscopy of right knee (1997) History of placement of ear tubes (1977) Family History Mother History of breast cancer, Onset Age: 45 Maternal Grandmother History of breast cancer, Onset Age: 60 Paternal Uncle Substance abuse Schizophrenia Paternal Grandfather Substance abuse Maternal Grandfather Substance abuse Other Mental health disorder Social History Housing: Apartment Alcohol intake: never Patient Tobacco Use Status: Current everyday Tobacco user Tobacco use type: Cigarette Cigarettes Per Day: 15 Years Smoked: 6 e-Cigarette/Vaping Use: Never Used Second Hand Smoke Exposure: No Current occupational status: unemployed Current occupation: rt hand Cognitive needs: No Hearing needs: No Vision needs: Yes Questionnaire Medicare Wellness Checkup What is your age?: 65-69 (18-64) What gender do you identify with?: female During the past 4 weeks, how much have you been bothered by emotional problems such as feeling anxious, depressed, irritable, sad or downhearted, and blue?: moderately During the past 4 weeks, has your physical & emotional health limited your social activities with family, friends, neighbors, or groups?: extremely During the past 4 weeks, how much bodily pain have you generally had?: severe pain During the past 4 weeks, was someone available to help you if you needed & wanted help?: yes, as much as I wanted Can you get to places out of walking distance without help? (For eg., can you travel alone on buses, taxis or drive your car?): No Can you go shopping for groceries or clothes without someone's help?: No Can you prepare your own meals?: No Can you do your housework without help?: No Because of any health problems, do you need the help of another person with your personal care needs such as eating, bathing, dressing or getting around the house?: Yes Can you handle your own money without help?: Yes During the past 4 weeks, how would you rate your health in general?: fair During the past 4 weeks how have things been going for you?: good & bad parts about equal Are you having difficulties driving your car?: not applicable, I don't use a car Do you always fasten your seat belt when you are in a car?: yes, usually During past 4 weeks, have you been bothered by the following: never: Sexual problems?, Teeth or denture problems? and Problems using the telephone?, often: Tiredness or fatigue? and always: Falling or dizzy when standing up (Off balance) and Trouble eating well? Have you fallen 2 or more times in the past year?: Yes Are you afraid of falling?: No Are you a smoker?: yes, but I'm not ready to quit During the past 4 weeks, how many drinks of wine, beer, or other alcoholic beverages did you have?: no alcohol at all Do you exercise for about 20 minutes 3 or more times a week?: no, I usually do not exercise this much Have you been given information to help with the following?: no: Hazards in your house that might hurt you? and no: Keeping track of your medications? How often do you have trouble taking medicines the way you have been told to take them?: I always take medicine as prescribed How confident are you that you can control & manage most of your health problems?: very confident What is your race?: White PHQ-9 Over the last 2 weeks, how often have you been bothered by any of the following problems? 1. Little interest or pleasure in doing things: more than half the days 2. Feeling down, depressed, or hopeless: several days 3. Trouble falling or staying asleep, or sleeping too much: nearly every day 4. Feeling tired or having little energy: nearly every day 5. Poor appetite or overeating: nearly every day 6. Feeling bad about yourself - or that you are a failure or have let yourself or your family down: not at all 7. Trouble concentrating on things, such as reading the newspaper or watching television: several days 8. Moving or speaking so slowly that other people could have noticed. Or the opposite - being so fidgety or restless that you have been moving around a lot more than usual: several days 9. Thoughts that you would be better off or of hurting yourself in some way: not at all Total score: 14 Depression Screening Interpretation: Negative Depression Screening Done: Yes Source: Developed by Drs. Christoph Borden, Fozia Segovia, Kota Sage and colleagues, with an educational [place] from [employer]. Review of Systems Const Denies poor appetite and Denies weakness Eyes Denies no additional complaints ENT Reports Normal hearing present, Denies dizziness, Denies nasal congestion, Denies tinnitus and Denies sore throat Card Denies chest pain, Denies syncope, Denies rapid heart rate and Denies dyspnea Resp Denies cough and Denies dyspnea GI Denies change in stool character, Reports constipation, Denies diarrhea, Denies nausea and Denies vomiting Denies urinary frequency, Denies difficulty voiding and Denies dysuria Neuro Reports Normal hearing present, Denies confusion, Denies dizziness, Denies syncope and Denies weakness Psych Denies confusion Physical Exam Vital Signs: Last Vital Signs Pulse 88 07/27/23 12:25 BP 122/72 07/27/23 12:25 Pulse Ox 96 07/27/23 12:25 Oxygen Delivery Method Room Air 07/27/23 12:25 BMI result Body Mass Index 41.6 Const General: No confusion Orientation/consciousness: No confusion HEENT Head: Yes normocephalic Ears: external ears normal and TM's normal bilaterally Face and sinus: Yes normal facial exam Mouth: moist mucous membranes Throat: Yes tonsils normal Eyes Conjunctivae: conjunctivae normal Pupils: Equal, round and reactive pupils present and Pupil accommodation reflex normal Direct Ophthalmoscopy: normal light reflex Neck Neck: No lymphadenopathy Thyroid: Thyroid normal Chest Chest palpation & inspection: normal inspection of the chest Resp Effort & Inspection: normal respiratory effort and no audible wheezes Auscultation: clear to auscultation bilaterally, no crackles, no wheezes and lung sounds not diminished Cardio Rate: regular rate Rhythm: regular rhythm Peripheral pulses: radial pulses present and dorsalis pedis present GI Palpation (GI): no masses Auscultation: normal bowel sounds and normoactive bowel sounds Rectal Exam - Female: deferred Skin General skin exam: no rashes or lesions noted Rashes: no rashes Neuro General: No confusion Cranial nerves: Yes Equal, round and reactive pupils present and Yes Normal hearing present Cognition (Neuro): normal cognition Gait exam (Neuro): Normal gait present Motor exam (neuro): 5/5 motor strength present throughout Deep tendon reflexes (DTR's): Right brachioradialis reflex intensity grade: 2+, Left brachioradialis reflex intensity grade: 2+, Right patellar reflex intensity grade: 2+ and Left patellar reflex intensity grade: 2+ Extrem General: No edema Assessment & Plan Assessment & Plan (1) Otorrhea: Code(s): H92.10 - Otorrhea, unspecified ear Qualifiers: Laterality: bilateral Qualified Code(s): H92.13 - Otorrhea, bilateral Plan: Will treat for otitis externa (2) Medicare annual wellness visit, subsequent: Code(s): Z00.00 - Encounter for general adult medical examination without abnormal findings Plan: Keep well hydrated, eat healthy have adequate sleep. (3) Reflex sympathetic dystrophy: Comment: R leg type 1, L leg type 2 s/p lateral release and medial OR 12/2001 secondary to knee weakness . arms weakness also R leg, lower back and oral , sc implant and removal 2002 problem pain R leg, L arm and perioral area 08/2020 Code(s): G90.50 - Complex regional pain syndrome I, unspecified Plan: Continue to follow-up with pain management (4) Hypertension: Code(s): I10 - Essential (primary) hypertension Qualifiers: Hypertension type: essential hypertension Qualified Code(s): I10 - Essential (primary) hypertension Plan: Continue with blood pressure medication. Decrease salt intake and exercise on amlodipine 10 mg once a day propranolol 60 mg at bedtime (5) Hypothyroidism: Code(s): E03.9 - Hypothyroidism, unspecified Qualifiers: Hypothyroidism type: acquired Qualified Code(s): E03.9 - Hypothyroidism, unspecified Plan: Continue with thyroid medication and blood work up-to-date (6) Hypercholesterolemia: Code(s): E78.00 - Pure hypercholesterolemia, unspecified Plan: Avoid fried foods, chicken skin, eggs, butter margarine, pastries and meat. Be it pork or beef they have a lot of cholesterol LDL goal of less than 130 and triglyceride of less than 150 (7) Tobacco abuse: Code(s): Z72.0 - Tobacco use Plan: Patient is strongly advised to stop smoking! (8) PTSD (post-traumatic stress disorder): Comment: Psychotherapy [facility] from [facility] Code(s): F43.10 - Post-traumatic stress disorder, unspecified Plan: Continue with present medication AND COUNSELLING (9) Hepatic steatosis: Code(s): K76.0 - Fatty (change of) liver, not elsewhere classified Plan: Low-fat diet advised. (10) GERD (gastroesophageal reflux disease): Code(s): K21.9 - Gastro-esophageal reflux disease without esophagitis Qualifiers: Esophagitis presence: without esophagitis Qualified Code(s): K21.9 - Gastro-esophageal reflux disease without esophagitis Plan: Avoid the foods that causes that usually spicy foods, tomato products, juices, coffee, soda and foods that your sensitive to. After eating do not lie down, allow 3-4 hours before in lie down. And keep the head of bed above 30 degrees to avoid the acid from going up. (11) Otitis externa: Code(s): H60.90 - Unspecified otitis externa, unspecified ear Qualifiers: Otitis externa type: unspecified type Chronicity: acute Laterality: bilateral Qualified Code(s): H60.503 - Unspecified acute noninfective otitis externa, bilateral Plan: Antibiotic ear drop sent Orders: Referrals Gastroenterology Referral K21.9 - Gastro-esophageal reflux disease without esophagitis Medications: New [id number] 3.5-10,000-1 mg/mL-unit/mL-% 4 drps otic (ears) Q8H 10 mL 0RF 10 days H60.90 - Unspecified otitis externa, unspecified ear Refilled cholecalciferol (vitamin D3) 1,250 mcg PO QWEEK 13 caps 2RF 90 days E55.9 - Vitamin D deficiency, unspecified Quality Reporting (2019) Depression/Bipolar (159/160/161/177) PHQ-9: Total score: 14 Coding Level of Care Code Medicare Subsequent (G0439) Diagnoses Otorrhea of both ears H92.13 Laterality: bilateral Medicare annual wellness visit, subsequent Z00.00 Reflex sympathetic dystrophy G90.50 Essential hypertension I10 Hypertension type: essential hypertension Acquired hypothyroidism E03.9 Hypothyroidism type: acquired Hypercholesterolemia E78.00 Tobacco abuse Z72.0 PTSD (post-traumatic stress disorder) F43.10 Hepatic steatosis K76.0 Gastroesophageal reflux disease without esophagitis K21.9 Esophagitis presence: without esophagitis Acute otitis externa of both ears, unspecified type H60.503 Otitis externa type: unspecified type Chronicity: acute Laterality: bilateral
== END 2023-07-27 13:30 | disposition home or self-care (01) ==
LOC: HO.HMGH 12:24
PROVIDERS: PCP Internal Medicine; Visit Provider Internal Medicine
DX: Z00.00 Encounter for general adult medical examination without abnormal findings (principal); H92.13 Otorrhea, bilateral; G90.50 Complex regional pain syndrome I, unspecified; I10 Essential (primary) hypertension; E03.9 Hypothyroidism, unspecified; E78.00 Pure hypercholesterolemia, unspecified; Z72.0 Tobacco use; F43.10 Post-traumatic stress disorder, unspecified; K76.0 Fatty (change of) liver, not elsewhere classified; K21.9 Gastro-esophageal reflux disease without esophagitis; H60.503 Unspecified acute noninfective otitis externa, bilateral
CPT/HCPCS: G0439

== ENCOUNTER 2023-12-14 13:25 | Outpatient (AMB) | payer MEDICARE, MEDICAID, SELFPAY ==
--- NOTE | 2023-12-14 13:26 | A.OFFPC_ITS ---
Vital Signs 12/14/23 13:27 Height 5 ft 6 in BMI Reason not done Patient refused/unable BP 136/82 Blood Pressure Location Lt brachial Position Sitting Pulse 82 Pulse Source Pulse Oximeter Pulse Oximetry (%) 97 Oxygen Delivery Method Room Air Intake Visit Reasons: RSD Outpatient Coder Required: No Accompanied by: Self / Same As Patient Allergies ketamine [KETAMINE] Allergy (Severe, Verified 12/14/23 13:27) FULL BODY MUSCLE SPASM, CONTRACTIONS, increase in pain - severe sensitivity levofloxacin [From LEVAQUIN] Allergy (Severe, Verified 12/14/23 13:27) FLU SYMPTOMS sulfamethoxazole [From BACTRIM DS] Allergy (Severe, Verified 12/14/23 13:27) FLU LIKE SYMPTOMS metoprolol [METOPROLOL] Allergy (Unknown, Verified 12/14/23 13:27) MUSCLE CONTRACTION,TREMORS Sulfa (Sulfonamide Antibiotics) [SULFA (SULFONAMIDE ANTIBIOTICS)] Allergy (Unknown, Verified 12/14/23 13:27) UNKNOWN hydrochlorothiazide Adverse Reaction (Unknown, Verified 12/14/23 13:27) Unknown From TORECAN Allergy (Unknown, Uncoded 12/14/23 13:27) UNKNOWN steri strips Adverse Reaction (Unknown, Uncoded 12/14/23 13:27) skin irritation Tobacco use date assessed: 06/12/23 Dental Screening Did you have a dental visit in the last 12 months?: No Did you have a dental problem in the last 6 months where you did not have access to dental care?: No Was dental information given to patient?: Patient declined HPI RSD HPI Details 48-year-old obese female smoker with a h istory of reflex sympathetic dystrophy follows up with pain management hypertension hypothyroidism hypercholesterolemia, hepatic steatosis GERD last seen in July having treated for otitis externa. Review of the notes in August 2023 had an ultrasound of the thyroid showing left-sided thyroid nodules do not meet criteria for tissue sampling or follow-up. Blood work done in August showing normal sodium potassium BUN creatinine of 1.0 sugar of 98 normal liver function parathyroid hormone mildly elevated with normal vitamin-D normal TSH.. Patient follows up with pain management for the right leg pain. Patient has been using a walker for mobility and now complains of bilateral hand pain as well as the right shoulder pain denies any fall or trauma and the right arm elevation is up to 90 degrees. [facility] Medical History (Updated 12/14/23 @ 13:49 by Marimar Kimble MD) GERD (gastroesophageal reflux disease) Rash Incisional breast wound Thyroid nodule Right distal ulnar fracture Ischemic colitis Hypercholesterolemia Tobacco abuse Overactive bladder Migraine Allergic rhinitis Primary hyperparathyroidism Hypertension Psoriasis Polycystic ovarian disease Hypothyroidism Reflex sympathetic dystrophy Surgical History History of excision of mass (11/06/22) Hx of arthroscopy (2015) Hx of removal of cyst (2007) History of cholecystectomy (2010) History of oral surgery (2008) History of incision and drainage (2007) History of right knee surgery (2001) History of removal of cyst (1999) History of arthroscopy of right knee (1997) History of placement of ear tubes (1977) Family History Mother History of breast cancer, Onset Age: 45 Maternal Grandmother History of breast cancer, Onset Age: 60 Paternal Uncle Substance abuse Schizophrenia Paternal Grandfather Substance abuse Maternal Grandfather Substance abuse Other Mental health disorder Social History Housing: Apartment Alcohol intake: never Patient Tobacco Use Status: Current everyday Tobacco user Tobacco use type: Cigarette Cigarettes Per Day: 15 Years Smoked: 6 e-Cigarette/Vaping Use: Never Used Second Hand Smoke Exposure: No Current occupational status: unemployed Current occupation: rt hand Cognitive needs: No Hearing needs: No Vision needs: Yes Questionnaire PHQ-9 Over the last 2 weeks, how often have you been bothered by any of the following problems? 1. Little interest or pleasure in doing things: more than half the days 2. Feeling down, depressed, or hopeless: several days 3. Trouble falling or staying asleep, or sleeping too much: nearly every day 4. Feeling tired or having little energy: nearly every day 5. Poor appetite or overeating: nearly every day 6. Feeling bad about yourself - or that you are a failure or have let yourself o r your family down: not at all 7. Trouble concentrating on things, such as reading the newspaper or watching television: several days 8. Moving or speaking so slowly that other people could have noticed. Or the opposite - being so fidgety or restless that you have been moving around a lot more than usual: several days 9. Thoughts that you would be better off or of hurting yourself in some way: not at all Total score: 14 Depression Screening Interpretation: Negative Depression Screening Done: Yes Source: Developed by Drs. Christoph Borden, Fozia Segovia, Kota Sage and colleagues, with an educational charlotte from [employer]. Thrive Questionnaire Date Thrive assessed: 12/14/23 I am a: Patient What is your living situation today?: I have a steady place to live THRIVE Score: 0 AUDIT C Alcohol Use Questionnaire (AUDIT-C) 1. How often do you have a drink containing alcohol?: Never 3. How often do you have six or more drinks on one occasion?: Never Total Score: 0 SHILPA-7 AMB Questionnaire SHILPA-7 Date SHILPA - 7 assessed: 12/14/23 Feeling nervous, anxious, or on edge: 0 = Not at all Not being able to stop or control worryin = Not at all Worrying too much about different things: 0 = Not at all Trouble relaxin = Not at all Being so restless that it is hard to sit still: 0 = Not at all Becoming easily annoyed or irritable: 0 = Not at all Feeling afraid as if something awful might happen: 0 = Not at all Total SHILPA-7 score (0-4 normal; 5-9 mild; 10-14 moderate; 15-21 severe): 0 Source: Developed by Drs. Christoph Borden, Fozia Segovia, Kota Sage and colleagues, with an educational charlotte from [employer]. SHILPA-7 Assessment Billing SHILPA-7 Assessment Tool: SHILPA-7 Assessment 71959 Physical exam (Primary Care) Vital Signs: Last Vital Signs Pulse 82 12/14/23 13:27 BP 136/82 12/14/23 13:27 Pulse Ox 97 12/14/23 13:27 Oxygen Delivery Method Room Air 12/14/23 13:27 Care Plan Goal for BP management: Wheelchair born Tobacco/Smoking Status: Tobacco use Status Tobacco use date assessed 06/12/23 12/14/23 13:33 Patient Tobacco Use Status Current everyday Tobacco 12/14/23 13:33 Tobacco use type Cigarette 12/14/23 13:33 e-Cigarette/Vaping Use Never Used 09/09/24 13:33 PHQ-9: PHQ-9 Score PHQ-9: Total score 14 12/14/23 13:33 Depression Screening Interpretation: Negative Thrive Assessment: Date of Thrive Assessment Date Thrive assessed 12/14/23 12/14/23 13:33 Const General: alert; No acute distress Eyes Conjunctivae: conjunctivae normal Resp Auscultation: clear to auscultation bilaterally Cardio Rate: regular rate Rhythm: regular rhythm GI Inspection: Yes normal to inspection Extrem Other: No swelling or redness noted on the joints there is limitation right shoulder elevation to 90 degrees with pain mostly on the anterior and to certain extent on lateral and posterior area. Can not elevate the arm Assessment and Plan Assessment & Plan (1) Reflex sympathetic dystrophy: Comment: R leg type 1, L leg type 2 s/p lateral release and medial OR 12/2001 secondary to knee weakness . arms weakness also R leg, lower back and oral , sc implant and removal 2002 problem pain R leg, L arm and perioral area 08/2020 Code(s): G90.50 - Complex regional pain syndrome I, unspecified Plan: Continue to follow-up with pain management on narcotic pain medication. (2) Hypertension: Code(s): I10 - Essential (primary) hypertension Qualifiers: Hypertension type: essential hypertension Qualified Code(s): I10 - Essential (primary) hypertension Plan: Continue with blood pressure medication. Decrease salt intake and exercise patient on amlodipine 10 mg once a day propranolol 60 mg once a day (3) Hypothyroidism: Code(s): E03.9 - Hypothyroidism, unspecified Qualifiers: Hypothyroidism type: acquired Qualified Code(s): E03.9 - Hypothyroidism, unspecified Plan: Continue with thyroid medication (4) Tobacco abuse: Code(s): Z72.0 - Tobacco use Plan: Patient is strongly advised to stop smoking (5) PTSD (post-traumatic stress disorder): Comment: Psychotherapy [facility] from [facility] Code(s): F43.10 - Post-traumatic stress disorder, unspecified Plan: Continue with counseling and therapy (6) Ear discharge of both ears: Code(s): H92.13 - Otorrhea, bilateral Plan: refer to ent (7) Bilateral hand pain: Code(s): M79.641 - Pain in right hand; M79.642 - Pain in left hand Plan: xr requested (8) Foot pain, right: Code(s): M79.671 - Pain in right foot Plan: xr foot requested (9) Right shoulder pain: Code(s): M25.511 - Pain in right shoulder Plan: xray requested, decline PT for now Orders: Orders XR hand LT 2V Today M79.641 - Pain in right hand, M79.642 - Pain in left hand XR hand RT 2V Today M79.641 - Pain in right hand, M79.642 - Pain in left hand XR shoulder RT min 2V Today M25.511 - Pain in right shoulder XR foot RT 2V Today M79.671 - Pain in right foot Referrals Ear/Nose/Throat Referral H92.13 - Otorrhea, bilateral Medications: New hydrocortisone-acetic acid 1-2 % apply to (cotton) wick; replace wick every 24 hours 4 drps otic (ears) TID 10 mL 0RF H92.13 - Otorrhea, bilateral Coding Level of Care Code Est Pt Level 4 (74421) Diagnoses Reflex sympathetic dystrophy G90.50 Essential hypertension I10 Hypertension type: essential hypertension Acquired hypothyroidism E03.9 Hypothyroidism type: acquired Tobacco abuse Z72.0 PTSD (post-traumatic stress disorder) F43.10 Ear discharge of both ears H92.13 Bilateral hand pain M79.641; M79.642 Foot pain, right M79.671 Right shoulder pain M25.511 Additional Codes SHILPA-7 Assessment Billing - SHILPA-7 Assessment Tool: SHILPA-7 Assessment 53735 ( [id number])
[2023-12-14 13:27] VITALS: BP 136/82; PULSE 82; O2SAT 97
== END 2023-12-14 13:57 | disposition home or self-care (01) ==
PROVIDERS: PCP Internal Medicine; Visit Provider Internal Medicine
DX: G90.50 Complex regional pain syndrome I, unspecified (principal); I10 Essential (primary) hypertension; E03.9 Hypothyroidism, unspecified; F17.210 Nicotine dependence, cigarettes, uncomplicated; F43.10 Post-traumatic stress disorder, unspecified; H92.13 Otorrhea, bilateral; M79.641 Pain in right hand; M79.642 Pain in left hand; M79.671 Pain in right foot; M25.511 Pain in right shoulder
CPT/HCPCS: 99214

== ENCOUNTER 2024-03-21 14:33 | Outpatient (REF) | payer MEDICARE, MEDICAID, SELFPAY ==
--- OUTSIDE RECORDS SUMMARY | 2024-03-21 14:36 | XMS_ITS | Continuity of Care Document ---
Author Organization [facility] Address [address] [place] [address] [facility] Name Relationship Address Phone CAL, CATY Personal Relationship Unknown Unava ilable CAL, CATY Personal Relationship Unknown Unava ilable CAL, CATY Personal Relationship Unknown Unava ilable CAL, BRANDON Personal Relationship Unknown Unavai lable CAL, BRANDON mother Unknown Unavailable CAL, BRANDON Personal Relationship Unknown Unavai lable CAL, CATY Personal Relationship Unknown Unava ilable Care Team Providers Care Contact Center Professional Name Role Phone Po Marimar REGALADO Primary Care Physician [phone] Encounter [facility] [id number] Date(s): 01/25/24 - 02/24/24 [facility] [address] [place] [id number] Encounter Type: Triage Allergies, Adverse Reactions, Alerts Substance Criticality Severity Reaction Reaction Severity Status metoprolol Active Torecan Active Levaquin Active Bactrim DS chills, n/v, tremors Active Ketamine Hydrochloride Active Medications amitriptyline 25 mg oral tablet Refills 0, Maintenance, 09/11/22 3:53:00 PM EDT, Partial fill upon patient request if the prescription is for a schedule II opioid drug. Start Date: 09/11/22 Status: Ordered Repeat number: 1 amLODIPine 10 mg oral tablet 1 tablet = 10 mg, By Mouth, Daily, # 30 tablet, 0 Refills, Maintenance, 09/11/22 3:53:00 PM EDT, Tablet, Partial fill upon patient request if the prescription is for a schedule II opioid drug. Start Date: 09/11/22 Status: Ordered Quantity: 30.0 Unit: tablet Repeat number: 1 Controlled Substance Agreement Controlled Substance Agreement, See Instructions, # 1 each, Refills 0, Tot. Refills 0, Maintenance,Updated On 12/17/23 Pharmacy I: [facility] DX: M79.2 neuropathic pain lower extrem, G90.529 CRPS, 12/17/23 4:25:00 PM EDT, Supply Start Date: 12/17/23 Status: Ordered Quantity: 1.0 Unit: each Repeat number: 1 Excedrin Migraine By Mouth, Every 6 hours, PRN Headache, 0 Refills, Maintenance, 02/01/20 1:54:00 PM EDT Start Date: 02/01/20 Status: Ordered Repeat number: 1 famotidine 20 mg oral tablet 1 to 2 tablet, By Mouth, 2 times a day, Refills 0, Maintenance, 02/01/20 1:53:00 PM EDT Start Date: 02/01/20 Status: Ordered Repeat number: 1 folic acid 1 mg oral tablet 1 mg, 1, tablet, By Mouth, Daily, # 30 tablet, Refills 0, Maintenance, 04/09/21 3:17:00 PM EST, Partial fill upon patient request if the prescription is for a schedule II opioid drug. Start Date: 04/09/21 Status: Ordered Quantity: 30.0 Unit: tablet Repeat number: 1 lamotrigine 25 mg oral tablet See Instructions, 1 tab po at hs for 1 wk, increase by 1 tab/day weekly until at 2 tabs po bid, # 70 tablet, Refills 0, Tot. Refills 0, Maintenance, 12/17/23 4:55:00 PM EDT, Instructions Replace Required Details, Route to Pharmacy Electronically, [facility], Partial fill upon patient request if the prescription is for a schedule II opioid drug., 170, cm, 12/17/23 15:44:00 EDT, Height Start Date: 12/17/23 Status: Ordered Quantity: 70.0 Unit: tablet Repeat number: 1 Levothroid 0.112 mg oral tablet 1 tablet = 112 mcg, By Mouth, Daily, 0 Refills, Maintenance, 03/10/13 2:22:44 PM EST Start Date: 03/10/13 Status: Ordered Repeat number: 1 lidocaine 5% topical film 1 - 2 patches, Topically, Daily, remove after 12 hours. PRN moderate to severe pain, # 30 patch, 0 Refills, Maintenance, 01/27/23 4:11:00 PM EDT, Film, [facility], 1 - 2 patches Topically Daily,Instr:remove after 12 hours. PRN moderate to severe pain, 170, cm, 01/27/23 14:29:00 EDT, Height Start Date: 01/27/23 Status: Ordered Quantity: 30.0 Unit: patch Repeat number: 1 meclizine 25 mg oral tablet 1 tablet = 25 mg, By Mouth, 4 times a day, PRN nausea/vertigo, # 112 tablet, 5 Refills, Maintenance, 06/03/23 9:29:00 AM EST, [facility], 170, cm, 04/07/23 14:45:00 EST, Height Start Date: 06/03/23 Status: Ordered Quantity: 112.0 Unit: tablet Repeat number: 6 Mirena 52 mg intrauteral device 1 each = 52 mg, Once, 0 Refills, Maintenance, 11/21/15 2:23:10 PM EDT Start Date: 11/21/15 Status: Ordered Repeat number: 1 montelukast 10 mg oral tablet Refills 0, Maintenance, 10/10/20 2:35:00 PM EDT, Partial fill upon patient request if the prescription is for a schedule II opioid drug. Start Date: 10/10/20 Status: Ordered Repeat number: 1 Narcan 4 mg/0.1 mL nasal spray See Instructions, SPRAY ONCE INTO ONE NOSTRIL MAY REPEAT Q 2 TO 3 MINUTES IN ALTERNATE NOSTRILS IF NO RESPONSE, # 2 each, 0 Refills, Maintenance, 04/17/21 8:19:00 AM [facility], [facility], For personal and community harm reduction, 170.18, cm, 02/05/21 15:22:00 EDT, Height Start Date: 04/17/21 Status: Ordered Quantity: 2.0 Unit: each Repeat number: 1 oxyCODONE 15 mg oral tablet See Instructions, 0.5-1 tab po q 4hrs, MAX 6 tabs/day. reflects dose change from 02/15, # 84 tablet, 0 Refills, Maintenance, 02/22/24 12:54:00 PM EST, [facility], Partial fill upon patient request, 170, cm, 02/01/24 11:37:00 EDT, Height Start Date: 02/22/24 Status: Ordered Quantity: 84.0 Unit: tablet Repeat number: 1 Indication: Neuralgia and neuritis, unspecified propranolol 60 mg oral capsule, extended release 60 mg, 1, capsule, By Mouth, Daily at bedtime, Refills 0, Maintenance, 12/30/21 2:15:00 PM EDT, Partial fill upon patient request if the prescription is for a schedule II opioid drug. Start Date: 12/30/21 Status: Ordered Repeat number: 1 sertraline 25 mg oral tablet 0.5 tablet = 12.5 mg, By Mouth, Daily, 0 Refills, Maintenance, 09/11/22 3:53:00 PM EDT, Tablet, Partial fill upon patient request if the prescription is for a schedule II opioid drug. Start Date: 09/11/22 Status: Ordered Repeat number: 1 Vitamin D 91084 iu oral capsule 1, capsule, By Mouth, Every week, # 4 capsule, Refills 0, Maintenance, 04/09/21 3:19:00 PM EST, Partial fill upon patient request if the prescription is for a schedule II opioid drug. Start Date: 04/09/21 Status: Ordered Quantity: 4.0 Unit: capsule Repeat number: 1 Problem List Condition Confirmation Course Effective Dates Status Health Status Informant Ankle pain, right Confirmed Active Anticonvulsant causing adverse effect in therapeutic use: tiagabine 1 Confirmed Active Adverse effect of antidepressant drug: duloxetine 2 Confirmed Active Bony pelvic pain: marked tenderness at the right ant. sup. iliac spine Confirmed Active Central pain syndrome Confirmed Active Decreased range of motion of right shoulder Confirmed Active Depressive disorder, persistent Confirmed Active Edentulous Confirmed Active Family history of alcohol use disorder: pat grand father; mat gr grandfather Confirmed Active Family history of breast cancer: mother dx age 45, premenopauseal, bilat; mat. gr. mother mid- late 60s Confirmed Active GERD (gastroesophageal reflux disease) Confirmed Active History of vertigo Confirmed Active Hypercholesterolemia Confirmed Active Hypertension Confirmed Active Hypertriglyceridemia Confirmed Active Irritable Bowel Syndrome Confirmed Active Pruritus Confirmed Active Knee pain, right Confirmed Active Knee pain, left Confirmed Active Lack of adequate sleep Confirmed Active Status post laparoscopic cholecystectomy Confirmed 04/2010 Active ; Leg length inequality Confirmed Active Limitation of activities due to disability 3, 4, 5, 6, 7, 8, 9, 10, 11 Confirmed Active Liver enzymes abnormal Confirmed Active Methadone causing adverse effects in therapeutic use 12 Confirmed Active Depressive disorder due to separate medical condition Confirmed Active Nausea 13 Confirmed Active Neuropathic pain, lower extremity 14 Confirmed Active Neuropathic pain: trunk 15 Confirmed Active Neuropathic pain, upper extremity 16 Confirmed Active Opioids causing adverse effect in therapeutic use: morphine 17 Confirmed Active Opioids causing adverse effect in therapeutic use: oxycodone 18 Confirmed Active Oral pain Confirmed Active Opioids causing adverse effects in therapeutic use: buprenorphine 19 Confirmed Active Wrist pain, left Confirmed Active PCOS - Polycystic ovarian syndrome Confirmed Active Post-traumatic stress disorder Confirmed Active Risk assessment: Adverse Childhood Experience 20 Confirmed Active Severe obesity (BMI 35.0-39.9) with comorbidity Confirmed Active Shoulder pain, right Confirmed Active 1Tiagabine trialed 07/08-07/22/2012. Associated with nausea, vomiting, abdominal pain, dizziness and fatigue at 2mg/day. Trial aborted. 2Trial of duloxetine begun 11/09/20. On 12/17 on 60mg x 4.5+ weeks, no improvement in pain. AEs: dizziness; brain fog; sensation-> room spinning; nausea; vomiting at least once/wk; severe hot flashes; xerostomia; severe tremor/shaking; anorexia; tinnitus; inner ear pressure. Dose reduced. Trial luis alberto ndoned 12/24/20. 3Updated Oswestry Disability Index: 51% (23/45) severe disability and Updated [place] Back Pain Disability Scale: 50, both on 01/27/23 4Updated Oswestry Disability Index: 68% ( crippled ); updated [place] Pain Disability Scale score: 77; both on 10/15/21 5Updated Oswestry Disability Index: 66% ( crippled ); updated [place] Pain Disability Scale score: 72 both on 08/06/20 6Updated Oswestry Disability Index: 70% crippled and [place] Pain Disability Scale: 84 on 06/27/2019. 7Updated Oswestry Disability Index: 49% (22/45) severe disability in 07/27/18. Updated [place] Pain Disability Scale: 66 on 07/27/18 8Updated Oswestry Disability Index: 76% ( crippled ) on 06/02/17; updated [place] Pain Disability Scale score: 81 on 06/02/17 9Updated Oswestry: 71% crippled (32/45) on 02/04/16. Updated [place] Disability Scale: 80 on 02/04/16. 10Updated Oswestry Disability Index: 70% ( crippled ) on 12/19/14; updated [place] Pain Disability Scale score: 65 on 12/19/14. 11Initial Oswestry Disability Index abigail 2.0: 72% ( Crippled ) 04/01/10; Updated Oswestry: 56% ( severe disability ) on 01/23/2011; Updated Oswestry: 62% ( crippled ) on 10/20/2013 12Trial of methadone begun 03/08/19. On 03/14 reported nausea, vertigo - unless I am laying down I am sick; on meclizine 25 mg TID, methadone 5mg 2/1/0.5. Trialed scopolamine. On 03/22/19, given persistent nausea, dizziness, moodiness, constipation as well as muscle aches, trial abandoned. 13at least in part, opioid treatment related 14In setting of hisory of complex regional pain syndrome 2, lower extremity, right 15In the setting of history of complex regional pain syndrome 1, involving the trunk 16In the setting of history of complex regional pain syndrome 1, upper extremity, left 17Immediate release morphine trialed 12/03/2012 to 12/07/12. Morphine to a dose of 360mg/day resulted inless pain control than 96 to 112mg hydromorphone/day and was associated with abdominal pain, severeheadache and vertigo. 18Trial of i.r. oxycodone begun 12/14/2012. Rotation to oxycodone was initially associated with improved pain control but with continued use, analgesic efficacy diminished & persistent nausea/vomiting and diarrhea led to the abandonment of oxycodone on 02/10/2013.. 19Transdermal buprenorphine begun 12/18/2011. Treatment with the 20mcg/hr patch in addition to hydromorphone was associated with improved pain reduction; AEs including rash, pruritus, & skin breakdown at the patch site; chest pain; altered mood (aggression, anger). Transdermal buprenorphine d/c'd 02/01/12. 20ACE score: 6 on 02/11/17 Social History Social History Type Response Smoking Status 10 or more cigarette s (1/2 pack or more)/day in last 30 days; Type: Cigarettes; Type: e-cigarettes entered on: 07/14/22 Sex Sex Representation Female (finding) Patient Care team information Care Team Personnel Name: Tex Benito MD, Diaz Dodge Position: S Anesthesiology MD Member Role: Lifetime Consulting Physician Address: [address] [place] [address] [place] [address]- [place] Telecom: Name: Marimar Kimble MD Position: Reference Physician Member Role: PCP Address: [address] [place] [phone]- Telecom: Care Team Related Persons Name: BRANDON MCCALL Insurance Providers Guarantor name: CATY MCCALL Health Plan Information #: 1 Payer: MEDICARE PART B OUTPT Member Number: NA Policy Number: NA Group Number: NA Health Plan Information #: 2 Payer: [facility] Member Number: NA Policy Number: NA Group Number: NA
--- OUTSIDE RECORDS SUMMARY | 2024-03-21 14:36 | XMS_ITS | Continuity of Care Document ---
Author Organization [facility] Address [address] [place] [address]- Care Team Providers Care Cash Sales Audit Clerk Name Role Phone Po Marimar REGALADO Primary Care Physician [phone] [id number] Date(s): 01/20/24 - 02/19/[facility] [address] [place] [phone]- Encounter Type: Triage Allergies, Adverse Reactions, Alerts Substance Criticality Severity Reaction Reaction Severity Status metoprolol Active Torecan Active Ketamine Hydrochloride Active Levaquin Active Bactrim DS chills, n/v, tremors Active Problem List Condition Confirmation Course Effective Dates [...] Index: 51% (23/45) severe disability and Updated [place] Back Pain Disability Scale: 50, both on 01/27/23 4Updated Oswestry Disability Index: 68% ( crippled ); updated [place] Back Pain Disability Scale score: 77; both on 10/15/21 5Updated [place]estry Disability Index: 66% ( crippled ); updated [place] Back Pain Disability Scale score: 72 both on 08/06/20 6Updated Oswestry Disability Index: 70% crippled and [place] Back Pain Disability Scale: 84 on 06/27/2019. 7Updated Oswestry Disability Index: 49% (22/45) severe disability in 07/27/18. Updated [place] Back Pain Disability Scale: 66 on 07/27/18 8Updated Oswestry Disability Index: 76% ( crippled ) on 06/02/17; updated [facility] Back Pain Disability Scale score: 81 on 06/02/17 9Updated Oswestry: 71% crippled (32/45) on 02/04/16. Updated [place] Disability Scale: 80 on 02/04/16. 10Updated Oswestry Disability Index: 70% ( crippled ) on 12/19/14; updated [facility] Back Pain Disability Scale score: 65 on 12/19/14. 11Initial Oswestry Disability Index abigail 2.0: 72% ( Crippled ) 04/01/10; Updated Oswestry: 56% ( severe disability ) on 01/23/2011; Updated Oswestry: 62% ( crippled ) on 10/20/2013 12Trial of methadone begun 03/08/19. On 03/14 reported nausea, vertigo - unless I am laying down I am sick; on meclizine 25 mg TID, methadone 5mg 2//0.5. Trialed scopolamine. On 03/22/19, given persistent nausea, [...] Name: Tex Benito MD, Diaz Dodge Position: [facility] Anesthesiology MD Member Role: Lifetime Consulting Physician Address: [address] [place] [address] [place] [address]- Telecom: Name: Marimar Kimble MD Position: Reference Physician Member Role: PCP Address: [address] [place] [address]- Telecom: Care Team Related Persons Name: BRANDON MCCALL Insurance Providers Guarantor name: CATY MCCALL Health Plan Information #: 1 Payer: MEDICARE PART B OUTPT Member Number: NA Policy Number: NA Group Number: NA Health Plan Information #: 2 Payer: [place] Member Number: NA Policy Number: NA Group Number: NA
--- OUTSIDE RECORDS SUMMARY | 2024-03-21 14:36 | XMS_ITS | Continuity of Care Document ---
Author Organization [facility] Address [address] [place] [address]- [facility] Name Relationship Address Phone CAL, CATY Personal Relationship Unknown Unava ilable CAL, CATY Personal Relationship Unknown Unava ilable CAL, CATY Personal Relationship Unknown Unava ilable CAL, BRANDON Personal Relationship Unknown Unavai lable CAL, BRANDON mother Unknown Unavailable CAL, BRANDON Personal Relationship Unknown Unavai lable CAL, CATY Personal Relationship Unknown Unava ilable Care Team Providers Care Cancer Program Consultant Name Role Phone Po Marimar REGALADO Primary Care Physician [phone] [id number] Date(s): 01/25/24 - 02/24/[facility] [address] [place] [address] Encounter Type: Triage Allergies, Adverse Reactions, Alerts Substance Criticality Severity Reaction Reaction Severity Status metoprolol Active Torecan Active Levaquin Active Ketamine Hydrochloride Active Bactrim DS chills, n/v, tremors Active Medications amitriptyline 25 mg oral tablet [...] On 12/17/23 Pharmacy I: [facility] DX: M79.2 neuropathic pain lower extrem, [...] each, 0 Refills, Maintenance, 04/17/21 8:19:00 AM [facility], [facility], For personal and community harm reduction, 170.18, cm, 02/05/21 15:22:00 EDT, Height Start Date: 04/17/21 Status: Ordered Quantity: 2.0 Unit: each Repeat number: 1 oxyCODONE 15 mg oral tablet See Instructions, 0.5-1 tab po q 4hrs, MAX 6 tabs/day. reflects dose change from 02/15, # 84 tablet, 0 Refills, Maintenance, 02/22/24 12:54:00 PM EST, [email or web address], Partial fill upon patient request, [...] Status: Ordered Repeat number: 1 Vitamin D 13171 iu oral capsule 1, capsule, By Mouth, [...] Index: 51% (23/45) severe disability and Updated [place] Back Pain Disability Scale: 50, both on 01/27/23 4Updated Oswestry Disability Index: 68% ( crippled ); updated [place] Back Pain Disability Scale score: 77; both on 10/15/21 5Updated Oswestry Disability Index: 66% ( crippled ); updated [place] Back Pain Disability Scale score: 72 both on 08/06/20 6Updated Oswestry Disability Index: 70% crippled and [place] Back Pain Disability Scale: 84 on 06/27/2019. 7Updated Oswestry Disability Index: 49% (22/45) severe disability in 07/27/18. Updated [place] Back Pain Disability Scale: 66 on 07/27/18 8Updated Oswestry Disability Index: 76% ( crippled ) on 06/02/17; updated [place] Back Pain Disability Scale score: 81 on 06/02/17 9Updated Oswestry: 71% crippled (32/45) on 02/04/16. Updated [place] Disability Scale: 80 on 02/04/16. 10Updated Oswestry [...] MD Member Role: Lifetime Consulting Physician Address: [address] [place] [address] [place] [address]- [place] Telecom: Name: Marimar Kimble MD Position: Reference Physician Member Role: PCP Address: [address] [place] [address]- Telecom: Care Team Related Persons Name: BRANDON MCCALL Insurance Providers Guarantor name: CATY MCCALL Health Plan Information #: 1 Payer: MEDICARE PART B OUTPT Member Number: NA Policy Number: NA Group Number: NA Health Plan Information #: 2 Payer: [facility] Member Number: NA Policy Number: NA Group Number: NA
--- OUTSIDE RECORDS SUMMARY | 2024-03-21 14:36 | XMS_ITS | Continuity of Care Document ---
Author Organization [facility] Address [address] [place] [address]- [facility] Name Relationship Address Phone CAL, CATY Personal Relationship Unknown Unava ilable CAL, CATY Personal Relationship Unknown Unava ilable CAL, CATY Personal Relationship Unknown Unava ilable CAL, BRANDON Personal Relationship Unknown Unavai lable CAL, BRANDON mother Unknown Unavailable CAL, BRANDON Personal Relationship Unknown Unavai lable CAL, CATY Personal Relationship Unknown Unava ilable Care Team Providers Care Metaphysicist Name Role Phone Po Marimar REGALADO Primary Care Physician [phone] [id number] Date(s): 02/16/24 - 03/17/[facility] [address] [place] [address] Encounter Type: Triage Allergies, Adverse Reactions, Alerts [...] On 12/17/23 Pharmacy [facility]: [facility] DX: M79.2 neuropathic pain lower extrem, G90.529 [...] Maintenance, 06/03/23 9:29:00 AM EST, [facility], 170, cm, 04/07/23 14:45:00 EST, [...] each, 0 Refills, Maintenance, 04/17/21 8:19:00 AM [facility], [facility], For personal and community harm reduction, 170.18, cm, 02/05/21 15:22:00 EDT, Height Start Date: 04/17/21 Status: Ordered Quantity: 2.0 Unit: each Repeat number: 1 oxyCODONE 15 mg oral tablet See Instructions, 0.5-1 tab po q 4hrs, MAX 6, # 84 tablet, 0 Refills, Maintenance, 03/11/24 4:21:00 PM [facility], [facility], Partial fill upon patient request, 170, cm, 02/01/24 11:37:00 EDT, Height Start Date: 03/11/24 Status: Ordered Quantity: 84.0 Unit: tablet Repeat [...] Status: Ordered Repeat number: 1 Vitamin D 77187 iu oral capsule 1, capsule, By Mouth, [...] Index: 51% (23/45) severe disability and Updated [place] Back Pain Disability Scale: 50, both on 01/27/23 4Updated Oswestry Disability Index: 68% ( crippled ); updated [place] Back Pain Disability Scale score: 77; both on 10/15/21 5Updated Oswestry Disability Index: 66% ( crippled ); updated [place] Back Pain Disability Scale score: 72 both on 08/06/20 6Updated Oswestry Disability Index: 70% crippled and [place] Back Pain Disability Scale: 84 on 06/27/2019. 7Updated Oswestry Disability Index: 49% (22/45) severe disability in 07/27/18. Updated [place] Back Pain Disability Scale: 66 on 07/27/18 8Updated Oswestry Disability Index: 76% ( crippled ) on 06/02/17; updated [place] Back Pain Disability Scale score: 81 on 06/02/17 9Updated Oswestry: 71% crippled (32/45) on 02/04/16. Updated [place] Disability Scale: 80 on 02/04/16. 10Updated Oswestry [...] Name: Tex Benito MD, Diaz Dodge Position: [facility] Anesthesiology MD Member Role: Lifetime Consulting Physician Address: [address] [facility] [place] [address]- [place] Telecom: Name: Marimar Kimble MD Position: Reference Physician Member Role: PCP Address: [address] [place] [address]- Telecom: Care Team Related Persons Name: BRANDON MCCALL Insurance Providers Guarantor name: CATY MCCALL Health Plan Information #: 1 Payer: MEDICARE PART B OUTPT Member Number: NA Policy Number: NA Group Number: NA Health Plan Information #: 2 Payer: [facility] Member Number: NA Policy Number: NA Group Number: NA
--- OUTSIDE RECORDS SUMMARY | 2024-03-21 14:36 | XMS_ITS | Continuity of Care Document ---
Author Organization [facility] Address [address] [place] [address]- [facility] Name Relationship Address Phone CAL, CATY Personal Relationship Unknown Unava ilable CAL, CATY Personal Relationship Unknown Unava ilable CAL, CATY Personal Relationship Unknown Unava ilable CAL, BRANDON Personal Relationship Unknown Unavai lable CAL, BRANDON mother Unknown Unavailable CAL, BRANDON Personal Relationship Unknown Unavai lable CAL, CATY Personal Relationship Unknown Unava ilable Care Team Providers Care Drapery Estimator Name Role Phone Po Marimar REGALADO Primary Care Physician [id number] Date[facility] 02/10/24 - 03/11/[facility] [address] [place] [address]- Encounter Type: Triage Allergies, Adverse Reactions, Alerts [...] On 12/17/23 Pharmacy I: [facility] DX: M79.2 neuropathic pain lower extrem, G90.529 [...] Maintenance, 06/03/23 9:29:00 AM EST, [facility], 170, cm, 04/07/23 14:45:00 EST, [...] each, 0 Refills, Maintenance, 04/17/21 8:19:00 AM [facility], [facility], For personal and community harm reduction, 170.18, cm, 02/05/21 15:22:00 EDT, Height Start Date: 04/17/21 Status: Ordered Quantity: 2.0 Unit: each Repeat number: 1 oxyCODONE 15 mg oral tablet See Instructions, 0.5-1 tab po q 4hrs, MAX 6, # 84 tablet, 0 Refills, Maintenance, 03/11/24 4:21:00 PM [facility], [facility], Partial fill upon patient request, [...] Status: Ordered Repeat number: 1 Vitamin D 32489 iu oral capsule 1, capsule, By Mouth, [...] Index: 51% (23/45) severe disability and Updated [place] Back Pain Disability Scale: 50, both on 01/27/23 4Updated Oswestry Disability Index: 68% ( crippled ); updated [place] Back Pain Disability Scale score: 77; both on 10/15/21 5Updated Oswestry Disability Index: 66% ( crippled ); updated [place] Back Pain Disability Scale score: 72 both on 08/06/20 6Updated Oswestry Disability Index: 70% crippled and [place] Back Pain Disability Scale: 84 on 06/27/2019. 7Updated Oswestry Disability Index: 49% (22/45) severe disability in 07/27/18. Updated [place] Back Pain Disability Scale: 66 on 07/27/18 8Updated Oswestry Disability Index: 76% ( crippled ) on 06/02/17; updated [place] Back Pain Disability Scale score: 81 on 06/02/17 9Updated Oswestry: 71% crippled (32/45) on 02/04/16. Updated [place] Disability Scale: 80 on 02/04/16. 10Updated Oswestry [...] Name: Tex Benito MD, Diaz Dodge Position: [facility] Anesthesiology MD Member Role: Lifetime Consulting Physician Address: [address] [facility] [place] [address]- [place] Telecom: Name: Marimar Kimble MD Position: Reference Physician Member Role: PCP Address: [address] [place] [address]- Telecom: Care Team Related Persons Name: BRANDON MCCALL Insurance Providers Guarantor name: CATY MCCALL Health Plan Information #: 1 Payer: MEDICARE PART B OUTPT Member Number: NA Policy Number: NA Group Number: NA Health Plan Information #: 2 Payer: [facility] Member Number: NA Policy Number: NA Group Number: NA
--- OUTSIDE RECORDS SUMMARY | 2024-03-21 14:36 | XMS_ITS | Continuity of Care Document ---
Author Organization [facility] Address [address] [place] [address] [facility] Name Relationship Address Phone CAL, CATY Personal Relationship Unknown Unava ilable CAL, CATY Personal Relationship Unknown Unava ilable CAL, CATY Personal Relationship Unknown Unava ilable CAL, BRANDON Personal Relationship Unknown Unavai lable CAL, BRANDON mother Unknown Unavailable CAL, BRANDON Personal Relationship Unknown Unavai lable CAL, CATY Personal Relationship Unknown Unava ilable Care Team Providers Care Self Contained Behavior Unit Teacher Name Role Phone Po Marimar REGALADO Primary Care Physician [phone] En[facility] Date(s): 02/16/24 - 03/17/24 [facility] [address] [place] [address] Encounter Type: Triage Allergies, Adverse Reactions, Alerts [...] On 12/17/23 [facility] DX: M79.2 neuropathic pain lower extrem, G90.529 [...] Maintenance, 06/03/23 9:29:00 AM EST, [facility], 170, cm, 04/07/23 14:45:00 EST, [...] each, 0 Refills, Maintenance, 04/17/21 8:19:00 AM [facility], [facility], For personal and community harm reduction, 170.18, cm, 02/05/21 15:22:00 EDT, Height Start Date: 04/17/21 Status: Ordered Quantity: 2.0 Unit: each Repeat number: 1 oxyCODONE 15 mg oral tablet See Instructions, 0.5-1 tab po q 4hrs, MAX 6, # 84 tablet, 0 Refills, Maintenance, 03/11/24 4:21:00 PM [facility], [facility], Partial fill upon patient request, [...] Status: Ordered Repeat number: 1 Vitamin D 68743 iu oral capsule 1, capsule, By Mouth, [...] Index: 51% (23/45) severe disability and Updated [place] Back Pain Disability Scale: 50, both on 01/27/23 4Updated Oswestry Disability Index: 68% ( crippled ); updated [place] Back Pain Disability Scale score: 77; both on 10/15/21 5Updated Oswestry Disability Index: 66% ( crippled ); updated [place] Back Pain Disability Scale score: 72 both on 08/06/20 6Updated Oswestry Disability Index: 70% crippled and [place] Back Pain Disability Scale: 84 on 06/27/2019. 7Updated Oswestry Disability Index: 49% (22/45) severe disability in 07/27/18. Updated [place] Back Pain Disability Scale: 66 on 07/27/18 8Updated Oswestry Disability Index: 76% ( crippled ) on 06/02/17; updated [place] Back Pain Disability Scale score: 81 on 06/02/17 9Updated Oswestry: 71% crippled (32/45) on 02/04/16. Updated [place] Disability Scale: 80 on 02/04/16. 10Updated Oswestry [...] Name: Tex Benito MD, Diaz Dodge Position: [facility] Anesthesiology MD Member Role: Lifetime Consulting Physician Address: [address] [facility] [place] [address]- [place] Telecom: Name: Marimar Kimble MD Position: Reference Physician Member Role: PCP Address: [address] [place] [address]- Telecom: Care Team Related Persons Name: BRANDON MCCALL Insurance Providers Guarantor name: CTAY MCCALL Health Plan Information #: 1 Payer: MEDICARE PART B OUTPT Member Number: NA Policy Number: NA Group Number: NA Health Plan Information #: 2 Payer: [facility] Member Number: NA Policy Number: NA Group Number: NA
== END 2024-03-21 14:34 | disposition home or self-care (01) ==
LOC: HO.XRAY 14:33
PROVIDERS: PCP Internal Medicine; Visit Provider Internal Medicine
DX: M79.641 Pain in right hand (principal); M79.642 Pain in left hand; M25.511 Pain in right shoulder; M79.671 Pain in right foot
CPT/HCPCS: 73030; 73120; 73620

== ENCOUNTER 2024-03-28 14:32 | Outpatient (AMB) | payer MEDICARE, MEDICAID, SELFPAY ==
--- NOTE | 2024-03-28 14:42 | A.OFFPC_ITS ---
Vital Signs 03/28/24 14:43 Height 5 ft 6 in BMI Reason not done Patient refused/unable BP 128/70 Blood Pressure Location Lt brachial Position Sitting Pulse 86 Pulse Source Pulse Oximeter Pulse Oximetry (%) 96 Oxygen Delivery Method Room Air Intake Visit Reasons: 3 month f/u Allergies ketamine [KETAMINE] Allergy (Severe, Verified 03/28/24 14:44) FULL BODY MUSCLE SPASM, CONTRACTIONS, increase in pain - severe sensitivity levofloxacin [From LEVAQUIN] Allergy (Severe, Verified 03/28/24 14:44) FLU SYMPTOMS sulfamethoxazole [From BACTRIM DS] Allergy (Severe, Verified 03/28/24 14:44) FLU LIKE SYMPTOMS metoprolol [METOPROLOL] Allergy (Unknown, Verified 03/28/24 14:44) MUSCLE CONTRACTION,TREMORS Sulfa (Sulfonamide Antibiotics) [SULFA (SULFONAMIDE ANTIBIOTICS)] Allergy (Unknown, Verified 03/28/24 14:44) UNKNOWN hydrochlorothiazide Adverse Reaction (Unknown, Verified 03/28/24 14:44) Unknown From TORECAN Allergy (Unknown, Uncoded 03/28/24 14:44) UNKNOWN steri strips Adverse Reaction (Unknown, Uncoded 03/28/24 14:44) skin irritation Tobacco use date assessed: 06/12/23 Dental Screening Dental Screen Date: 03/28/24 Did you have a dental visit in the last 12 months?: No Did you have a dental problem in the last 6 months where you did not have access to dental care?: No Was dental information given to patient?: No HPI 3 month f/u HPI Details The patient is a 48-year-old female presenting with chronic pain. She reports ongoing issues with musculoskeletal pain, particularly in the hands. This has been a recurring problem over the last three years, with multiple treatment attempts made by Dr. Nice. Various medications have been trialed without significant success. Additionally, she experiences pain, pulsing sensati on, and muscular discomfort in her fingers, which are hard to bend and frequently go numb, especially upon waking. These episodes sometimes feel like pins and needles, although the pulsing, muscular pain is more concerning to her. The patient has a history of osteoarthritis which impacts her daily activities and quality of life. She also suffers from GERD and typically sleeps on her back to manage symptoms. Her smoking habits, which are slowly reducing, are acknowledged to have health impacts, particularly with the pain and respiratory conditions. She reports stable liver and kidney parameters from recent bloodwork, though her parathyroid hormone was slightly elevated. Her bowel movements have improved without the use of famotidine. She expects to receive X- ray results concerning her hands, shoulder, and foot soon, but these are pending. Family history includes recent COVID-19 illness of parents which altered her appointments. [facility] Medical History (Updated 12/14/23 @ 13:49 by Marimar Kimble MD) GERD (gastroesophageal reflux disease) Rash Incisional breast wound Thyroid nodule Right distal ulnar fracture Ischemic colitis Hypercholesterolemia Tobacco abuse Overactive bladder Migraine Allergic rhinitis Primary hyperparathyroidism Hypertension Psoriasis Polycystic ovarian disease Hypothyroidism Reflex sympathetic dystrophy Surgical History History of excision of mass (11/06/22) Hx of arthroscopy (2015) Hx of removal of cyst (2007) History of cholecystectomy (2010) History of oral surgery (2008) History of incision and drainage (2007) History of right knee surgery (2001) History of removal of cyst (1999) History of arthroscopy of right knee (1997) History of placement of ear tubes (1977) Family History Mother History of breast cancer, Onset Age: 45 Maternal Grandmother History of breast cancer, Onset Age: 60 Paternal Uncle Substance abuse Schizophrenia Paternal Grandfather Substance abuse Maternal Grandfather Substance abuse Other Mental health disorder Social History Housing: Apartment Alcohol intake: never Patient Tobacco Use Status: Current everyday Tobacco user Tobacco use type: Cigarette Cigarettes Per Day: 15 Years Smoked: 6 e-Cigarette/Vaping Use: Never Used Second Hand Smoke Exposure: No Current occupational status: unemployed Current occupation: rt hand Cognitive needs: No Hearing needs: No Vision needs: Yes Questionnaire PHQ-9 Over the last 2 weeks, how often have you been bothered by any of the following problems? 1. Little interest or pleasure in doing things: more than half the days 2. Feeling down, depressed, or hopeless: several days 3. Trouble falling or staying asleep, or sleeping too much: nearly every day 4. Feeling tired or having little energy: nearly every day 5. Poor appetite or overeating: nearly every day 6. Feeling bad about yourself - or that you are a failure or have let yourself or your family down: not at all 7. Trouble concentrating on things, such as reading the newspaper or watching television: several days 8. Moving or speaking so slowly that other people could have noticed. Or the opposite - being so fidgety or restless that you have been moving around a lot more than usual: several days 9. Thoughts that you would be better off or of hurting yourself in some way: not at all Total score: 14 Depression Screening Interpretation: Negative Depression Screening Done: Yes Source: Developed by Drs. Christoph Borden, Fozia Segovia, Kota Sage and colleagues, with an educational charlotte from [employer]. Thrive Questionnaire Date Thrive assessed: 12/14/23 AUDIT C Alcohol Use Questionnaire (AUDIT-C) 1. How often do you have a drink containing alcohol?: Never 3. How often do you have six or more drinks on one occasion?: Never Total Score: 0 SHILPA-7 AMB Questionnaire SHILPA-7 Date SHILPA - 7 assessed: 12/14/23 Source: Developed by Drs. Christoph Borden, Fozia Segovia, Kota Sage and colleagues, with an educational charlotte from [employer]. Physical exam (Primary Care) Vital Signs: Last Vital Signs Pulse 86 03/28/24 14:43 BP 128/70 03/28/24 14:43 Pulse Ox 96 03/28/24 14:43 Oxygen Delivery Method Room Air 03/28/24 14:43 Care Plan Goal for BP management: melceio wheelchair Tobacco/Smoking Status: Tobacco use Status Tobacco use date assessed 06/12/23 03/28/24 14:45 Patient Tobacco Use Status Current everyday Tobacco 03/28/24 14:45 Tobacco use type Cigarette 03/28/24 14:45 e-Cigarette/Vaping Use Never Used 03/28/24 14:45 PHQ-9: PHQ-9 Score PHQ-9: Total score 14 03/28/24 15:23 Depression Screening Interpretation: Negative Thrive Assessment: Date of Thrive Assessment Date Thrive assessed 12/14/23 03/28/24 14:45 Const General: alert; No acute distress Eyes Conjunctivae: conjunctivae normal Resp Auscultation: clear to auscultation bilaterally Cardio Rate: regular rate Rhythm: regular rhythm GI Inspection: Yes normal to inspection Coding Level of Care Code Est Pt Level 4 (70030) Diagnoses Tobacco abuse Z72.0 Reflex sympathetic dystrophy G90.50 Hypercholesterolemia E78.00 Essential hypertension I10 Hypertension type: essential hypertension Acquired hypothyroidism E03.9 Hypothyroidism type: acquired Assessment & Plan Assessment & Plan (1) Tobacco abuse: Code(s): Z72.0 - Tobacco use Category: Medical (2) Reflex sympathetic dystrophy: Comment: R leg type 1, L leg type 2 s/p lateral release and medial OR 12/2001 secondary to knee weakness . arms weakness also R leg, lower back and oral , sc implant and removal 2002 problem pain R leg, L arm and perioral area 08/2020 Code(s): G90.50 - Complex regional pain syndrome I, unspecified Category: Medical (3) Hypercholesterolemia: Code(s): E78.00 - Pure hypercholesterolemia, unspecified Category: Medical (4) Hypertension: Code(s): I10 - Essential (primary) hypertension Category: Medical Qualifiers: Hypertension type: essential hypertension Qualified Code(s): I10 - Essential (primary) hypertension (5) Hypothyroidism: Code(s): E03.9 - Hypothyroidism, unspecified Category: Medical Qualifiers: Hypothyroidism type: acquired Qualified Code(s): E03.9 - Hypothyroidism, unspecified Plan - Continue managing atrial fibrillation with current medication regimen; follow- up on INR results after dosage adjustment. - Recommend reducing smoking for overall health benefits, and continue to monitor pulmonary and cardiovascular status. - Await radiology results for further assessment of musculoskeletal pain and consider anti-inflammatory therapies, such as Voltaren gel, as safer alternatives to oral NSAIDs for symptomatic relief. - Continue observation of parathyroid hormone levels with a possible endocrinology referral if significant elevation persists. - Maintain GERD management with lifestyle modifications; assess need for pharmacological intervention if symptoms escalate. - Review results from pain management consultations and consider non- pharmacological interventions or advanced pain therapies if standard treatments fail. - Reinforce stable lifestyle modifications and regular assessments to monitor chronic conditions.
[2024-03-28 14:43] VITALS: BP 128/70; PULSE 86; O2SAT 96
== END 2024-03-28 15:37 | disposition home or self-care (01) ==
PROVIDERS: PCP Internal Medicine; Visit Provider Internal Medicine
DX: Z72.0 Tobacco use (principal); G90.50 Complex regional pain syndrome I, unspecified; E78.00 Pure hypercholesterolemia, unspecified; I10 Essential (primary) hypertension; E03.9 Hypothyroidism, unspecified

== ENCOUNTER → 2024-03-28 14:32 | Outpatient (BNVA) | payer MEDICARE, MEDICAID, SELFPAY | PROVIDERS: PCP Internal Medicine; Visit Provider Internal Medicine | DX: G90.50 Complex regional pain syndrome I, unspecified (principal); E78.00 Pure hypercholesterolemia, unspecified; I10 Essential (primary) hypertension; E03.9 Hypothyroidism, unspecified; Z72.0 Tobacco use | CPT/HCPCS: 96127; 99212 ==

== ENCOUNTER 2024-06-28 14:22 | Outpatient (AMB) | payer MEDICARE, MEDICAID, SELFPAY ==
--- NOTE | 2024-06-28 14:25 | A.OFFPC_ITS ---
Vital Signs 06/28/24 14:27 Height 5 ft 6 in Weight 233 lb BMI 37.6 BP 136/80 Blood Pressure Location Lt brachial Position Sitting Pulse 76 Pulse Source Pulse Oximeter Pulse Oximetry (%) 97 Oxygen Delivery Method Room Air Intake Visit Reasons: 3mth f/u Allergies ketamine [KETAMINE] Allergy (Severe, Verified 06/28/24 14:28) FULL BODY MUSCLE SPASM, CONTRACTIONS, increase in pain - severe sensitivity levofloxacin [From LEVAQUIN] Allergy (Severe, Verified 06/28/24 14:28) FLU SYMPTOMS sulfamethoxazole [From BACTRIM DS] Allergy (Severe, Verified 06/28/24 14:28) FLU LIKE SYMPTOMS metoprolol [METOPROLOL] Allergy (Unknown, Verified 06/28/24 14:28) MUSCLE CONTRACTION,TREMORS Sulfa (Sulfonamide Antibiotics) [SULFA (SULFONAMIDE ANTIBIOTICS)] Allergy (Unknown, Verified 06/28/24 14:28) UNKNOWN hydrochlorothiazide Adverse Reaction (Unknown, Verified 06/28/24 14:28) Unknown From TORECAN Allergy (Unknown, Uncoded 06/28/24 14:28) UNKNOWN steri strips Adverse Reaction (Unknown, Uncoded 06/28/24 14:28) skin irritation Medication List - Last Reconciled 06/28/24 by Marimar Kimble MD amitriptyline 25 mg PO BEDTIME 90 days amlodipine (Norvasc) 10 mg PO DAILY blood pressure monitor As directed cholecalciferol (vitamin D3) 1,250 mcg PO QWEEK 90 days folic acid 1 mg PO DAILY 90 days levothyroxine 112 mcg PO DAILY 90 days montelukast 10 mg PO BEDTIME propranolol ER 60 mg PO BEDTIME sertraline 12.5 mg (1/2 x 25 mg) PO DAILY 90 days zolpidem (Ambien) 5 mg PO BEDTIME PRN Tobacco use date assessed: 06/28/24 Dental Screening Dental Screen Date: 06/28/24 Did you have a dental visit in the last 12 months?: No Did you have a dental problem in the last 6 months where you did not have access to dental care?: No Was dental information given to patient?: Patient has dentist [facility] Medical History (Updated 12/14/23 @ 13:49 by Marimar Kimble MD) GERD (gastroesophageal reflux disease) Rash Incisional breast wound Thyroid nodule Right distal ulnar fracture Ischemic colitis Hypercholesterolemia Tobacco abuse Overactive bladder Migraine Allergic rhinitis Primary hyperparathyroidism Hypertension Psoriasis Polycystic ovarian disease Hypothyroidism Reflex sympathetic dystrophy Surgical History History of excision of mass (11/06/22) Hx of arthroscopy (2015) Hx of removal of cyst (2007) History of cholecystectomy (2010) History of oral surgery (2008) History of incision and drainage (2007) History of right knee surgery (2001) History of removal of cyst (1999) History of arthroscopy of right knee (1997) History of placement of ear tubes (1977) Family History Mother History of breast cancer, Onset Age: 45 Maternal Grandmother History of breast cancer, Onset Age: 60 Paternal Uncle Substance abuse Schizophrenia Paternal Grandfather Substance abuse Maternal Grandfather Substance abuse Other Mental health disorder Social History Housing: Apartment Alcohol intake: never Patient Tobacco Use Status: Current everyday Tobacco user Tobacco use type: Cigarette Cigarettes Per Day: 7 Years Smoked: 6 e-Cigarette/Vaping Use: Never Used Second Hand Smoke Exposure: No Current occupational status: unemployed Current occupation: rt hand Cognitive needs: No Hearing needs: No Vision needs: Yes Questionnaire PHQ-9 Over the last 2 weeks, how often have you been bothered by any of the following problems? 1. Little interest or pleasure in doing things: more than half the days 2. Feeling down, depressed, or hopeless: several days 3. Trouble falling or staying asleep, or sleeping too much: nearly every day 4. Feeling tired or having little energy: nearly every day 5. Poor appetite or overeating: nearly every day 6. Feeling bad about yourself - or that you are a failure or have let yourself or your family down: not at all 7. Trouble concentrating on things, such as reading the newspaper or watching television: several days 8. Moving or speaking so slowly that other people could have noticed. Or the opposite - being so fidgety or restless that you have been moving around a lot more than usual: several days 9. Thoughts that you would be better off or of hurting yourself in some way: not at all Total score: 14 Depression Screening Interpretation: Positive Depression Screening Done: Yes 25119 - PHQ-9 Billing: Yes Source: Developed by Drs. Christoph Borden, Kota Zimmerman and colleagues, with an educational charlotte from [employer].. Thrive Questionnaire Date Thrive assessed: 06/28/24 I am a: Patient What is your living situation today?: I have a steady place to live Within the past 12 months, did the food you bought not last and you didn't have the money to get more?: Never true Within the past 12 months, did you worry whether your food would run out before you got money to buy more?: Never true Do you have trouble paying for medicines?: No Do you have trouble getting transportation to medical appointments?: No Do you have trouble paying your heating and electricity bill?: No Do you have trouble taking care of your child, family member or friend?: No Do you have trouble with day-to-day activities such as bathing, preparing meals, shopping, managing finances, etc.?: No Are you currently unemployed and looking for a job?: No Are you interested in more education?: No Currently or been in a relationship where the following occur: No concerns reported THRIVE Score: 0 AUDIT C Alcohol Use Questionnaire (AUDIT-C) 3. How often do you have six or more drinks on one occasion?: Never Total Score: 0 SHILPA-7 AMB Questionnaire SHILPA-7 Date SHILPA - 7 assessed: 06/28/24 Feeling nervous, anxious, or on edge: 0 = Not at all Not being able to stop or control worryin = Not at all Worrying too much about different things: 0 = Not at all Trouble relaxin = Not at all Being so restless that it is hard to sit still: 0 = Not at all Becoming easily annoyed or irritable: 0 = Not at all Feeling afraid as if something awful might happen: 0 = Not at all Total SHILPA-7 score (0-4 normal; 5-9 mild; 10-14 moderate; 15-21 severe): 0 Source: Developed by Drs. Christoph Borden, Kota Zimmerman and colleagues, with an educational charlotte from [employer] Physical exam (Primary Care) Vital Signs: Last Vital Signs Pulse 76 06/28/24 14:27 BP 136/80 06/28/24 14:27 Pulse Ox 97 06/28/24 14:27 Oxygen Delivery Method Room Air 06/28/24 14:27 BMI result Body Mass Index 37.6 Tobacco/Smoking Status: Tobacco use Status Tobacco use date assessed 06/28/24 06/28/24 14:37 Patient Tobacco Use Status Current everyday Tobacco 06/28/24 14:26 Tobacco use type Cigarette 06/28/24 14:26 e-Cigarette/Vaping Use Never Used 06/28/24 14:26 PHQ-9: PHQ-9 Score PHQ-9: Total score 14 06/28/24 14:50 Depression Screening Interpretation: Positive Thrive Assessment: Date of Thrive Assessment Date Thrive assessed 06/28/24 06/28/24 14:37 Currently or been in a relationship where the following occur: No concerns reported Const General: alert; No acute distress Eyes Conjunctivae: conjunctivae normal Resp Auscultation: clear to auscultation bilaterally Cardio Rate: regular rate Rhythm: regular rhythm GI Inspection: Yes normal to inspection Coding Level of Care Code Est Pt Level 4 (69561) Complex EM visit Add On G2211 Diagnoses Tobacco abuse Z72.0 Reflex sympathetic dystrophy G90.50 Essential hypertension I10 Hypertension type: essential hypertension Acquired hypothyroidism E03.9 Hypothyroidism type: acquired Migraine without aura and without status migrainosus, not intractable G43.009 Intractability: not intractable Migraine type: without aura Status migrainosus presence: without status migrainosus Hypercholesterolemia E78.00 Additional Codes PHQ-9 - 11846 - PHQ-9 Billing: Yes ([id number]) Assessment & Plan Assessment & Plan (1) Tobacco abuse: Code(s): Z72.0 - Tobacco use Category: Medical Plan: Patient is strongly advised to stop smoking! decreasing smoking to 7 a day (2) Reflex sympathetic dystrophy: Comment: R leg type 1, L leg type 2 s/p lateral release and medial OR 12/2001 secondary to knee weakness . arms weakness also R leg, lower back and oral , sc implant and removal 2002 problem pain R leg, L arm and perioral area 08/2020 Code(s): G90.50 - Complex regional pain syndrome I, unspecified Category: Medical Plan: Patient is being managed by pain management and has recommended quick taper of oxycodone while escalating oxcarbazepine and eliminating amitriptyline (3) Hypertension: Code(s): I10 - Essential (primary) hypertension Category: Medical Qualifiers: Hypertension type: essential hypertension Qualified Code(s): I10 - Essential (primary) hypertension Plan: Continue with blood pressure medication. Decrease salt intake and exercise on amlodipine propranolol (4) Hypothyroidism: Code(s): E03.9 - Hypothyroidism, unspecified Category: Medical Qualifiers: Hypothyroidism type: acquired Qualified Code(s): E03.9 - Hypothyroidism, unspecified Plan: Continue with thyroid medication (5) Migraine: Code(s): G43.909 - Migraine, unspecified, not intractable, without status migrainosus Category: Medical Qualifiers: Intractability: not intractable Migraine type: without aura Status migrainosus presence: without status migrainosus Qualified Code(s): G43.009 - Migraine without aura, not intractable, without status migrainosus Plan: Patient is advised to eat healthy, keep well hydrated, keep active and have adequate sleep. (6) Hypercholesterolemia: Code(s): E78.00 - Pure hypercholesterolemia, unspecified Category: Medical Plan: Avoid fried foods, chicken skin, eggs, butter margarine, pastries and meat. Be it pork or beef they have a lot of cholesterol Plan History of Present Illness The patient is a 49-year-old female presenting with a follow-up for chronic pain management and medication review. She has an extensive medical history including hypertension, hypothyroidism, and complex regional pain syndrome primarily affecting her right leg and left arm since 2020. The patient has been undergoing adjustments to her pain management plan, which previously included oxycodone and oxcarbazepine. Patient has been tapered off of opioids. she has encountered significant withdrawal symptoms and generalized pain exacerbation. Insomnia has worsened, prompting a trial of Zolpidem to aid sleep. The rapid weight loss and dehydration are of concern, reported as secondary to the inability to consume sufficient food and liquids. Concurrently, the patient is managing migraine, GERD, PTSD, and hepatic steatosis. Various factors, including lifestyle and reflux symptoms, have impacted her overall health. The patient's smoking habits were addressed, with a reduction from 15 to 7 cigarettes daily due to decreased mobility and pain. Despite discontinuing oxcarbazepine due to adverse withdrawal effects, her pain control remains inadequate with current measures. She experiences a sensation of throat blockage and difficulty swallowing, particularly concerning given her weight loss and history of vomiting. Health Maintenance - Patient has requested shingles vaccine due to previous history and concern of recurrent episodes. - Discussed potential side effects of the shingles vaccine, outlining the two-part series with possible mild illness post-vaccination. - Shingles vaccine to be administered at pharmacy, not available on-site. - Discussed pneumonia vaccine as advisable due to smoking history. - Reminder for upcoming fasting blood work, including thyroid level checks. Social History - Tobacco use: Smokes 7 cigarettes per day, reduced from 15 per day. - Weight management: Reported 30-pound weight loss related to decreased appetite and nausea; dehydration concerns due to inadequate fluid intake. Review of Systems - General: Reports significant weight loss, approximately 30 pounds over one month. - Respiratory: Reports sensation of blocked throat and difficulty swallowing. - Musculoskeletal: Reports joint pain in all joints, knee subluxation. - Neurological: Reports insomnia. - Gastrointestinal: Denies current diarrhea. Physical Exam Results Plan The focus of today's visit was on addressing the chronic pain management and withdrawal symptoms associated with tapering off oxycodone. Given the lack of efficacy and adverse effects with oxcarbazepine, its use was discontinued. Zolpidem was prescribed to mitigate insomnia, advising the patient to begin with a half-tablet dose. We reviewed the necessity of reducing tobacco use, with encouragement to continue efforts toward cessation. Concerns regarding GERD and throat discomfort were discussed with a conservative approach initially. Preventative health measures, such as the shingles vaccine, were emphasized. The patient is advised on the importance of future pneumonia vaccination, given her smoking history. A follow-up for blood work is scheduled to monitor thyroid function, among other routine evaluations. Patient was informed and verbally consented to the use of an ambient scribe for clinic note documentation during this visit. Discussion Notes During the visit, I discussed the ongoing pain management strategy with the patient, acknowledging the challenging withdrawal symptoms encountered. The rationale behind discontinuing oxcarbazepine and the tapering off oxycodone and patient is off. was reviewed in detail, emphasizing the need to find a sustainable pain management solution. I also addressed sleep disturbances and initiated Zolpidem, highlighting the importance of monitoring any side effects. The possible need for further investigations into her throat discomfort and swallowing difficulty was mentioned, reiterating that resolution of reflux symptoms could alleviate these issues. We discussed health maintenance, advocating for the shingles vaccine. The importance of lifestyle modifications, particularly smoking cessation as a means to improve respiratory health and mitigate other risks, was emphasized. Close monitoring and follow-up were arranged to reassess her overall condition and response to the current treatment regimen. Patient Instructions - patient has tapered to off already on the narcotic - Begin taking Zolpidem as instructed for insomnia, starting with a half-tablet. - Continue efforts to reduce tobacco use, aiming for complete cessation. - Schedule and receive the shingles vaccine at the pharmacy. - Monitor for any worsening throat symptoms or swallowing difficulty. - Follow up for fasting blood work, including thyroid function tests. - Contact for any concerns or if symptoms significantly worsen. Medications: Refilled cholecalciferol (vitamin D3) 1,250 mcg PO QWEEK 13 caps 2RF 90 days E55.9 - Vitamin D deficiency, unspecified
[2024-06-28 14:27] VITALS: BP 136/80; PULSE 76; O2SAT 97; BMI 37.6
--- OUTSIDE RECORDS SUMMARY | 2024-06-28 18:02 | XMS_ITS | Continuity of Care Document ---
Author Organization [facility] Address [address] [place] [address]- [facility] Name Relationship Address Phone CAL, CATY Personal Relationship Unknown Unava ilable CAL, CATY Personal Relationship Unknown Unava ilable CAL, CATY Personal Relationship Unknown Unava ilable CAL, BRANDON Personal Relationship Unknown Unavai lable CAL, BRANDON mother Unknown Unavailable CAL, BRANDON Personal Relationship Unknown Unavai lable CAL, CATY Personal Relationship Unknown Unava ilable Care Team Providers Care Highway Engineering Technician Name Role Phone Po Marimar REGALADO Primary Care Physician [id number] Date(s): 05/02/24 - 06/23/[facility] [address] [place] [id number] Attending Physician: Diaz Nice Jr, MD Admitting Physician: Diaz Nice Jr, MD Encounter Type: Pre-OutPatient One Time Allergies, Adverse Reactions, Alerts Substance Criticality Severity [...] On 12/17/23 Pharmacy I: [facility] DX: M79.2 neuropathic pain lower extrem, G90.529 CRPS, 12/17/23 4:25:00 PM EDT, Supply Start Date: 12/17/23 Status: Ordered Quantity: 1.0 Unit: each Repeat number: 1 diazepam 2 mg oral tablet See Instructions, 1-3 tabs po TID to max of 6 tabs/day prn pain/muscle spasms. After 2 days may increase to max of 9 tabs/day. Remain off all oxycodone., # 48 tablet, Refills 0, Tot. Refills 0, Maintenance, 06/02/24 4:47:00 PM EST, Instructions Replace Required Details, Route to Pharmacy Electronically, [facility], 170, cm, 05/30/24 15:32:00 EST, Height Start Date: 06/02/24 Status: Ordered Quantity: 48.0 Unit: tablet Repeat number: 1 Excedrin Migraine By Mouth, [...] Quantity: 30.0 Unit: tablet Repeat number: 1 Levothroid 0.112 [...] each, 0 Refills, Maintenance, 04/17/21 8:19:00 AM EST, [place], [facility], For personal and community harm reduction, 170.18, cm, 02/05/21 15:22:00 EDT, Height Start Date: 04/17/21 Status: Ordered Quantity: 2.0 Unit: each Repeat number: 1 OXcarbazepine 300 mg oral tablet See Instructions, 1/2 tab po daily for 3 days, increase by 1/2 to 1 tab every 3 days until at 4 tabs po bid, # 90 tablet, Refills 0, Tot. Refills 0, Maintenance, 05/02/24 1:06:00 PM EST, Instructions Replace Required Details, Route to Pharmacy Electronically, [facility], Partial fill upon patient request if the prescription is for a schedule II opioid drug., 170, cm, 05/02/24 11:33:00 EST, Height Start Date: 05/02/24 Status: Ordered Quantity: 90.0 Unit: tablet Repeat number: 1 oxyCODONE 10 mg oral tablet See Instructions, STOP 30 mg tabs. 8.5 tabs/day in divided doses for 3 days, taper by 1/2 tab every3 days until at 6 tabs po daily, # 131 tablet, 0 Refills, Maintenance, 05/02/24 1:28:00 PM EST, [facility], Partial fill upon patient request. Plannning on tapering off opioid using 10 mg tablets for ease of taper, 170, cm, 05/02/24 11:33:00 EST, Height Start Date: 05/02/24 Status: Ordered Quantity: 131.0 Unit: tablet Repeat number: 1 Indication: Neuralgia and neuritis, unspecified Prevalite Packets 4 g/5.5 g oral powder for reconstitution = 4 Gm, By Mouth, 3 times a day, Take AC and qhs PRN diarrhea.Mix 1 scoopful or 1 packet in 2 to 6 oz of water, non-carbonated drink or pulpy fruit juice; stir well and drink., # 60 pack/packet, 1 Refills, Maintenance, 05/30/24 4:52:00 PM EST, [facility], 170, cm, 05/30/24 15:32:00 EST, Height Start Date: 05/30/24 Status: Ordered Quantity: 60.0 Unit: pack/packet Repeat number: 2 propranolol 60 mg oral capsule, extended release [...] Status: Ordered Repeat number: 1 Vitamin D 83624 iu oral capsule 1, capsule, By Mouth, [...] of antidepressant drug: duloxetine 2 Confirmed Active Anticonvulsant causing adverse effect in therapeutic use: lamotrigine 3 Confirmed 2023 Active Bony pelvic pain: marked tenderness at [...] Active Limitation of activities due to disability 4, 5, 6, 7, 8, 9, 10, 11, 12, 13 Confirmed Active Liver enzymes abnormal Confirmed Active Methadone causing adverse effects in therapeutic use 14 Confirmed Active Depressive disorder due to separate medical condition Confirmed Active Myalgia Confirmed Active Nausea 15 Confirmed Active Neuropathic pain, lower extremity 16 Confirmed Active Neuropathic pain: trunk 17 Confirmed Active Neuropathic pain, upper extremity 18 Confirmed Active Opioids causing adverse effect in therapeutic use: morphine 19 Confirmed Active Opioids causing adverse effect in therapeutic use: oxycodone 20 Confirmed Active Oral pain Confirmed Active Opioids causing adverse effects in therapeutic use: buprenorphine 21 Confirmed Active Wrist pain, left Confirmed Active PCOS - Polycystic ovarian syndrome Confirmed Active Post-traumatic stress disorder Confirmed Active Risk assessment: Adverse Childhood Experience 22 Confirmed Active Severe obesity (BMI 35.0-39.9) with [...] Dose reduced. Trial luis alberto ndoned 12/24/20. 3Retrial of lamotrigine prescribed 12/17/23. & begun mid Dec. Very slow escal. assoc'd w chge incharacter of left sided pn; 2 days on 100mg/day, incr pn in trunk & extremities bilat. as well as neck stiffness, whole head pn & photophobia. Trial aborted on/about 02/08/24. 4Updated Oswestry Disability Index: 70% ( crippled ); updated [facility] Back Pain Disability Scale score: 65; both on 03/21/24 5Updated Oswestry Disability Index: 51% (23/45) severe disability and Updated [place] Back Pain Disability Scale: 50, both on 01/27/23 6Updated Oswestry Disability Index: 68% ( crippled ); updated [place] Back Pain Disability Scale score: 77; both on 10/15/21 7Updated Oswestry Disability Index: 66% ( crippled ); updated [place] Back Pain Disability Scale score: 72 both on 08/06/20 8Updated Oswestry Disability Index: 70% crippled and [place] Back Pain Disability Scale: 84 on 06/27/2019. 9Updated Oswestry Disability Index: 49% (22/45) severe disability in 07/27/18. Updated [place] Back Pain Disability Scale: 66 on 07/27/18 10Updated Oswestry Disability Index: 76% ( crippled ) on 06/02/17; updated [facility] Back Pain Disability Scale score: 81 on 06/02/17 11Updated Oswestry: 71% crippled (32/45) on 02/04/16. Updated [place] Disability Scale: 80 on 02/04/16. 12Updated Oswestry Disability Index: 70% ( crippled ) on 12/19/14; updated [place] Back Pain Disability Scale score: 65 on 12/19/14. 13Initial Oswestry Disability Index abigail 2.0: 72% ( Crippled ) 04/01/10; Updated Oswestry: 56% ( severe disability ) on 01/23/2011; Updated Oswestry: 62% ( crippled ) on 10/20/2013 14Trial of methadone begun 03/08/19. On 03/14 reported nausea, vertigo - unless I am laying down I am sick; on meclizine 25 mg TID, methadone 5mg 2/1/0.5. Trialed scopolamine. On 03/22/19, given persistent nausea, dizziness, moodiness, constipation as well as muscle aches, trial abandoned. 15at least in part, opioid treatment related 16In setting of hisory of complex regional pain syndrome 2, lower extremity, right 17In the setting of history of complex regional pain syndrome 1, involving the trunk 18In the setting of history of complex regional pain syndrome 1, upper extremity, left 19Immediate release morphine trialed 12/03/2012 to 12/07/12. Morphine to a dose of 360mg/day resulted inless pain control than 96 to 112mg hydromorphone/day and was associated with abdominal pain, severeheadache and vertigo. 20Trial of i.r. oxycodone begun 12/14/2012. Rotation to oxycodone was initially associated with improved pain control but with continued use, analgesic efficacy diminished & persistent nausea/vomiting and diarrhea led to the abandonment of oxycodone on 02/10/2013.. 21Transdermal buprenorphine begun 12/18/2011. Treatment with the 20mcg/hr patch in addition to hydromorphone was associated with improved pain reduction; AEs including rash, pruritus, & skin breakdown at the patch site; chest pain; altered mood (aggression, anger). Transdermal buprenorphine d/c'd 02/01/12. 22ACE score: 6 on 02/11/17 Social History Social History Type Response Smoking Status 10 or more cigarette s (1/2 pack or more)/day in last 30 days; Type: Cigarettes; Type: e-cigarettes entered on: 07/14/22 Sex Sex Representation Female (finding) Patient Care team information Care Team Personnel Name: Diaz Nice Jr, MD Position: S Anesthesiology MD Member Role: Lifetime Consulting Physician Address: [address] [place] [address]- Telecom: Name: Marimar Kimble MD Position: Reference Physician Member Role: PCP Address: [address] [place] [id number] Telecom: Care Team Related Persons Name: BRANDON MCCALL Insurance Providers Guarantor name: CATY CAL Health Plan Information #: 1 Payer: MEDICARE PART B OUTPT Member Number: [id number] Policy Number: NA Group Number: NA Health Plan Information #: 2 Payer: [facility] Member Number: [id number] Policy Number: NA Group Number: NA
--- OUTSIDE RECORDS SUMMARY | 2024-06-28 18:03 | XMS_ITS | Continuity of Care Document ---
Author Organization [facility] Address [address] [place] [phone] [facility] Name Relationship Address Phone CAL, CATY Personal Relationship Unknown Unava ilable CAL, CATY Personal Relationship Unknown Unava ilable CAL, CATY Personal Relationship Unknown Unava ilable CAL, BRANDON Personal Relationship Unknown Unavai lable CAL, BRANDON mother Unknown Unavailable CAL, BRANDON Personal Relationship Unknown Unavai lable CAL, CATY Personal Relationship Unknown Unava ilable Care Team Providers Care Slubber Runner Name Role Phone Po Marimar REGALADO Primary Care Physician [id number] Date(s): 05/23/24 - [facility] [address] [place] [id number] Encounter Type: Triage Allergies, Adverse Reactions, [...] On 12/17/23 Pharmacy I: [facility] [place] DX: M79.2 neuropathic pain lower extrem, G90.529 [...] 0 Refills, Maintenance, 04/17/21 8:19:00 AM EST, [place], [facility], For personal and community [...] Status: Ordered Repeat number: 1 Vitamin D 15441 iu oral capsule 1, capsule, By Mouth, [...] Disability Index: 70% ( crippled ); updated [facility] Back Pain Disability Scale score: 65; both on 03/21/24 5Updated Oswestry Disability Index: 51% (23/45) severe disability and Updated [place] Back Pain Disability Scale: 50, both on 01/27/23 6Updated Oswestry Disability Index: 68% ( crippled ); updated [place] Back Pain Disability Scale score: 77; both on 10/15/21 7Updated Oswestry Disability Index: 66% ( crippled ); updated [place] Back Pain Disability Scale score: 72 both on 08/06/20 8Updated Oswestry Disability Index: 70% crippled and [place] Back Pain Disability Scale: 84 on 06/27/2019. 9Updated Oswestry Disability Index: 49% (22/45) severe disability in 07/27/18. Updated [place] Back Pain Disability Scale: 66 on 07/27/18 10Updated Oswestry Disability Index: 76% ( crippled ) on 06/02/17; updated [facility] Back Pain Disability Scale score: 81 on 06/02/17 11Updated Oswestry: 71% crippled (32/45) on 02/04/16. Updated [place] Disability Scale: 80 on 02/04/16. 12Updated Oswestry Disability Index: 70% ( crippled ) on 12/19/14; updated [facility] Back Pain Disability Scale score: 65 on [...] MD Member Role: Lifetime Consulting Physician Address: [address] [place] [id number]- Telecom: Name: Marimar Kimble MD Position: Reference Physician Member Role: PCP Address: [address] [place] [address]- Telecom: Care Team Related Persons Name: BRANDON MCCALL Insurance Providers Guarantor name: CATY MCCALL Health Plan Information #: 1 Payer: MEDICARE PART B OUTPT Member Number: NA Policy Number: NA Group Number: NA Health Plan Information #: 2 Payer: [place] Member Number: NA Policy Number: NA Group Number: NA
--- OUTSIDE RECORDS SUMMARY | 2024-06-28 18:03 | XMS_ITS | Continuity of Care Document ---
Author Organization [facility] Address [address] [place] [address]- Care Team Providers Care After School Program Teacher Name Role Phone Po Marimar REGALADO Primary Care Phys[id number] Date[facility]/17/24 - 06/16/[facility] [address] [place] [id number] En[facility] Type: Triage Allergies, Adverse Reactions, Alerts [...] On 12/17/23 Pharmacy I: [facility] DX: M79.2 neuropathic pain lower extrem, [...] 0 Refills, Maintenance, 04/17/21 8:19:00 AM EST, [place], [facility], For personal and community [...] Status: Ordered Repeat number: 1 Vitamin D 75972 iu oral capsule 1, capsule, By Mouth, [...] Disability Index: 70% ( crippled ); updated [facility] Back Pain Disability Scale score: 65; both on 03/21/24 5Updated Oswestry Disability Index: 51% (23/45) severe disability and Updated [place] Back Pain Disability Scale: 50, both on 01/27/23 6Updated Oswestry Disability Index: 68% ( crippled ); updated [place] Back Pain Disability Scale score: 77; both on 10/15/21 7Updated Oswestry Disability Index: 66% ( crippled ); updated [place] Back Pain Disability Scale score: 72 both on 08/06/20 8Updated Oswestry Disability Index: 70% crippled and [place] Back Pain Disability Scale: 84 on 06/27/2019. 9Updated Oswestry Disability Index: 49% (22/45) severe disability in 07/27/18. Updated [place] Back Pain Disability Scale: 66 on 07/27/18 10Updated Oswestry Disability Index: 76% ( crippled ) on 06/02/17; updated [facility] Back Pain Disability Scale score: 81 on 06/02/17 11Updated Oswestry: 71% crippled (32/45) on 02/04/16. Updated [place] Disability Scale: 80 on 02/04/16. 12Updated Oswestry Disability Index: 70% ( crippled ) on 12/19/14; updated [facility] Back Pain Disability Scale score: [...] MD Member Role: Lifetime Consulting Physician Address: [address] [place] [address]- Telecom: Name: Marimar Kimble MD Position: Reference Physician Member Role: PCP Address: [address] [place] [address]- Telecom: Care Team Related Persons Name: BRANDON MCCALL Insurance Providers Guarantor name: CATY MCCALL Health Plan Information #: 1 Payer: MEDICARE PART B OUTPT Member Number: NA Policy Number: NA Group Number: NA Health Plan Information #: 2 Payer: [place] Member Number: NA Policy Number: NA Group Number: NA
== END 2024-06-28 15:07 | disposition home or self-care (01) ==
LOC: HO.HMCH 14:23
PROVIDERS: PCP Internal Medicine; Visit Provider Internal Medicine
DX: Z72.0 Tobacco use (principal); G90.50 Complex regional pain syndrome I, unspecified; I10 Essential (primary) hypertension; E03.9 Hypothyroidism, unspecified; G43.009 Migraine without aura, not intractable, without status migrainosus; E78.00 Pure hypercholesterolemia, unspecified

== ENCOUNTER → 2024-06-28 14:22 | Outpatient (BNVA) | payer MEDICARE, MEDICAID, SELFPAY | PROVIDERS: PCP Internal Medicine; Visit Provider Internal Medicine | DX: I10 Essential (primary) hypertension (principal); E03.9 Hypothyroidism, unspecified; G43.009 Migraine without aura, not intractable, without status migrainosus; E78.00 Pure hypercholesterolemia, unspecified; Z72.0 Tobacco use | CPT/HCPCS: 96127; 99212 ==

== ENCOUNTER 2024-10-18 13:27 | Outpatient (AMB) | payer MEDICARE, MEDICAID, SELFPAY ==
--- NOTE | 2024-10-18 13:29 | MHC.PC.OV ---
Vital Signs 10/18/24 13:30 Height 5 ft 6 in BMI Reason not done Patient refused/unable BP 136/82 Blood Pressure Location Lt brachial Position Sitting Pulse 78 Pulse Source Pulse Oximeter Pulse Oximetry (%) 97 Oxygen Delivery Method Room Air Intake Visit Reasons: tobacco abuse Annual Giving Manager Required: No Accompanied by: Self / Same As Patient Allergies ketamine (KETAMINE) Allergy (Severe, Verified 10/18/24 13:34) FULL BODY MUSCLE SPASM, CONTRACTIONS, increase in pain - severe sensitivity levofloxacin (From LEVAQUIN) Allergy (Severe, Verified 10/18/24 13:34) FLU SYMPTOMS sulfamethoxazole (From BACTRIM DS) Allergy (Severe, Verified 10/18/24 13:34) FLU LIKE SYMPTOMS metoprolol (METOPROLOL) Allergy (Unknown, Verified 10/18/24 13:34) MUSCLE CONTRACTION,TREMORS Sulfa (Sulfonamide Antibiotics) (SULFA (SULFONAMIDE ANTIBIOTICS)) Allergy (Unknown, Verified 10/18/24 13:34) UNKNOWN hydrochlorothiazide Adverse Reaction (Unknown, Verified 10/18/24 13:34) Unknown From TORECAN Allergy (Unknown, Uncoded 06/28/24 14:28) UNKNOWN steri strips Adverse Reaction (Unknown, Uncoded 06/28/24 14:28) skin irritation Tobacco use date assessed: 06/28/24 Dental Screening Dental Screen Date: 10/18/24 Did you have a dental visit in the last 12 months?: No Did you have a dental problem in the last 6 months where you did not have access to dental care?: No Was dental information given to patient?: Patient declined [facility] Medical History (Updated 12/14/23 @ 13:49 by Marimar Kimble MD) GERD (gastroesophageal reflux disease) Rash Incisional breast wound Thyroid nodule Right distal ulnar fracture Ischemic colitis Hypercholesterolemia Tobacco abuse Overactive bladder Migraine Allergic rhinitis Primary hyperparathyroidism Hypertension Psoriasis Polycystic ovarian disease Hypothyroidism Reflex sympathetic dystrophy Surgical History History of excision of mass (11/06/22) Hx of arthroscopy (2015) Hx of removal of cyst (2007) History of cholecystectomy (2010) History of oral surgery (2008) History of incision and drainage (2007) History of right knee surgery (2001) History of removal of cyst (1999) History of arthroscopy of right knee (1997) History of placement of ear tubes (1977) Family History Mother History of breast cancer, Onset Age: 45 Maternal Grandmother History of breast cancer, Onset Age: 60 Paternal Uncle Substance abuse Schizophrenia Paternal Grandfather Substance abuse Maternal Grandfather Substance abuse Other Mental health disorder Social History Housing: Apartment Alcohol intake: never Patient Tobacco Use Status: Current everyday Tobacco user Tobacco use type: Cigarette Cigarettes Per Day: 7 Years Smoked: 6 e-Cigarette/Vaping Use: Never Used Second Hand Smoke Exposure: No service: No Current occupational status: unemployed Current occupation: rt hand Cognitive needs: No Hearing needs: No Vision needs: Yes Questionnaire PHQ-9 Over the last 2 weeks, how often have you been bothered by any of the following problems? 1. Little interest or pleasure in doing things: several days 2. Feeling down, depressed, or hopeless: more than half the days 3. Trouble falling or staying asleep, or sleeping too much: nearly every day 4. Feeling tired or having little energy: nearly every day 5. Poor appetite or overeating: nearly every day 6. Feeling bad about yourself - or that you are a failure or have let yourself or your family down: not at all 7. Trouble concentrating on things, such as reading the newspaper or watching television: more than half the days 8. Moving or speaking so slowly that other people could have noticed. Or the opposite - being so fidgety or restless that you have been moving around a lot more than usual: not at all 9. Thoughts that you would be better off or of hurting yourself in some way: more than half the days Total score: 16 Depression Screening Interpretation: Positive Depression Screening Done: Yes Source: Developed by Drs. Christoph Borden, Fozia Segovia, Kota Sage and colleagues, with an educational charlotte from [employer]. Thrive Questionnaire Date Thrive assessed: 10/18/24 I am a: Patient What is your living situation today?: I have a steady place to live Within the past 12 months, did the food you bought not last and you didn't have the money to get more?: Never true Within the past 12 months, did you worry whether your food would run out before you got money to buy more?: Never true Do you have trouble paying for medicines?: I choose not to answer this question Do you have trouble getting transportation to medical appointments?: No Do you have trouble paying your heating and electricity bill?: No Do you have trouble taking care of your child, family member or friend?: I choose not to answer this question Do you have trouble with day-to-day activities such as bathing, preparing meals, shopping, managing finances, etc.?: Yes Are you currently unemployed and looking for a job?: No Are you interested in more education?: No Please select the resources that you would like help with: None Currently or been in a relationship where the following occur: No concerns reported THRIVE Score: 0 AUDIT C Alcohol Use Questionnaire (AUDIT-C) 1. How often do you have a drink containing alcohol?: Monthly or less 2. How many drinks containing alcohol do you have on a typical day when you are drinking?: 1 or 2 3. How often do you have six or more drinks on one occasion?: Never Total Score: 1 SHILPA-7 AMB Questionnaire SHILPA-7 Date SHILPA - 7 assessed: 10/18/24 Feeling nervous, anxious, or on edge: 3 = Nearly every day Not being able to stop or control worryin = More than half the days Worrying too much about different things: 2 = More than half the days Trouble relaxin = More than half the days Being so restless that it is hard to sit still: 0 = Not at all Becoming easily annoyed or irritable: 1 = Several days Feeling afraid as if something awful might happen: 2 = More than half the days Total SHILPA-7 score (0-4 normal; 5-9 mild; 10-14 moderate; 15-21 severe): 12 Source: Developed by Drs. Christoph Borden, Fozia Segovia, Kota Sage and colleagues, with an educational charlotte from [employer]. Physical exam (Primary Care) Vital Signs: Last Vital Signs Pulse 78 10/18/24 13:30 BP 136/82 10/18/24 13:30 Pulse Ox 97 10/18/24 13:30 Oxygen Delivery Method Room Air 10/18/24 13:30 Tobacco/Smoking Status: Tobacco use Status Tobacco use date assessed 06/28/24 10/18/24 13:34 Patient Tobacco Use Status Current everyday Tobacco 10/18/24 13:34 Tobacco use type Cigarette 10/18/24 13:34 e-Cigarette/Vaping Use Never Used 10/18/24 13:34 PHQ-9: PHQ-9 Score PHQ-9: Total score 16 10/18/24 13:54 Depression Screening Interpretation: Positive Thrive Assessment: Date of Thrive Assessment Date Thrive assessed 10/18/24 10/18/24 13:34 Currently or been in a relationship where the following occur: No concerns reported Const General: alert; No acute distress Eyes Conjunctivae: conjunctivae normal Resp Auscultation: clear to auscultation bilaterally Cardio Rate: regular rate Rhythm: regular rhythm GI Inspection: Yes normal to inspection Extrem General: Yes normal to inspection and No edema Coding Level of Care Code Est Pt Level 4 (11005) Complex EM visit Add On G2211 Diagnoses Gastroesophageal reflux disease without esophagitis K21.9 Esophagitis presence: without esophagitis Hepatic steatosis K76.0 Reflex sympathetic dystrophy G90.50 Tobacco abuse Z72.0 Essential hypertension I10 Hypertension type: essential hypertension Hypercholesterolemia E78.00 Acquired hypothyroidism E03.9 Hypothyroidism type: acquired Assessment & Plan Assessment & Plan (1) GERD (gastroesophageal reflux disease): Code(s): K21.9 - Gastro-esophageal reflux disease without esophagitis Category: Medical Qualifiers: Esophagitis presence: without esophagitis Qualified Code(s): K21.9 - Gastro-esophageal reflux disease without esophagitis Plan: Avoid the foods that causes that usually spicy foods, tomato products, juices, coffee, soda and foods that your sensitive to. After eating do not lie down, allow 3-4 hours before in lie down. And keep the head of bed above 30 degrees to avoid the acid from going up. (2) Hepatic steatosis: Code(s): K76.0 - Fatty (change of) liver, not elsewhere classified Category: Medical Plan: Low-fat diet and exercise (3) Reflex sympathetic dystrophy: Comment: R leg type 1, L leg type 2 s/p lateral release and medial OR 12/2001 secondary to knee weakness . arms weakness also R leg, lower back and oral , sc implant and removal 2002 problem pain R leg, L arm and perioral area 08/2020 Code(s): G90.50 - Complex regional pain syndrome I, unspecified Category: Medical Plan: Patient follows up with pain management (4) Tobacco abuse: Code(s): Z72.0 - Tobacco use Category: Medical Plan: Patient is strongly advised to stop smoking! (5) Hypertension: Code(s): I10 - Essential (primary) hypertension Category: Medical Qualifiers: Hypertension type: essential hypertension Qualified Code(s): I10 - Essential (primary) hypertension Plan: Continue with blood pressure medication. Decrease salt intake and exercise on amlodipine 10 mg once a day propranolol 60 mg at bedtime (6) Hypercholesterolemia: Code(s): E78.00 - Pure hypercholesterolemia, unspecified Category: Medical Plan: Avoid fried foods, chicken skin, eggs, butter margarine, pastries and meat. Be it pork or beef they have a lot of cholesterol LDL goal of less than 130 and triglyceride of less than 150. (7) Hypothyroidism: Code(s): E03.9 - Hypothyroidism, unspecified Category: Medical Qualifiers: Hypothyroidism type: acquired Qualified Code(s): E03.9 - Hypothyroidism, unspecified Plan: Continue with thyroid medication Plan History of Present Illness The patient is a 49-year-old female presenting for follow-up of hepatic steatosis and management of multiple chronic conditions. She has a history of reflex sympathetic dystrophy, which causes pain in her right leg and left arm, as well as in the perioral area. The patient is under pain management and is on opioid analgesics for this condition. The patient has hypertension, managed with amlodipine 10 mg once daily and propranolol 60 mg at bedtime. She also has hypothyroidism and continues with her thyroid medication. The patient reports hypercholesterolemia, with a goal of maintaining LDL cholesterol below 130 mg/dL and triglycerides below 150 mg/dL. She has a history of migraine and is a smoker, which she acknowledges has increased recently. The patient has been diagnosed with hepatic steatosis and was last seen in June 2024 for follow-up. She has chronic gastroesophageal reflux disease (GERD) and experiences difficulty swallowing, for which she was advised to schedule a barium swallow and was referred to gastroenterology. The patient has tried various medications for GERD, including ranitidine, cimetidine, famotidine, and omeprazole, but none have been effective. Health Maintenance - Smoking cessation strongly advised - Low-fat diet and exercise recommended for reflux management - Vaccination: Received second shingles vaccine three weeks ago Social History - Tobacco use: Patient is a smoker, with increased usage recently - Exercise: Advised to incorporate exercise into routine Review of Systems - Musculoskeletal: Reports pain in right leg, left arm, and perioral area - Gastrointestinal: Reports difficulty swallowing, chronic GERD - Neurological: Reports migraine - General: Reports increased smoking Physical Exam - Respiratory: Clear to auscultation, no wheezes or crackles noted Results Plan The patient is advised to continue with her current hypertension management regimen, including amlodipine and propranolol, and to maintain her thyroid medication for hypothyroidism. For hypercholesterolemia, the goal is to keep LDL cholesterol below 130 mg/dL and triglycerides below 150 mg/dL. The patient is strongly advised to cease smoking to improve overall health and reduce the risk of complications from her existing conditions. For her gastroesophageal reflux disease, a low-fat diet and regular exercise are recommended, and she is advised to follow up with gastroenterology for further evaluation, including a barium swallow test. Pain management for reflex sympathetic dystrophy will continue under her current regimen, and she is encouraged to consult psychiatry for additional support. Patient was informed and verbally consented to the use of an ambient scribe for clinic note documentation during this visit. Discussion Notes During the visit, I discussed with the patient the importance of managing her chronic conditions, including hypertension, hypercholesterolemia, and hypothyroidism, with her current medication regimen. We also talked about the need to quit smoking to improve her overall health and reduce risks associated with her conditions. For her gastroesophageal reflux disease, I recommended a low-fat diet and regular exercise, and advised her to follow up with gastroenterology for further evaluation, including a barium swallow test. I also encouraged her to continue her pain management for reflex sympathetic dystrophy and consider consulting psychiatry for additional support. Patient Instructions - Continue taking amlodipine and propranolol for blood pressure management. - Maintain thyroid medication as prescribed. - Aim to keep LDL cholesterol below 130 mg/dL and triglycerides below 150 mg/dL. - Strongly consider quitting smoking to improve health. - Follow a low-fat diet and incorporate regular exercise for GERD management. - Schedule a barium swallow test and follow up with gastroenterology. - Continue pain management regimen and consider consulting psychiatry for support.
[2024-10-18 13:30] VITALS: BP 136/82; PULSE 78; O2SAT 97
== END 2024-10-18 14:06 | disposition home or self-care (01) ==
LOC: HO.HMCH 13:28
PROVIDERS: PCP Internal Medicine; Visit Provider Internal Medicine
DX: K21.9 Gastro-esophageal reflux disease without esophagitis (principal); K76.0 Fatty (change of) liver, not elsewhere classified; G90.50 Complex regional pain syndrome I, unspecified; Z72.0 Tobacco use; I10 Essential (primary) hypertension; E78.00 Pure hypercholesterolemia, unspecified; E03.9 Hypothyroidism, unspecified

== ENCOUNTER → 2024-10-18 13:27 | Outpatient (BNVA) | payer MEDICARE, MEDICAID, SELFPAY | PROVIDERS: PCP Internal Medicine; Visit Provider Internal Medicine | DX: K21.9 Gastro-esophageal reflux disease without esophagitis (principal); K76.0 Fatty (change of) liver, not elsewhere classified; I10 Essential (primary) hypertension; E78.00 Pure hypercholesterolemia, unspecified; E03.9 Hypothyroidism, unspecified; F17.200 Nicotine dependence, unspecified, uncomplicated; Z71.6 Tobacco abuse counseling | CPT/HCPCS: 99212 ==

== ENCOUNTER 2025-02-01 08:37 | Outpatient (REF) | payer MEDICARE, MEDICAID, SELFPAY ==
--- OUTSIDE RECORDS SUMMARY | 2012-09-06 | XMS_ITS | Encounter Summary ---
Author Organization [facility] Address [address] [place] [address] [place] [phone] Phone Care Team Providers Care Securities Broker Name Role Phone Unavailable Primary Care Provider Unavailabl e Encounter Details Date Type Department Care Team (Late st Contact Info) Description 09/06/2012 Hospital Encounter [facility],Outside Imaging [address] [place] [address] Unknown, Unknown, Social History Tobacco Use Types [...] PM EDT Office Visit [facility] [address] [place] [address] Tory Pleitez MD [address] [place] [phone] documented as of this encounter Procedures Procedure [...] It is not the complete legal health record.[facility]
--- OUTSIDE RECORDS SUMMARY | 2012-10-01 | XMS_ITS | Encounter Summary ---
Author Organization [facility] Address [address] [place] [address] [place] [phone] Phone Care Team Providers Care Retail Wireless Associate Name Role Phone Unavailable Primary Care Provider Unavailabl e Encounter Details Date Type Department Care Team (Late st Contact Info) Description 10/01/2012 Hospital Encounter [facility],Outside Imaging [address] [place] [address] Unknown, Unknown, Social History Tobacco Use Types [...] PM EDT Office Visit [facility] 22 [place] [address] Tory Pleitez MD [address] [place] [phone] documented as of this encounter Procedures Procedure [...] It is not the complete legal health record.[facility]
[2025-02-01 08:56] LABS: MANUAL DIFF FLAG NO
--- OUTSIDE RECORDS SUMMARY | 2025-02-01 09:13 | XMS_ITS | Clinical Summary ---
Author Organization [facility] Address [address] [address] Phone Care Team Providers Care Hospice Team Lead Name Role Phone Marimar Kimble MD Primary Care Provider [phone] Allergies Active Allergy Reactions Criticality Noted Date Comments Sulfamethoxazole-Trimethopri m 08/04/2022 Itching, full body contractions Ketamine 08/04/2022 Increases neuralgia Levofloxacin 08/04/2022 General intense body aches and paresthesia Metoprolol Succinate 08/04/2022 General intense body aches and paresthesia Metoprolol Tartrate 08/04/2022 General intense body aches and paresthesia Thiethylperazine Maleate 08/04/2022 Itching, full body contractions Medications propranoloL (INDERAL LA) 60 mg 24 hr capsule Take 60 mg by mouth daily. Active sertraline (ZOLOFT) 25 MG tablet Take 12.5 mg by mouth daily. Active amLODIPine (NORVASC) 10 MG tablet Take 10 mg by mouth daily. Active meclizine (ANTIVERT) 25 MG tablet Take 25 mg by mouth 4 (four) times a day as needed. Active montelukast (SINGULAIR) 10 mg tablet Take 10 mg by mouth nightly at bedtime. Active cholecalciferol (VITAMIN D3) 50,000 unit tablet Take 50,000 Units by mouth every 7 days. Active folic acid (FOLVITE) 1 MG tablet Take 1 mg by mouth daily. Active amitriptyline (ELAVIL) 25 MG tablet Take 25 mg by mouth nightly at bedtime. Active levonorgestrel (MIRENA UTRN) by Intrauterine route. 10/05/19 16 Active Medication-Free Text Naritriptan 2.5 mg- as needed Active Medication-Free Text Emla topical cream- for bursitis in left scapula. Active levothyroxine (SYNTHROID, LEVOTHROID) 112 MCG tabletIndications: Acquired hypothyroidism TAKE ONE TABLET BY MOUTH EVERY DAY 90 tablet 3 10/01/19 23 Active lidocaine (LIDODERM) 5 % Place 1 patch onto the skin daily. Remove & Discard patch within 12 hours or as directed by MD Active QUEtiapine (SEROQUEL) 100 MG tablet Take 200 mg by mouth nightly at bedtime. 07/27/19 25 Active Active Problems Problem Noted Date Diagnosed Date Polycystic ovarian syndrome 08/04/2022 05/0 04/2022 Assessment & Plan (08/05/2024 1:30 PM EDT): No menses w/ IUD. Assessment & Plan (08/06/2023 3:14 PM EDT): Occasional spotting, has IUD. Assessment & Plan (08/04/2022 6:21 PM EDT): Amenorrheic, has IUD. GERD (gastroesophageal reflux disease) 08/04/2022 Hypertension 08/04/2022 08/04/2022 Post-traumatic stress disorder 08/04/2022 0 08/04/2022 Vitamin D deficiency 08/04/2022 08/04/2022 Assessment & Plan (08/05/2024 1:30 PM EDT): Level was good last year on current rx. Will repeat with upcoming labs. Assessment & Plan (08/06/2023 3:14 PM EDT): Will check levels & adjust as appropriate. Assessment & Plan (08/04/2022 6:22 PM EDT): Has had very low levels with difficulty getting them up. Reports levels have improved on current rx, still vitamin D3, but pill is different. Will call for recent labs. Acquired hypothyroidism 08/04/2022 Assessment & Plan (08/05/2024 1:31 PM EDT): Reports good consistency taking rx appropriately. Has lost weight. Will check labs & adjust as appropriate. Assessment & Plan (08/06/2023 3:15 PM EDT): Reports good consistency taking rx appropriately. Weight is fairly stable. Will check labs today & adjust as appropriate. Assessment & Plan (08/04/2022 6:24 PM EDT): Reports good consistency taking rx appropriately. Weight is stable. Labs are normal per report, will call for results. Hyperparathyroidism 08/04/2022 Assessment & Plan (08/05/2024 1:31 PM EDT): Still need records from [facility] @ previous evaluation. Will repeat labs. Assessment & Plan (08/06/2023 3:16 PM EDT): Still need records from [facility] @ previous evaluation. Will check labs today. Assessment & Plan (08/04/2022 6:25 PM EDT): I believe has had elevated calcium @ times on labs. Will obtain more recent labs & records from [facility] @ previous evaluation. Multinodular goiter 08/04/2022 Assessment & Plan (08/05/2024 1:31 PM EDT): S/p benign FNA. Exam unrevealing. Ultrasound last year without suspicious findings/changes. Assessment & Plan (08/05/2024 1:29 PM EDT): >>ASSESSMENT AND PLAN FOR THYROID NODULE WRITTEN ON 08/04/2022 6:25 PM BY PATTI PLEITEZ MD S/p benign FNA. No compressive symptoms. Exam unrevealing. Will obtain records & determine if further imaging needed. Assessment & Plan (08/05/2024 1:29 PM EDT): >>ASSESSMENT AND PLAN FOR THYROID NODULE WRITTEN ON 08/06/2023 3:16 PM BY PATTI PLEITEZ MD S/p benign FNA. Exam unrevealing. Will repeat ultrasound. Will obtain previous images for comparison. Social History Tobacco Use Types Packs/Day Years Used Date Smoking Tobacco: Never Smokeless Tobacco: Never Tobacco Cessation:Counseling Given: Not Answered Education Answer Date Recorded Are you interested [...] on file Sexual Orientation Not on file Last Filed Vital Signs Vital Sign Reading Time Taken Comments Blood Pressure 132/84 08/05/2024 11:59 AM EDT Pulse 72 08/05/2024 11:59 AM EDT Temperature 37.1 C (98.8 F) 08/06/2023 1:08 PM EDT Respiratory Rate - - Oxygen Saturation 99% 08/05/2024 11:59 AM EDT Inhaled Oxygen Concentration - - Weight 104.3 kg (230 lb) 08/05/2024 11:59 AM EDT Height 168.9 cm (5' 6.5 ) 08/05/2024 11:59 AM ED T Body Mass Index 36.57 08/05/2024 11:59 AM EDT Plan of Treatment Upcoming Encounters Date Type Department Care Team (Late st Contact Info) Description 08/09/2025 12:00 PM EDT Office Visit [facility] [address] [place] [address] [place] [address] Patti Pleitez MD [address] [place] [id number] [email or web address] Health Maintenance Due Date Last Done Comments Adult Td,Tdap Booster 1974 LIPID PANEL 1974 DEPRESSION SCREENING 1986 HEPATITIS C SCREENING 1992 HIV ONE-TIME SCREENING (18-6 5 YEARS) 1992 PAP SMEAR 06/13/1995 MAMMOGRAM 2014 COLOGUARD 06/13/2019 COLONOSCOPY 06/13/2019 COLORECTAL CANCER SCREENING 06/13/2019 FIT TEST 06/13/2019 FOBT 06/13/2019 SIGMOIDOSCOPY 06/13/2019 VIRTUAL COLONOSCOPY 06/13/2019 PNEUMOCOCCAL VACCINES (50+ y ears) (1 of 1 - PCV) 2024 ZOSTER VACCINES (1 of 2) 2024 TSH LEVEL 08/05/2024 08/06/2023 INFLUENZA VACCINE (#1) 2024 COVID-19 VACCINE (1 - 2024-2 6 season) 2024 BLOOD PRESSURE 02/05/2025 08/05/2024 SCREENING FOR DIABETES 08/05/2026 08/06/2023 RSV VACCINE (1 - 1-dose 75+ series) 2049 SMOKING STATUS SCREENING (On ce After 26 Yrs) Completed 08/05/2024 HEPATITIS A VACCINES Aged Out No long er eligible based on patient's age to complete this topic HIB VACCINES Aged Out No longer eligi ble based on patient's age to complete this topic MENINGOCOCCAL VACCINES (ACWY) Aged Out No longer eligible based on patient's age to complete this topic MENINGOCOCCAL VACCINES (B) Aged Out N o longer eligible based on patient's age to complete this topic Medical Devices Not on file Procedures Procedure Name Priority Date/Time Associated Diagnosis Comments TSH WITH REFLEX Routine 08/06/2023 1:44 PM EDT Acquired hypothyroidism from Last 3 Months or Most Recently Relevant to Health Maintenance Results * TSH with reflex (08/06/2023 1:44 PM EDT) TSH 2.64 0.27 - 4.20 uIU/mL [facility] Blood 08/06/2023 1:44 PM EDT 08/06/2023 1:53 PM EDT us Patti Pleitez MD LAB BLOOD ORDERABLES F inal Result [address] [id number] from Last 3 Months or Most Recently Relevant to Health Maintenance [facility] [place] B Member Subscriber Plan / Payer (Ef fective 2004-Present) Name:Janeth Marie Member ID:[id number] Relation to Subscriber:Self Name:Janeth Marie Subscriber ID:[id number] Payer ID:[id number] Group ID:Not on file Type:Medicare Address: [facility] [id number] [place] B Care Teams Hospice Team Lead Relationship Specialty Start Date End Date Marimar Kimble MD [address] [place] [id number] PCP - General Internal Medicine 08/04/22 Additional Source Comments The information contained in this document represents components of the legal health record. It is not the complete legal health record.[facility]
[2025-02-01 09:22] LABS: Hematocrit 38.9 % (37.0-47.0); Hemoglobin 13.3 g/dl (12.0-16.0); Imm Gran Abs Auto 0.03 X10*3/uL (0.00-0.03); Imm Gran Pct Auto 0.4 % (0.0-0.4); Lymphocytes Absolute Auto 2.3 X10*3/uL (1.2-4.9); Mean Corpuscular HGB Conc 34.2 g/dl (31.0-35.0); Mean Corpuscular Hemoglobin 29.8 pg (27.0-33.0); Mean Corpuscular Volume 87.2 fL (80.0-98.0); NRBC Abs Auto 0.000 X10*3/uL (0.0-0.012); NRBC Pct Auto 0.0 /100WBC (0.0-0.2); Platelet Count 264 X10*3/uL (160-400); Red Blood Count 4.46 X10*6/uL (4.20-5.50); White Blood Count 8.2 X10*3/uL (4.8-10.8)
[2025-02-01 10:00] LABS: Alanine Aminotransferase 21 U/L (0-31); Albumin Level 4.5 g/dL (3.5-5.0); Alkaline Phosphatase 93 U/L (39-117); Anion Gap 13 (12-20); Aspartate Amino Transferase 21 U/L (5-31); Blood Urea Nitrogen 8 mg/dL (9-16); Calcium 10.5 mg/dL (8.4-10.2); Carbon Dioxide 26 mmol/L (22-29); Chloride 104 mmol/L (96-108); Cholesterol 205 mg/dL (<200); Estimated Glomerular Filt Rate 58; HDL Cholesterol 47 mg/dL (>40); Potassium 3.4 mmol/L (3.3-5.1); Sodium 140 mmol/L (135-145); Total Protein 7.6 g/dL (6.5-8.0); Triglycerides 113 mg/dL (<150)
[2025-02-01 10:16] LABS: Free T4 (Free Thyroxine) 1.15 ng/dL (0.71-1.85); Thyroid Stimulating Hormone 0.97 uIU/mL (0.32-4.0)
[2025-02-01 10:22] LABS: Folate 13.4 ng/mL (> or = 4.0); Vitamin B12 200 pg/mL (200-900)
== END 2025-02-01 08:38 | disposition home or self-care (01) ==
LOC: HO.LAB 08:37
PROVIDERS: PCP Internal Medicine; Visit Provider Internal Medicine
DX: Z13.1 Encounter for screening for diabetes mellitus (principal); E78.00 Pure hypercholesterolemia, unspecified
CPT/HCPCS: 36415; 80053; 80061; 82306; 82607; 82746; 83036; 84439; 84443; 85025; 85652

== ENCOUNTER 2025-02-03 14:04 | Outpatient (AMB) | payer MEDICARE, MEDICAID, SELFPAY ==
--- OUTSIDE RECORDS SUMMARY | 2012-09-06 | XMS_ITS | Encounter Summary ---
Author Organization [facility] Address [address] [place] [address] [place] [phone] Phone Care Team Providers Care Harvest Supervisor Name Role Phone Unavailable Primary Care Provider Unavailabl e Encounter Details Date Type Department Care Team (Late st Contact Info) Description 09/06/2012 Hospital Encounter [facility],Outside Imaging [address] [place] [address] Unknown, Unknown, Social History Tobacco Use Types Packs/Day Years Used Date Smoking Tobacco: Never Smokeless Tobacco: Never Education Answer Date Recorded Are you interested in more education? Not on ana e 08/04/2022 Are you concerned about learning? Not on file 08/04/2022 No 08/04/2022 No 08/04/2022 Digital Access Answer Date Recorded No 08/31/2022 No 08/31/2022 Reliable internet access at home? Not on file 08/31/2022 Device with a working camera? Not on file Comments Unknown Sex and Gender Information Value Date Recorded Sex Assigned at Not on file Legal Sex Female 5:17 PM EST Gender Identity Not on file Sexual Orientation Not on file documented as of this encounter Plan of Treatment Upcoming Encounters Date Type Department Care Team (Late st Contact Info) Description 08/09/2025 12:00 PM EDT Office Visit [facility] [address] [place] [address] Tory Pleitez MD [address] [place] [phone] documented as of this encounter Procedures Procedure Name Priority Date/Time Associated Diagnosis Comments US THYROID GLAND OUTSIDE (NO INTERPRETATION) Routine 09/06/2012 12:00 AM EDT documented in this encounter Results * US Thyroid Gland Outside (No Interpretation) (09/06/2012 12:00 AM EDT) Narrative SYSTEMGENERATED, DOCUMENTATION - 08/07/2023 9:36 AM EDT This study is for PACS storage only and not for interpretation. us Unknown Unknown MD [facility] W/OUT INT ERPRETATION Final Result documented in this encounter Visit Diagnoses Not on filedocumented in this encounter Additional Source Comments The information contained in this document represents components of the legal health record. It is not the complete legal health record.[facility]
--- OUTSIDE RECORDS SUMMARY | 2012-10-01 | XMS_ITS | Encounter Summary ---
Author Organization [facility] Address [address] [place] [address] [place] [phone] Phone Care Team Providers Care Floorperson Name Role Phone Unavailable Primary Care Provider Unavailabl e Encounter Details Date Type Department Care Team (Late st Contact Info) Description 10/01/2012 Hospital Encounter [facility],Outside Imaging [address] [place] [address] Unknown, Unknown, Social History Tobacco Use Types [...] PM EDT Office Visit [facility] [address] [place] [address] Tory Pleitez MD [address] [place] [phone] documented as of this encounter Procedures Procedure Name Priority Date/Time Associated Diagnosis Comments US THYROID GLAND OUTSIDE (NO INTERPRETATION) Routine 10/01/2012 12:00 AM EDT documented in this encounter Results * US Thyroid Gland Outside (No Interpretation) (10/01/2012 12:00 AM EDT) Narrative Record, 08/07/2023 9:35 AM EDT This study is for PACS storage only and not for interpretation. Procedure Note Record, 08/07/2023 This study is for PACS storage only and not for interpretation. us Unknown Unknown [facility] W/OUT INT ERPRETATION Final Result documented in this encounter Visit Diagnoses Not on filedocumented in this encounter Additional Source Comments The information contained in this document represents components of the legal health record. It is not the complete legal health record.[facility]
--- OUTSIDE RECORDS SUMMARY | 2025-02-02 23:59 | XMS_ITS | Continuity of Care Document ---
Author Organization [facility] Address [address] [place] [id number]- Care Team Providers Care Escrow Closer Name Role Phone Po Marimar REGALADO Primary Care Physician Encounter [facility] [place] Date(s): 01/03/25 - 02/02/25 [facility] [address] [place] [id number]- Attending Physician: Elias Craig Encounter Type: Triage Allergies, Adverse Reactions, Alerts Substance Criticality Severity Reaction Reaction Severity Status metoprolol Active Torecan Active Levaquin Active Bactrim DS chills, n/v, tremors Active Ketamine Hydrochloride Active Medications amitriptyline 25 mg oral tablet Refills 0, Maintenance, 09/11/22 3:53:00 PM EDT, Partial fill upon patient request if the prescription is for a schedule II opioid drug. Start Date: 09/11/22 Status: Ordered Medication Dispense Status: Completed Total Allowed Fills: 1 Fills Dispensed: 0 amLODIPine 10 mg oral tablet 1 tablet = 10 mg, By Mouth, Daily, # 30 tablet, 0 Refills, Maintenance, 09/11/22 3:53:00 PM EDT, Tablet, Partial fill upon patient request if the prescription is for a schedule II opioid drug. Start Date: 09/11/22 Status: Ordered Medication Dispense Status: Completed Quantity: 30.0 Unit: tablet Total Allowed Fills: 1 Fills Dispensed: 0 Claritin 10 mg oral tablet 10 mg, 1, tablet, By Mouth, Daily, Refills 0, Maintenance, 9/30/25 3:29:00 PM EDT Start Date: 01/03/25 Status: Ordered Medication Dispense Status: Completed Total Allowed Fills: 1 Fills Dispensed: 0 Controlled Substance Agreement Controlled Substance Agreement, See Instructions, # 1 each, Refills 0, Tot. Refills 0, Maintenance,Updated On 12/17/23 Pharmacy I: [facility] DX: M79.2 neuropathic pain lower extrem, G90.529 CRPS, 12/17/23 4:25:00 PM EDT, Supply Start Date: 12/17/23 Status: Ordered Medication Dispense Status: Completed Quantity: 1.0 Unit: each Total Allowed Fills: 1 Fills Dispensed: 0 Excedrin Migraine By Mouth, Every 6 hours, PRN Headache, 0 Refills, Maintenance, 02/01/20 1:54:00 PM EDT Start Date: 02/01/20 Status: Ordered Medication Dispense Status: Completed Total Allowed Fills: 1 Fills Dispensed: 0 folic acid 1 mg oral tablet 1 mg, 1, tablet, By Mouth, Daily, # 30 tablet, Refills 0, Maintenance, 04/09/21 3:17:00 PM EST, Partial fill upon patient request if the prescription is for a schedule II opioid drug. Start Date: 04/09/21 Status: Ordered Medication Dispense Status: Completed Quantity: 30.0 Unit: tablet Total Allowed Fills: 1 Fills Dispensed: 0 Levothroid 0.112 mg oral tablet 1 tablet = 112 mcg, By Mouth, Daily, 0 Refills, Maintenance, 03/10/13 2:22:44 PM EST Start Date: 03/10/13 Status: Ordered Medication Dispense Status: Completed Total Allowed Fills: 1 Fills Dispensed: 0 lidocaine 5% topical film 1 - 2 patches, Topically, Daily, remove after 12 hours. PRN moderate to severe pain, # 30 patch, 0 Refills, Maintenance, 01/27/23 4:11:00 PM EDT, Film, [facility], 1 - 2 patches Topically Daily,Instr:remove after 12 hours. PRN moderate to severe pain, 170, cm, 01/27/23 14:29:00 EDT, Height Start Date: 01/27/23 Status: Ordered Medication Dispense Status: Completed Quantity: 30.0 Unit: patch Total Allowed Fills: 1 Fills Dispensed: 0 meclizine 25 mg oral tablet 1 tablet = 25 mg, By Mouth, 4 times a day, PRN nausea/vertigo, # 112 tablet, 5 Refills, Maintenance, 06/03/23 9:29:00 AM EST, [facility], 170, cm, 04/07/23 14:45:00 EST, Height Start Date: 06/03/23 Status: Ordered Medication Dispense Status: Completed Quantity: 112.0 Unit: tablet Total Allowed Fills: 6 Fills Dispensed: 0 Mirena 52 mg intrauteral device 1 each = 52 mg, Once, 0 Refills, Maintenance, 11/21/15 2:23:10 PM EDT Start Date: 11/21/15 Status: Ordered Medication Dispense Status: Completed Total Allowed Fills: 1 Fills Dispensed: 0 montelukast 10 mg oral tablet Refills 0, Maintenance, 10/10/20 2:35:00 PM EDT, Partial fill upon patient request if the prescription is for a schedule II opioid drug. Start Date: 10/10/20 Status: Ordered Medication Dispense Status: Completed Total Allowed Fills: 1 Fills Dispensed: 0 Narcan 4 mg/0.1 mL nasal spray See Instructions, SPRAY ONCE INTO ONE NOSTRIL MAY REPEAT Q 2 TO 3 MINUTES IN ALTERNATE NOSTRILS IF NO RESPONSE, # 2 each, 0 Refills, Maintenance, 04/17/21 8:19:00 AM EST, [place], [facility], For personal and community harm reduction, 170.18, cm, 02/05/21 15:22:00 EDT, Height Start Date: 04/17/21 Status: Ordered Medication Dispense Status: Completed Quantity: 2.0 Unit: each Total Allowed Fills: 1 Fills Dispensed: 0 propranolol 60 mg oral capsule, extended release 60 mg, 1, capsule, By Mouth, Daily at bedtime, Refills 0, Maintenance, 12/30/21 2:15:00 PM EDT, Partial fill upon patient request if the prescription is for a schedule II opioid drug. Start Date: 12/30/21 Status: Ordered Medication Dispense Status: Completed Total Allowed Fills: 1 Fills Dispensed: 0 QUEtiapine 100 mg oral tablet 1.5 to 2 tablets, By Mouth, Daily at bedtime, # 56 tablet, Refills 2, Tot. Refills 2, Maintenance, 11/15/24 8:55:00 AM EDT, Route to Pharmacy Electronically, [facility], 170, cm, 09/13/24 14:50:00 EDT, Height Start Date: 11/15/24 Status: Ordered Medication Dispense Status: Completed Quantity: 56.0 Unit: tablet Total Allowed Fills: 3 Fills Dispensed: 0 sertraline 25 mg oral tablet 0.5 tablet = 12.5 mg, By Mouth, Daily, 0 Refills, Maintenance, 09/11/22 3:53:00 PM EDT, Tablet, Partial fill upon patient request if the prescription is for a schedule II opioid drug. Start Date: 09/11/22 Status: Ordered Medication Dispense Status: Completed Total Allowed Fills: 1 Fills Dispensed: 0 Vitamin D 70125 iu oral capsule 1, capsule, By Mouth, Every week, # 4 capsule, Refills 0, Maintenance, 04/09/21 3:19:00 PM EST, Partial fill upon patient request if the prescription is for a schedule II opioid drug. Start Date: 04/09/21 Status: Ordered Medication Dispense Status: Completed Quantity: 4.0 Unit: capsule Total Allowed Fills: 1 Fills Dispensed: 0 Problem List Condition Confirmation Course Effective Dates [...] (gastroesophageal reflux disease) Confirmed Active History of urinary hesitancy, opioid treatment associated Confirmed Active History of vertigo Confirmed Active Hypercholesterolemia Confirmed Active Hypertension Confirmed Active Hypertriglyceridemia Confirmed Active Frequent bowel movements Confirmed Active Irritable Bowel Syndrome Confirmed Active [...] medical condition Confirmed Active Myalgia Confirmed Active Neuropathic pain, lower extremity 15 Confirmed Active Neuropathic pain: trunk 16 Confirmed Active Neuropathic pain, upper extremity 17 Confirmed Active Opioids causing adverse effect in therapeutic use: morphine 18 Confirmed Active Opioids causing adverse effect in therapeutic use: oxycodone 19 Confirmed Active Oral pain Confirmed Active Opioids causing adverse effects in therapeutic use: buprenorphine 20 Confirmed Active Wrist pain, left Confirmed Active PCOS - Polycystic ovarian syndrome Confirmed Active Post-traumatic stress disorder Confirmed Active Risk assessment: Adverse Childhood Experience 21 Confirmed Active Severe obesity (BMI 35.0-39.9) with comorbidity Confirmed Active Shoulder pain, right Confirmed Active Tobacco user since about age 13 Confirmed Active Medication course changed: opioids tapered to elim->last day of tx 05/30/24 Confirmed Active 1Tiagabine trialed 07/08-07/22/2012. Associated with [...] Disability Index: 70% ( crippled ); updated [facility] Back Pain Disability Scale score: 65; [...] as well as muscle aches, trial abandoned. 15In setting of hisory of complex regional pain syndrome 2, lower extremity, right 16In the setting of history of complex regional pain syndrome 1, involving the trunk 17In the setting of history of complex regional pain syndrome 1, upper extremity, left 18Immediate release morphine trialed 12/03/2012 to 12/07/12. Morphine to a dose of 360mg/day resulted inless pain control than 96 to 112mg hydromorphone/day and was associated with abdominal pain, severeheadache and vertigo. 19Trial of i.r. oxycodone begun 12/14/2012. Rotation to oxycodone was initially associated with improved pain control but with continued use, analgesic efficacy diminished & persistent nausea/vomiting and diarrhea led to the abandonment of oxycodone on 02/10/2013.. 20Transdermal buprenorphine begun 12/18/2011. Treatment with the 20mcg/hr patch in addition to hydromorphone was associated with improved pain reduction; AEs including rash, pruritus, & skin breakdown at the patch site; chest pain; altered mood (aggression, anger). Transdermal buprenorphine d/c'd 02/01/12. 21ACE score: 6 on 02/11/17 Social History Social History Type Response Smoking Status 5-9 cigarettes (betw een 1/4 to 1/2 pack)/day in last 30 days; Type: Cigarettes; Type: e-cigarettes entered on: 06/27/24 Sex Sex Representation Female (finding) Laboratory * Fozia Ovalle: PERFORM Event Display: Laboratory Results Scanned Authored Date: [id number] Consult note * Fozia Ovalle: PERFORM Event Display: Consultation Note Authored Date: [id number] Patient Care team information Care Team Personnel Name: Diaz Nice Jr, MD Position: [facility] Anesthesiology MD Member Role: Lifetime Consulting Physician Address: [address] [place] [address] Telecom: Name: Marimar Kimble MD Position: Reference Physician Member Role: PCP Address: [address] [place] [address] Telecom: Care Team Related Persons Name: BRANDON MCCALL Insurance Providers Guarantor name: CATY CAL Health Plan Information #: 1 Payer: MEDICARE B Payer Identifier: NA Member Number: [id number] Group Number: [id number] Subscriber Identifier: MARGOT Relationship to Subscriber: self Coverage Type: NA Coverage Verification Date: NA Telecom: NA Address: NA Health Plan Information #: 2 Payer: [employer] Payer Identifier: NA Member Number: [id number] Group Number: [id number] Subscriber Identifier: NA Relationship to Subscriber: self Coverage Type: MEDICAID Coverage Verification Date: NA Telecom: NA Address: NA
--- NOTE | 2025-02-03 14:11 | MHC.PC.OV ---
Vital Signs 02/03/25 14:12 02/03/25 14:49 Height 5 ft 6 in BMI Reason not done Patient refused/unable BP 130/90 H 144/90 H Blood Pressure Location Lt brachial Lt brachial Position Sitting Sitting Pulse 79 Pulse Source Pulse Oximeter Temp 97.3 F Temp Source Temporal Artery Scan Pulse Oximetry (%) 95 Oxygen Delivery Method Room Air Intake Visit Reasons: 3 month follow up Intake Note: Patient is here to follow up on HTN. Mine Laborer Required: No Websphere Administrator: Not Required per policy Accompanied by: Self / Same As Patient Allergies ketamine (KETAMINE) Allergy (Severe, Verified 02/03/25 14:12) FULL BODY MUSCLE SPASM, CONTRACTIONS, increase in pain - severe sensitivity levofloxacin (From LEVAQUIN) Allergy (Severe, Verified 02/03/25 14:12) FLU SYMPTOMS sulfamethoxazole (From BACTRIM DS) Allergy (Severe, Verified 02/03/25 14:12) FLU LIKE SYMPTOMS metoprolol (METOPROLOL) Allergy (Unknown, Verified 02/03/25 14:12) MUSCLE CONTRACTION,TREMORS Sulfa (Sulfonamide Antibiotics) (SULFA (SULFONAMIDE ANTIBIOTICS)) Allergy (Unknown, Verified 02/03/25 14:12) UNKNOWN hydrochlorothiazide Adverse Reaction (Unknown, Verified 02/03/25 14:12) Unknown From TORECAN Allergy (Unknown, Uncoded 02/03/25 14:12) UNKNOWN steri strips Adverse Reaction (Unknown, Uncoded 02/03/25 14:12) skin irritation Medication List - Last Reconciled 02/03/25 by Marimar Kimble MD amitriptyline 25 mg PO BEDTIME 90 days amlodipine (Norvasc) 10 mg PO DAILY blood pressure monitor As directed cholecalciferol (vitamin D3) 1,250 mcg PO QWEEK 90 days cyanocobalamin (vitamin B-12) 1,000 mcg PO DAILY folic acid 1 mg PO DAILY 90 days levothyroxine 112 mcg PO DAILY 90 days montelukast 10 mg PO BEDTIME propranolol ER 60 mg PO BEDTIME quetiapine 50 mg PO BEDTIME sertraline 12.5 mg (1/2 x 25 mg) PO DAILY 90 days Tobacco use date assessed: 02/03/25 Dental Screening Dental Screen Date: 10/18/24 [facility] Medical History (Updated 12/14/23 @ 13:49 by Marimar Kimble MD) GERD (gastroesophageal reflux disease) Rash Incisional breast wound Thyroid nodule Right distal ulnar fracture Ischemic colitis Hypercholesterolemia Tobacco abuse Overactive bladder Migraine Allergic rhinitis Primary hyperparathyroidism Hypertension Psoriasis Polycystic ovarian disease Hypothyroidism Reflex sympathetic dystrophy Surgical History History of excision of mass (11/06/22) Hx of arthroscopy (2015) Hx of removal of cyst (2007) History of cholecystectomy (2010) History of oral surgery (2008) History of incision and drainage (2007) History of right knee surgery (2001) History of removal of cyst (1999) History of arthroscopy of right knee (1997) History of placement of ear tubes (1977) Family History Mother History of breast cancer, Onset Age: 45 Maternal Grandmother History of breast cancer, Onset Age: 60 Paternal Uncle Substance abuse Schizophrenia Paternal Grandfather Substance abuse Maternal Grandfather Substance abuse Other Mental health disorder Social History (Updated 02/03/25 @ 14:18 by JOSE ANTONIO Silver) Housing: Apartment Alcohol intake: never Patient Tobacco Use Status: Current everyday Tobacco user Tobacco use type: Cigarette Cigarette Packs Per Day: 1 Cigarettes Per Day: 12 Years Smoked: 6 e-Cigarette/Vaping Use: Never Used Second Hand Smoke Exposure: Yes service: No Current occupational status: unemployed Current occupation: rt hand Cognitive needs: Yes (Power wheelchair, Rollator walker) Hearing needs: No Vision needs: Yes (Glasses) Questionnaire Thrive Questionnaire Date Thrive assessed: 10/18/24 I am a: Patient What is your living situation today?: I have a steady place to live Within the past 12 months, did the food you bought not last and you didn't have the money to get more?: Never true Within the past 12 months, did you worry whether your food would run out before you got money to buy more?: Never true Do you have trouble paying for medicines?: I choose not to answer this question Do you have trouble getting transportation to medical appointments?: No Do you have trouble paying your heating and electricity bill?: No Do you have trouble taking care of your child, family member or friend?: I choose not to answer this question Do you have trouble with day-to-day activities such as bathing, preparing meals, shopping, managing finances, etc.?: Yes Are you currently unemployed and looking for a job?: No Are you interested in more education?: No Please select the resources that you would like help with: None Currently or been in a relationship where the following occur: No concerns reported THRIVE Score: 0 SHILPA-7 AMB Questionnaire SHILPA-7 Date SHILPA - 7 assessed: 10/18/24 Source: Developed by Drs. Christoph Borden, Fozia Segovia, Kota Sage and colleagues, with an educational charlotte from [employer] Physical exam (Primary Care) Vital Signs: Last Vital Signs Temp 97.3 F 02/03/25 14:12 Pulse 79 02/03/25 14:12 BP 144/90 H 02/03/25 14:49 Pulse Ox 95 02/03/25 14:12 Oxygen Delivery Method Room Air 02/03/25 14:12 Tobacco/Smoking Status: Tobacco use Status Tobacco use date assessed 02/03/25 02/03/25 14:20 Patient Tobacco Use Status Current everyday Tobacco 02/03/25 14:20 Tobacco use type Cigarette 02/03/25 14:20 e-Cigarette/Vaping Use Never Used 02/03/25 14:20 Thrive Assessment: Date of Thrive Assessment Date Thrive assessed 10/18/24 02/03/25 14:20 Currently or been in a relationship where the following occur: No concerns reported Const General: alert; No acute distress Eyes Conjunctivae: conjunctivae normal Resp Auscultation: clear to auscultation bilaterally Cardio Rate: regular rate Rhythm: regular rhythm GI Inspection: Yes normal to inspection Coding Level of Care Code Est Pt Level 4 (72604) Complex EM visit Add On G2211 Diagnoses Essential hypertension I10 Hypertension type: essential hypertension Hypercholesterolemia E78.00 Acquired hypothyroidism E03.9 Hypothyroidism type: acquired Vitamin B 12 deficiency E53.8 Gastroesophageal reflux disease without esophagitis K21.9 Esophagitis presence: without esophagitis Hepatic steatosis K76.0 Hypokalemia E87.6 Reflex sympathetic dystrophy G90.50 Tobacco abuse Z72.0 Assessment & Plan Assessment & Plan (1) Hypertension: Code(s): I10 - Essential (primary) hypertension Category: Medical Qualifiers: Hypertension type: essential hypertension Qualified Code(s): I10 - Essential (primary) hypertension Plan: Continue with blood pressure medication. Decrease salt intake and exercise presently on amlodipine 10 mg once a day propranolol 60 mg at bedtime (2) Hypercholesterolemia: Code(s): E78.00 - Pure hypercholesterolemia, unspecified Category: Medical Plan: Avoid fried foods, chicken skin, eggs, butter margarine, pastries and meat. Be it pork or beef they have a lot of cholesterol LDL goal of less than 130 and triglyceride of less than 150 diet controlled LDL tested in January mildly elevated (3) Hypothyroidism: Code(s): E03.9 - Hypothyroidism, unspecified Category: Medical Qualifiers: Hypothyroidism type: acquired Qualified Code(s): E03.9 - Hypothyroidism, unspecified Plan: Continue with thyroid medication (4) Vitamin B 12 deficiency: Code(s): E53.8 - Deficiency of other specified B group vitamins Category: Medical Plan: Discussed about vitamin B12 1000 mcg once a day (5) GERD (gastroesophageal reflux disease): Code(s): K21.9 - Gastro-esophageal reflux disease without esophagitis Category: Medical Qualifiers: Esophagitis presence: without esophagitis Qualified Code(s): K21.9 - Gastro-esophageal reflux disease without esophagitis Plan: Avoid the foods that causes that usually spicy foods, tomato products, juices, coffee, soda and foods that your sensitive to. After eating do not lie down, allow 3-4 hours before in lie down. And keep the head of bed above 30 degrees to avoid the acid from going up. (6) Hepatic steatosis: Code(s): K76.0 - Fatty (change of) liver, not elsewhere classified Category: Medical Plan: Low-fat diet and exercise (7) Hypokalemia: Code(s): E87.6 - Hypokalemia Category: Medical Plan: Discussed about potassium replacement (8) Reflex sympathetic dystrophy: Comment: R leg type 1, L leg type 2 s/p lateral release and medial OR 12/2001 secondary to knee weakness . arms weakness also R leg, lower back and oral , sc implant and removal 2002 problem pain R leg, L arm and perioral area 08/2020 Code(s): G90.50 - Complex regional pain syndrome I, unspecified Category: Medical Plan: Patient continues with pain management (9) Tobacco abuse: Code(s): Z72.0 - Tobacco use Category: Medical Plan: Strongly advised to stop admission point Plan History of Present Illness The patient is a 49-year-old, wheelchair-bound female presenting for a follow-up visit. Her medical history is significant for left reflex sympathetic dystrophy, hypertension, hypothyroidism, hypercholesterolemia, migraines, posttraumatic stress disorder, hepatic stenosis, and GERD. She has a history of a right distal ulnar fracture in 2016 and is a current smoker. The patient reports chronic pain in the right knee, lower back, and left arm. She has been seeing Dr. Guzmán for pain management, who is planning to retire. Recent blood work from February 01, 2025, showed a normal blood count with no anemia, but an elevated sedimentation rate of 31. Labs also revealed low potassium, mildly elevated calcium, and a creatinine of 1.01, which is a slight increase from her prior levels of 0.8-0.9. Her LDL cholesterol has improved to 136 from a previous 146, her vitamin B12 level is low at 200, and her vitamin D level is high. Thyroid function and liver function tests were normal. For health maintenance, the patient's last colonoscopy was in 2016. She is interested in receiving the shingles vaccine. Health Maintenance The patient's vitamin D level is too high, and she was advised to reduce her intake of 50,000 units from weekly to once every two weeks. There was a discussion about the shingles vaccine, which the patient is interested in getting. Her creatinine has shown a slight upward trend, so she was advised to seldom take NSAIDs like ibuprofen or Excedrin. Social History - Substance Use: The patient is a current smoker. - Functional Status: The patient is wheelchair-bound. Review of Systems - Musculoskeletal: Reports chronic pain in the right knee, lower back, and left arm, and constant swelling from RSD. - Neurological: Reports migraines, for which she occasionally takes Excedrin. - Cardiovascular: Reports her pulse has been staying higher recently. Physical Exam - Vitals: Blood pressure was elevated on examination today. Results - Labs (02/01/2025): - CBC: Normal, no anemia. - Sedimentation Rate: 31 (elevated). - Potassium: Low. - Creatinine: 1.01. - Glucose: Normal. - Calcium: Mildly elevated. - Liver Function: Normal. - LDL Cholesterol: 136. - Vitamin B12: 200 (low). - Vitamin D: Good level. - Thyroid Function: Normal. - Folic Acid: Normal. - Procedures: - Colonoscopy: Last performed in 2017. Plan Patient was informed and verbally consented to the use of an ambient scribe for clinic note documentation during this visit. 1. Hypertension The patient's blood pressure was noted to be elevated, and she reports that her readings at home have been getting slightly higher, along with a higher pulse. The elevated blood pressure is thought to be secondary to her significant, uncontrolled pain. The plan is to continue her current medications, amlodipine 10 mg daily and propranolol 60 mg at bedtime, and focus on managing her underlying pain as the primary treatment for her blood pressure. 2. Chronic Pain / Complex Regional Pain Syndrome The patient has severe chronic pain and is not currently on any pain medication. She has been advised to continue with pain management. Her pain specialist is retiring, and she was encouraged to establish care with a new provider at [facility] as recommended by her current specialist, Dr. Guzmán. 3. Vitamin B12 Deficiency The patient's vitamin B12 level was found to be low at 200, having trended down over the past few years. A prescription for vitamin B12 1000 mcg once a day was sent to her pharmacy. 4. Hypokalemia The patient's potassium level is low, and she is not taking a water pill. She was advised on potassium replacement through dietary changes, including eating more potassium-rich foods like bananas, spinach, and potatoes. 5. Hypercholesterolemia The patient's LDL cholesterol is 136, which is an improvement but still above the goal of less than 130. The condition is currently diet-controlled, and this approach will be continued. 6. Hypothyroidism The patient's thyroid function is normal on her current medication. She will continue with her thyroid medication. 7. Gastroesophageal Reflux Disease For her GERD, the patient was advised to follow a low-fat diet and exercise. 8. Tobacco Use The patient is a current smoker and was strongly advised to stop smoking. Discussion Notes I reviewed the patient's recent blood work with her. I explained that her sed rate is elevated, likely due to inflammation from her RSD, and that her potassium is low, for which I recommended dietary changes like eating bananas and spinach. I noted the slight increase in her creatinine and advised her to be cautious with NSAIDs like Excedrin. We discussed her cholesterol, which is better but still slightly above our goal, and her vitamin D, which is too high, so I recommended she reduce her supplement frequency to every two weeks. I informed her that her Vitamin B12 is low and that I have sent a prescription for a supplement to her pharmacy. We discussed that her elevated blood pressure is most likely a result of her uncontrolled chronic pain, and that the best treatment for her hypertension is to effectively manage the pain. I encouraged her to follow through with the referral to a new paint roller covers supervisor, as her current doctor is retiring. We also discussed the shingles vaccine, including potential side effects, and she is considering it. Patient Instructions - Take vitamin B12 1000 mcg once a day. - Increase your intake of potassium-rich foods, such as bananas, spinach, and potatoes. - Reduce your vitamin D 50,000 unit supplement to once every two weeks. - Avoid taking ibuprofen (Advil, Motrin) or Aleve. - It is very important that you stop smoking. - Continue your current medications for blood pressure and thyroid as prescribed. - Follow up with the paint roller covers supervisor recommended by Dr. Guzmán. - Consider getting the shingles vaccine. Medications: New cyanocobalamin (vitamin B-12) 1,000 mcg PO DAILY 30 caps 3RF E53.8 - Deficiency of other specified B group vitamins
[2025-02-03 14:12] VITALS: BP 130/90; PULSE 79; TEMP 36.3; O2SAT 95
[2025-02-03 14:49] VITALS: BP 144/90
--- OUTSIDE RECORDS SUMMARY | 2025-02-03 14:53 | XMS_ITS | Clinical Summary ---
Author Organization [facility] Address [address] [address] Phone Care Team Providers Care Customer Experience Strategist Name Role Phone Marimar Kimble MD Primary Care Provider [phone] Allergies Active Allergy Reactions Criticality Noted Date [...] 1:31 PM EDT): Still need records from [facility] @ previous evaluation. Will repeat labs. Assessment & Plan (08/06/2023 3:16 PM EDT): Still need records from [facility] @ previous evaluation. Will check labs today. Assessment & Plan (08/04/2022 6:25 PM EDT): I believe has had elevated calcium @ times on labs. Will obtain more recent labs & records from [facility] @ previous evaluation. Multinodular goiter 08/04/2022 Assessment [...] PM EDT Office Visit [facility] [address] [place] [address] [place] [address] Patti Pleitez MD [address] [place] [id number] [email or web address] Health Maintenance Due Date Last Done Comments [...] EDT) TSH 2.64 0.27 - 4.20 uIU/mL [facility] Blood 08/06/2023 1:44 PM EDT 08/06/2023 1:53 PM EDT us Patti Pleitez MD LAB BLOOD ORDERABLES F inal Result [address] [id number] from Last 3 Months or Most Recently Relevant to Health Maintenance [facility] [place] B Member Subscriber Plan / Payer (Ef fective 2004-Present) Name:Janeth Marie Member ID:[id number] Relation to Subscriber:Self Name:Janeth Marie Subscriber ID:[id number] Payer ID:[id number] Group ID:Not on file Type:Medicare Address: [facility] [employer] [facility] [id number] [place] B Care Teams Customer Experience Strategist Relationship Specialty Start Date End Date Marimar Kimble MD [address] [place] [id number] PCP - General Internal Medicine 08/04/22 Additional Source Comments The information contained in this document represents components of the legal health record. It is not the complete legal health record.[facility]
== END 2025-02-03 14:56 | disposition home or self-care (01) ==
LOC: HO.HMCH 14:05
PROVIDERS: PCP Internal Medicine; Visit Provider Internal Medicine
DX: I10 Essential (primary) hypertension (principal); E78.00 Pure hypercholesterolemia, unspecified; E03.9 Hypothyroidism, unspecified; E53.8 Deficiency of other specified B group vitamins; K21.9 Gastro-esophageal reflux disease without esophagitis; K76.0 Fatty (change of) liver, not elsewhere classified; E87.6 Hypokalemia; G90.50 Complex regional pain syndrome I, unspecified; Z72.0 Tobacco use

== ENCOUNTER → 2025-02-03 14:04 | Outpatient (BNVA) | payer MEDICARE, MEDICAID, SELFPAY | PROVIDERS: PCP Internal Medicine; Visit Provider Internal Medicine | DX: I10 Essential (primary) hypertension (principal); E78.00 Pure hypercholesterolemia, unspecified; E03.9 Hypothyroidism, unspecified; E53.8 Deficiency of other specified B group vitamins; K21.9 Gastro-esophageal reflux disease without esophagitis; K76.0 Fatty (change of) liver, not elsewhere classified; E87.6 Hypokalemia; Z72.0 Tobacco use | CPT/HCPCS: 99212 ==